=== PATIENT | female | born 1945 | race Caucasian/White ===

== ENCOUNTER 2017-11-13 11:15 | Day surgery (SDC) | payer MEDICARE, OTHER, SELFPAY ==
--- NOTE | 2017-11-13 07:10 | PCM.HP.BLA ---
History and Physical Date of Admission: 11/13/17 HISTORY AND PHYSICAL ? Abby Ferrara 1945 ? REFERRING PHYSICIAN: ~~Self ? CHIEF COMPLAINT: ~~Consult (Consult colonoscopy) ? HPI: The patient is a 72 year old female who presents for follow-up endoscopy. ? The patient underwent colonoscopy and upper endoscopy on September 01, 2016 which demonstrated gastritis and a larger polyp in the cecal base. ~~Pathology returned as tubulovillous adenoma. ~The site was tattooed and a clip applied. ~KUB demonstrated the clip to be in the cecum. ~She underwent CT scan of the abdomen and pelvis and pre operative lab studies. ~CEA level was within normal range. ~CT scan demonstrated the cecal mass, no significantly enlarged lymph nodes. ~There were lesions noted in the spleen. ~Splenic ultrasound was obtained. ~Review by the radiologist felt these were consistent with hemangiomas - an MRI was recommended. ~In discussions with the patient, she preferred to continue with the planned colon resection. ? I?performed a laparoscopic right hemicolectomy on 09/08/2016. ?The pathology demonstrated villous adenoma (3.5 cm), smaller tubular adenoma (0.6 cm). Appendix with no significant change and omentum with no significant change. 17 out of 17 lymph nodes with no significant pathology. ? ? She noted a recent bout of gastritis which gave her multiple loose stools, but otherwise has been doing well. ? PAST?MEDICAL?HISTORY PAST MEDICAL HISTORY Diagnosis Date Anxiety state, unspecified 12/28/2004 Depression ? Depressive disorder, not elsewhere classified ? Diverticulitis of colon (without mention of hemorrhage)(562.11) ? Essential hypertension, benign ? Obstructive sleep apnea ? ? [facility] Osteopenia ? Other and unspecified hyperlipidemia ? Stage III chronic kidney disease ? Unspecified asthma(493.90) ? ? 05/22/13, +OCTAVIO. Vitamin D deficiency ? ? ? PAST?SURGICAL?HISTORY PAST SURGICAL HISTORY Procedure Laterality Date COLONOSCOP W/ OR W/O BRSH SPEC ? 07/2001 ? Colonoscopy COLONOSCOPY ? 09/01/2016 ? cecal mass - tubulovillous adenoma - nonresectable EGD ? 09/01/2016 ? Gastritis, small hiatal hernia, distal mild esophagitis HEMORRHOID;BAND LIGAT, SNGL/MUL ? 1997 ? Hemorrhoidectomy LAPAROSCOPIC HEMICOLECTOMY ? 09/08/2016 PAST SURGICAL HISTORY OF ? 10/1987 ? rectal fistula surgery PAST SURGICAL HISTORY OF ? 12/1995 ? total hysterectomy -endometriosis REMOVAL GALLBLADDER ? 02/1985 ? Cholecystectomy ? ? CURRENT?MEDICATIONS ? Current Outpatient Prescriptions: fluconazole (DIFLUCAN) 100 mg tablet Take 1.5 tablets once. ~If still symptomatic in 3 days, take additional 1.5 tablets. hydrocortisone 2.5 % cream Apply 1 application to affected area twice daily. Apply to affected area sparingly. Use for 1 to 2 weeks then discontinue. ALPRAZolam (XANAX) 0.25 mg tablet Take 1 tablet by mouth once daily for 180 days. May take extra pill once daily as needed. lisinopril (ZESTRIL, PRINIVIL) 10 mg tablet Take 1 tablet by mouth once daily. albuterol HFA (PROAIR HFA) 90 mcg/actuation inhaler Inhale 2 Puffs as instructed every 4 hours as needed for Wheezing/Shortness of Breath. mometasone (ASMANEX TWISTHALER) 110 mcg (30 doses) twisthaler 1 inhalation once daily, in the morning. [place] teeth and gargle/rinse after use. clonazePAM (KLONOPIN) 0.5 mg tablet Take 1-2 tablets by mouth once daily for 90 days. as directed. sertraline (ZOLOFT) 100 mg tablet Take 1 tablet by mouth once daily. lovastatin (MEVACOR) 20 mg tablet Take 1 tablet by mouth once daily. buPROPion SR (WELLBUTRIN SR) 150 mg 12 hr tablet Take 1 tablet by mouth once daily. gentian jess 1 % soln Apply 1 application to affected area once daily as needed. Use a cotton swab with a small amount of solution to apply to oral mucosa for treatment of thrush once daily as needed. Need just enough to paint the oral mucosa (no more than the amount a cotton swab can hold). CPAP AutoPAP 9-20 cmH2O, suitable mask, humidity, filters. Lifetime supplies. Dx: G47.33 [place]-3 Fatty Acids (FISH OIL) 500 mg cap Take 2 capsules by mouth once daily. ranitidine (ZANTAC 75) 75 mg tablet Take 75 mg by mouth twice daily. CHOLECALCIFEROL (VITAMIN D3) 1,000 UNIT CAP takes two tablets daily MULTIVITAMIN ORAL TAB Take one(1) tablet daily. Miralax / Gatorade Prep Miralax 238 gm bottle, (2) 32 oz bottles of Gatorade, & 4 Dulcolax 5 mg tabs- as directed per instructions benzonatate (TESSALON PERLES) 100 mg capsule Take 1 capsule by mouth three times daily as needed. FOR COUGHING. ? No current facility-administered medications for this visit. ? ALLERGIES: Cats; Molds Extract ? PERSONAL HISTORY: SOCIAL?HISTORY Social History ~~Marital status: ~~~~~~~~~~~~Spouse name: johnathon ~~~~~~~~~~~ ~~Years of education: 16 ~~~~~~~~~~~~~Number of children: 1 ~~~~~~~~ ? Occupational History Occupation ~~~~~~~~~Employer ~~~~~~~~~~~Comment ~~~~~~~~~~~~ self employed ~~~~~~~~~~~~~~~~~~~~~~~~~~retired ? Social History Main Topics ~~Smoking status: Never Smoker ~~~~~~~~~~~~~~~~~~~~~~~~~~~~~~~~~~~~~~~~~~~~~~~~~~~~~~~~~ ? ~~Smokeless tobacco: Never Used ~~~~~~~~~~~~~~~~~~~ ~~Comment: Mother smoked in childhood home. 8 years ~~~~~~~~~~~office [employer] exp in late 20s. ~~Alcohol use: No ~~~~~~~~~ ~~Drug use: No ~~~~~~~~~ ~~Sexual activity: Yes ~~~~~~~~~~~~~~Partners with: Male ? Social History Narrative ~~In current home 10 years. No carpet. Area rugs. ~~1 cat in the home. ~~Central AC. Gas heating. ~~ ? ? FAMILY HISTORY: FAMILY?HISTORY FAMILY HISTORY Problem Relation Age of Onset COPD Mother ? Cancer Father ? ? ? Bladder Hypertension Father ? Allergies Father ? Allergies Paternal Grandmother ? Allergies Paternal Grandfather ? Allergies Brother ? Allergies Paternal Aunt ? Allergies Paternal Uncle ? Allergies Other ? ? ? Cousins ? REVIEW OF SYMPTOMS: ~~The review of systems data was entered by the nurse and reviewed by me ? There are no exam notes on file for this visit. ? ~ PHYSICAL EXAMINATION: ? General: ~The patient is 72 year old female, well nourished, well hydrated in no acute distress. ~The patient is oriented to time, place, and person. ? VITALS: Blood pressure 144/72, pulse 88.~There is no height or weight on file to calculate BMI.~ ? HEENT: ~Normal cephalic, ataumatic, pupils are equally round, sclera are anicteric, mucous membranes are moist, oropharynx is clear. ~Neck has no masses, asymmetry or lymphadenopathy. ~Thyroid is unremarkable. ? Respiratory: ~Clear to auscultation and percussion. ~Normal respiratory excursion and pattern. ? Cardiac: ~Examination is regular rate and rhythm. ? Abdominal exam: ~Soft, nontender, ~with no palpable masses. ~No hepatosplenomegaly. ~No palpable hernias. ? Rectal exam: exam deferred ? Extremities: ~no clubbing, cyanosis or edema. ~No adenopathy. ? Other: ? LABORATORY VALUES: As Noted ? RADIOLOGIC STUDIES: ~As Noted ? Assessment ~ IMPRESSION: History of right hemicolectomy for excision of large tubovillous adenoma ? PLAN: ~I plan to perform lower~endoscopy. ~~We discussed the risks and benefits of the planned endoscopy. ~I have informed the patient that complications can occur including failure to complete the endoscopy and perforation. ~The patient had the opportunity to ask questions concerning the planned endoscopy. ~My staff has also explained the procedure to the patient in understandable terms and has given the patient printed material concerning the procedure. ~The patient freely consents to surgery. ? I plan to use Miralax, Gatorade~bowel preparation for endoscopy ? ? ? Diagnoses: (D12.6) Tubulovillous adenoma of colon ~(primary encounter diagnosis) (D36.9) Tubular adenoma ? My findings have been communicated to Dr. Shahriar Encarnacion MD~via shared medical record. ~This note will be forwarded to Dr. Erna Encarnacion MD. ~~ Return to Clinic: The patient is instructed to follow-up with me after the testing has been completed. ? Silvano Braun MD
[2017-11-13 11:30] VITALS: BP 129/77; PULSE 86; RESP 16; TEMP 36.2; O2SAT 100; BMI 26.6
--- NOTE | 2017-11-13 12:15 | COLBX_PTH ---
PATIENT: TODD MADRID LOC: EN U#:[id number] AGE/SX: 72/F ROOM: RE11/13/[address]: Dr. Silvano Braun MD : 1945 BED: DIS: 11/13/2017 SPEC #: [id number] RECD: 11/13/17 13:27 STATUS: ROSETTE CRISTINA #: [id number] RYLEE: 11/13/17 12:[address]: Silvano Braun DEPT: SURGICAL PATHOLOGY RECD BY: Juan Miguel Magallanes ENTERED: 11/13/17 14:01 SP TYPE: COLON BX OTHR DR: Dr. Erna Encarnacion MD Tissues: Transverse colon Procedures: Surgery Specimen Level IV HEADER OPERATION: Colonoscopy (MAC) PRE-OP DIAGNOSIS: Screening post right hemicolectomy last year TISSUE SUBMITTED: Distal transverse polyp MICROSCOPIC DIAGNOSIS Distal transverse colon polyp, biopsy: Tubular adenoma. AM:masood 11/14/17 MICROSCOPIC DESCRIPTION Slides are reviewed. GROSS DESCRIPTION Received in fixative is one container labeled with the patient's name and designated distal transverse polyp. The specimen consists of one irregular fragment of light hunt soft tissue that measures 0.3 x 0.2 x 0.1 cm. The specimen is totally submitted in one cassette. / AM:masood 11/13/17 TC:5 CPT: 06449
--- NOTE | 2017-11-13 13:13 | PCM.OPRPT ---
Report of Operation Date of Procedure: 11/13/17 Pre-Operative Diagnosis: S/P RIGHT HEMICOLECTOMY FOR ADENOMATOUS POLYP, HIGH RISK SCREENING COLONOSCOPY Post-Operative Diagnosis: HEALTHY ANASTOMOSIS, POLYP DISTAL TRANSVERSE COLON, FEW DIVERTICULA, INTERNAL HEMORRHOIDS Surgery/Procedure Performed:: COLONOSCOPY WITH SNARE POLYPECTOMY Description of Surgical Findings:: ABOVE Type of Anesthesia:: MAC Anesthesiologist: Fredi Prabhakar - asa2 Specimen's removed: DISTAL TRANSVERSE COLONS POLYP Description of Procedure: The patient was brought to the endoscopy suite. Sign in was performed verifying patient, site, planned procedure, critical nursing information, the patient was monitored with cardiac, pulse oximetric, and blood pressure monitoring devices. Monitored anesthetic care was provided for sedation. Following IV sedation, the patient was positioned for colonoscopy. A digital rectal exam was performed which revealed no palpable abnormalities except for internal hemorrhoids The video colonoscope was inserted and advanced to the ileocolonic anastomosis. The scope was able to be advanced past the ileocolonic anastomosis and a normal small bowel. The anastomosis was healthy with no strictures or other abnormalities. As the scope was withdrawn, a small sessile polyp was encountered in the distal transverse colon. This was removed via hot snare polypectomy. As the scope was withdrawn. The remainder of the transverse colon, descending colon was unremarkable. There are a few small diverticula in the sigmoid colon. The remainder of the colon was unremarkable. This colon. The scope was retroflexed and the patient had internal hemorrhoids. The patient tolerated the procedure well and was brought to recovery in stable condition
[2017-11-13 13:18] VITALS: BP 127/70; BP 129/77; PULSE 88; RESP 16; TEMP 36.5; O2SAT 98
[2017-11-13 13:20] VITALS: BP 129/77; BP 130/63; PULSE 91; RESP 18; O2SAT 99
[2017-11-13 13:25] VITALS: BP 127/58; BP 129/77; PULSE 88; RESP 16; O2SAT 100
[2017-11-13 13:36] VITALS: BP 115/64; BP 129/77; PULSE 82; RESP 16; TEMP 36.9; O2SAT 100
[2017-11-13 14:11] VITALS: BP 129/77
== END 2017-11-13 14:12 | disposition home or self-care (01) ==
LOC: EN 11:16 → AC 11:17
PROVIDERS: Family Provider Internal Medicine; PCP Internal Medicine; Visit Provider Surgery
PROC: 0DJD8ZZ Inspection of Lower Intestinal Tract, Via Natural or Artificial Opening Endoscopic (ICD-10-PCS; CPT 45378; principal; 2017-11-13 12:10)
DX: Z12.11 Encounter for screening for malignant neoplasm of colon (principal); K57.30 Diverticulosis of large intestine without perforation or abscess without bleeding; D12.6 Benign neoplasm of colon, unspecified; K64.8 Other hemorrhoids; E78.5 Hyperlipidemia, unspecified; I12.9 Hypertensive chronic kidney disease with stage 1 through stage 4 chronic kidney disease, or unspecified chronic kidney disease; N18.3 Chronic kidney disease, stage 3 (moderate); J45.909 Unspecified asthma, uncomplicated; G47.33 Obstructive sleep apnea (adult) (pediatric)
CPT/HCPCS: 45380; 88305; J7120

== ENCOUNTER → 2019-05-30 20:00 | Outpatient (CLI) | payer MEDICARE, OTHER, SELFPAY | PROVIDERS: PCP Internal Medicine | DX: G47.33 Obstructive sleep apnea (adult) (pediatric) (principal) | CPT/HCPCS: 95811 ==

== ENCOUNTER 2019-06-22 18:10 | Emergency (ER) | payer MEDICARE, OTHER, SELFPAY ==
[2019-06-22] VITALS (21 sets, daily range): BP systolic 143–192; BP diastolic 70–98; PULSE 61–77; RESP 14–20; TEMP 36.2–36.8; O2SAT 93–100; BMI 28.3
--- NOTE | 2019-06-22 18:15 | ED.RN ---
NOTIFIED DR. CARRILLO OF PT'S S/SX, PER DR. CARRILLO, DO NOT CALL STROKE ALERT, HE WILL EVALUATE.
--- NOTE | 2019-06-22 18:22 | CT_ITS ---
STUDY: CT BRAIN WITHOUT CONTRAST REASON FOR EXAM: Female, 74 years old. Slurred speech RADIATION DOSAGE (If Supplied By Facility): CTDIvol = ( 44.99 ) mGy, DLP = ( 779.24 ) mGycm TECHNIQUE: Transaxial CT imaging of the brain was performed without administration of intravenous contrast material. Individualized dose optimization techniques were used for this CT. COMPARISON: None. FINDINGS: There is an old right occipital infarct and an old left cerebellar infarct with encephalomalacia. There is no acute bleed or infarct. There are chronic ischemic and atrophic changes. The ventricles are normal in configuration. There is no hydrocephalus. The visualized paranasal sinuses are clear. The mastoid air cells are well aerated. There is no skull fracture. CT/Brain/Head without Contrast IMPRESSION: Old infarcts in the right occipital lobe and left cerebellum. No acute intracranial abnormality. Chronic ischemic and atrophic changes. Electronically Signed: Stanford Jones, at 18:50 EDT Tel , Service support ,
--- NOTE | 2019-06-22 18:22 | EKG12_ITS ---
Test Reason : DYSRHYTHMIA Blood Pressure : / mmHG Vent. Rate : 070 BPM Atrial Rate : 070 BPM P-R Int : 172 ms QRS Dur : 080 ms QT Int : 388 ms P-R-T Axes : 060 046 090 degrees QTc Int : 419 ms Normal sinus rhythm Nonspecific T wave abnormality Abnormal ECG Confirmed by TIMBO SHEN, KENYA ([id number]), website/blog editor MAGALI MANRIQUEZ ([id number]) on 06/25/2019 1:55:16 PM Referred By: REGINA Confirmed By:KENYA IZQUIERDO MD
--- NOTE | 2019-06-22 18:24 | ED.VISSUMM ---
- ER Visit Summary Date of Service: 06/22/19 Chief Complaint: Slurred speech, facial droop History of Present Illness: The patient is a 74 F who had slurred speech and facial droop. According to the patient's family this started about 3-1/4 hours prior to arrival. She had slurred speech and facial droop at home. By the time she came to the emergency department her facial droop had resolved and her speech was still slurred. No weakness of her arms or legs. Denies a headache, nausea or vomiting. No history of stroke or TIA in the past. He is on no blood thinning medications. Physical Examination: Vital signs reviewed. HEENT exam unremarkable. Heart is regular rate and rhythm without murmurs. Lungs are clear to auscultation. Abdomen is soft and nontender. Extremities reveal no edema. Skin exam normal. Neurologic exam reveals an NIH of 2. She scored one-point for question and one-point for dysarthria. She does speak extemporaneously. Test Results: CAT scan of the head reveals old infarcts but nothing new. EKG was sinus rhythm with a rate of 70. Laboratory studies show a creatinine of 1.62. INR 1.2. Troponin normal. Emergency Department Course and Treatment: The patient's initial stroke scale was 2. She had a little bit of slurred speech and she thought it was May instead of June. The patient had her initial work-up. I did not call a stroke team initially because her stroke scale was low and her only symptom was the slurred speech. I then reevaluated the patient at 7:05 PM. Her speech was still slurred but she was having trouble getting words out and having expressive aphasia. I reevaluated an NIH stroke scale and it was 4. At this point I contacted [facility] using the tele-stroke robot. At 7:20 PM the neurologist, Dr. Lucas, evaluated the patient and her NIH stroke scale is actually improved. However, we both felt that with the waxing symptoms including her speech that she would be a candidate for TPA. Her symptoms started around 3:00 and was confirmed by her on the telephone. We were able to start infusing TPA right at 4.5 hours. She is less than 80 years old with no known history of strokes. Her INR is less than 1.7. Her blood pressure was around 180 systolic so she was given a dose of labetalol to keep it below this to facilitate TPA infusion. I discussed the risks, benefits and alternatives of TPA with the patient and she signed a consent form acknowledging the risks and benefits. At this point the patient will be transferred to [facility] for neurology consultation. Treatment Plan: [] Disposition: Transfer Impression: Ischemic stroke Critical care time 37 minutes This note was generated with [employer] dictation software. It may contain incorrect words, spelling, and punctuation that were not noted in review of the chart prior to signing ED Disposition - Plan for ED Patient: Referrals: Erna Encarnacion MD [Primary Care Provider] -
[2019-06-22 18:31] LABS: Absolute Lymphocyte Count 2.89 X10^3/uL (0.83-4.51); Basophil# 0.05 X10^3/uL; Basophil% 0.5 % (0-1); Eosinophil# 0.18 X10^3/uL; Eosinophils% 1.6 % (0-5); Hematocrit 42.3 % (37-47); Hemoglobin 14.1 g/dL (12.0-15.0); Lymphocyte # 2.89 X10^3/ul (4.0); Lymphocyte % 26.3 % (19-41); Mean Corp Hgb Conc 33.3 g/dL (32-36); Mean Corpuscular Hgb 29.7 pg (27.0-32.0); Mean Corpuscular Volume 89.2 fL (81-99); Mean Platelet Vol. 11.4 fl (6.2-12.0); Monocyte# 0.86 X10^3/uL; Monocyte% 7.8 % (0-10); NRBC Flagged by Analyzer 0 % (0-5); Neutrophil # 6.96 X10^3/uL (2.7-7.7); Neutrophil % 63.4 % (47-70); Platelet Count 209 K/mm3 (150-450); RBC Distribution Width CV 11.9 % (11.6-14.6); RBC Distribution Width SD 38.3 fl (35.1-43.9); Red Blood Count 4.74 M/mm3 (4.2-5.4)
[2019-06-22 18:46] LABS: Anion Gap 9 (5-15); BUN 26 mg/dL (7-18); Calcium,Total 9.5 mg/dL (8.5-10.1); Chloride 108 mmol/L (98-107); Creatinine, Serum 1.62 mg/dL (0.55-1.02); EST Glomerular Filtration Rate 33 mL/min (>60); Est Glom Filt Rate - Afr Amer 40 mL/min (>60); Estimated Creatinine Clearance 29.63 ml/min; Glucose 106 mg/dL (74-106); Potassium 3.8 mmol/L (3.5-5.1); Sodium Level 140 mmol/L (136-145)
[2019-06-22 18:52] LABS: International Normalized Ratio 1.2; Prothrombin Time (Protime)PT. 14.6 SECONDS (11.7-14.9)
[2019-06-22 18:54] LABS: Partial Thromboplast Time 43.9 Seconds (24.1-36.2)
--- NOTE | 2019-06-22 19:09 | ED.RN ---
upon Dr. Escalante re-evaluation of pt at 1905 pt had worsening symptoms and NIH score 4. Dr. Escalante requested [facility] to be called at this time. [facility] neurologist evaluated pt via stroke robot and recommended Tpa administration. Dr Escalante and neurologist agreed on the administration of Tpa and transfer of pt to [facility]. Pt and updated and agreed to plan of care. Dr Escalante discussed risks with pt. Pt agrees to Tpa administration.
--- NOTE | 2019-06-22 19:47 | ED.RN ---
this nurse spoke to pt and updated him on plan
--- NOTE | 2019-06-22 20:24 | ED.RN ---
[facility] arrived for transfer of pt to [facility]. During process of report they realized and stated that they are unable to take Tpa. Notification made to Dr Escalante and lost charge card clerk. Alternative transport in progress.
[2019-06-22] MEDS: 0.9% Normal Saline 1,000 ML 100 ML IV (21:05)
== END 2019-06-22 22:05 | disposition short-term general hospital (02) ==
LOC: ED 19:00
PROVIDERS: Emergency Provider Emergency Medicine; PCP Internal Medicine
DX: I63.9 Cerebral infarction, unspecified (principal); R29.810 Facial weakness; E78.00 Pure hypercholesterolemia, unspecified; N18.9 Chronic kidney disease, unspecified; I12.9 Hypertensive chronic kidney disease with stage 1 through stage 4 chronic kidney disease, or unspecified chronic kidney disease; G47.33 Obstructive sleep apnea (adult) (pediatric); Z90.49 Acquired absence of other specified parts of digestive tract; R29.704 NIHSS score 4
CPT/HCPCS: 51702; 70450; 80048; 84484; 85025; 85610; 85730; 93005; 99285; J2997; A4216

== ENCOUNTER → 2019-09-13 12:14 | Outpatient (CLI) | payer MEDICARE, OTHER, SELFPAY ==
[2019-06-22 18:22] VITALS: BMI 28.3
== END ==
PROVIDERS: PCP Internal Medicine; Referring Provider Internal Medicine Cardiovascular Disease; Visit Provider Internal Medicine Cardiovascular Disease
DX: Z01.810 Encounter for preprocedural cardiovascular examination (principal)
CPT/HCPCS: 87635; G2023; U0003

== ENCOUNTER 2021-05-25 17:52 | Outpatient (CLI) | payer MEDICARE, OTHER, SELFPAY ==
[2021-05-25 18:16] LABS: Absolute Neutrophil Count 7.4 X10^3/uL (2.0-7.7); Basophil# 0.05 X10^3/uL; Basophil% 0.5 % (0-1); Eosinophil# 0.35 X10^3/uL; Eosinophils% 3.3 % (0-5); Hemoglobin 14.2 g/dL (12.0-15.0); Lymphocyte % 18.8 % (19-41); Mean Corpuscular Hgb 29.8 pg (27.0-32.0); Mean Corpuscular Volume 90.1 fL (81-99); Mean Platelet Vol. 12.4 fl (6.2-12.0); Monocyte# 0.77 X10^3/uL; Monocyte% 7.2 % (0-10); NRBC Flagged by Analyzer 0 % (0-5); Neutrophil # 7.43 X10^3/uL (2.7-7.7); Neutrophil % 69.8 % (47-70); Platelet Count 201 K/mm3 (150-450); RBC Distribution Width CV 12.1 % (11.6-14.6); RBC Distribution Width SD 40.2 fl (35.1-43.9); Red Blood Count 4.77 M/mm3 (4.2-5.4); White Blood Count 10.6 K/mm3 (4.4-11.0)
[2021-05-25 19:04] LABS: ALB/GLOB Ratio 1.2 RATIO (0.9-2.4); AST(SGOT) 31 U/L (15-37); Alanine Aminotransfer ALT/SGPT 40 U/L (13-56); Albumin, Serum 4.3 g/dL (3.2-5.0); Alkaline Phosphatase 100 U/L (45-117); Anion Gap 5 (5-15); BUN 16 mg/dL (7-18); BUN/Creat Ratio 9.9 RATIO (10-20); Calcium,Total 9.1 mg/dL (8.5-10.1); Chloride 110 mmol/L (98-107); Creatinine, Serum 1.62 mg/dL (0.55-1.02); EST Glomerular Filtration Rate 33 mL/min (>60); Est Glom Filt Rate - Afr Amer 40 mL/min (>60); Globulin 3.7 g/dL (2.2-4.2); Glucose 110 mg/dL (74-106); Potassium 3.9 mmol/L (3.5-5.1); Sodium Level 142 mmol/L (136-145); Thyroid Stim Hormone (TSH) 0.87 uIU/mL (0.358-3.74)
[2021-05-26 08:27] LABS: Hepatitis C Antibody Non-Reactive (Nonreactive); Vitamin D,25 Hydroxy 40.9 ng/mL
== END 2021-05-25 23:59 | disposition home or self-care (01) ==
LOC: LAB 17:54
PROVIDERS: PCP Internal Medicine; Visit Provider Family Medicine Geriatric Medicine
DX: R53.83 Other fatigue (principal); Z13.89 Encounter for screening for other disorder; E55.9 Vitamin D deficiency, unspecified
CPT/HCPCS: 36415; 80053; 82306; 84443; 85025; 86803

== ENCOUNTER 2021-06-01 15:50 | Outpatient (CLI) | payer MEDICARE, OTHER, SELFPAY ==
--- NOTE | 2021-06-01 15:59 | BD_ITS ---
STUDY: DUAL ENERGY X-RAY ABSORPTIOMETRY / DXA REASON FOR EXAM: Female, 76 years old. Z780. The patient is postmenopausal. TECHNIQUE: Bone Mineral Density (BMD) measurements of lumbar spine and bilateral hips were obtained. COMPARISON: None. FINDINGS: Lumbar Spine (L1-L4): g/cm2 (0.986) / T-score (-0.3) / Z-score (2.1) Findings are suggestive of normal bone density with a low fracture risk. Left Femur Total: g/cm2 (0.796) / T-score (-1.2) / Z-score (0.6) Left Femoral Neck: g/cm2 (0.646) / T-score (-1.8) / Z-score (0.3) Right Femur Total: g/cm2 (0.757) / T-score (-1.5) / Z-score (0.3) Right Femoral Neck: g/cm2 (0.650) / T-score (-1.8) / Z-score (0.3) BD/Dexa Bone Density Study IMPRESSION: The patient is considered osteopenic as outlined below according to World Favian Organization (WHO) criteria with a moderate fracture risk. Reference Information: The T-score is the number of standard deviations above or below the standard which is normal for young adults at their peak bone mineral density. The World Health Organization (WHO) interprets the T-scores as follows: Above -1 Normal bone density Between -1 and -2.5 Osteopenia Equal to / or below -2.5 Osteoporosis As a practical clinical guideline, osteopenia may be graded as follows: Mild -1 through -1.5 Moderate -1.6 through -2.0 Severe -2.1 through -2.4 The Z-score is the number of standard deviations above or below age-matched controls. A Z-score of less than -1.5 would be considered abnormal. References: 1. NIH Osteoporosis and Related Bone Diseases www osteo.org 2. International Society for Clinical Densitometry www iscd.org 3. National Osteoporosis Foundation www nof.org Electronically Signed: Huy Bates MD at 14:24 EDT ,
== END 2021-06-01 23:59 | disposition home or self-care (01) ==
LOC: OPBD 15:50
PROVIDERS: PCP Internal Medicine; Referring Provider Family Medicine Geriatric Medicine; Visit Provider Family Medicine Geriatric Medicine
DX: Z78.0 Asymptomatic menopausal state (principal)
CPT/HCPCS: 77080

== ENCOUNTER 2021-06-16 09:38 | Inpatient (IN) | payer MEDICARE, OTHER, SELFPAY ==
[2021-06-16] VITALS (14 sets, daily range): BP systolic 138–163; BP diastolic 66–110; PULSE 71–85; RESP 15–19; TEMP 35.8–37.4; O2SAT 95–99; BMI 28.8; BMI 25.9
--- NOTE | 2021-06-16 09:46 | EKG12_ITS ---
Test Reason : STROKE Blood Pressure : / mmHG Vent. Rate : 069 BPM Atrial Rate : 069 BPM P-R Int : 146 ms QRS Dur : 084 ms QT Int : 372 ms P-R-T Axes : 059 032 093 degrees QTc Int : 398 ms Normal sinus rhythm Nonspecific T wave abnormality Abnormal ECG Confirmed by LILY SHEN, SARAH ([id number]), editor department FELICIA MELENDEZ ([id number]) on 06/18/2021 2:11:18 PM Referred By: VERONIQUE Confirmed By:NICK BAUTISTA MD
--- NOTE | 2021-06-16 09:46 | CT_ITS ---
STUDY: CT HEAD STROKE PROTOCOL W/O CONTRAST INJECTION REASON FOR EXAM: Female, 76 years old. Neuro deficit, acute, stroke suspected RADIATION DOSAGE (If Supplied By Facility): CTDIvol = ( 44.99 ) mGy, DLP = ( a 12.98 ) mGycm TECHNIQUE: Transaxial CT imaging of the brain was performed without administration of intravenous contrast material. Individualized dose optimization techniques were used for this CT. COMPARISON: Comparison is made with prior study dated 06/22/2019. FINDINGS: Normal soft tissue structures. Normal calvarium. There is mild cerebral atrophy with widening of the extra-axial spaces and ventricular dilatation. There are areas of decreased attenuation within the white matter tracts of the supratentorial brain, consistent with microvascular disease changes. There are small punctate calcifications of the basal ganglia which are seen in the aging brain as a normal variant. Normal brainstem. Stable 1.2 cm hypodensity in the anterior left cerebellar hemisphere and compared with the prior ischemic insult. There is no intracranial hemorrhage. There are no findings of an acute ischemic infarction. Atherosclerotic calcification of the cavernous portions of the internal carotid arteries bilaterally. Normal visualized paranasal sinuses. ASPECT score: 10 CT/STROKE Brain/Head without Cont IMPRESSION: Chronic involutional changes of the brain. N.B. : The above Results were Read Back by Huy Bates MD to Gladys Ayala and understanding confirmed on 06/16/2021 09:57:24 (ET). Electronically Signed: Huy Bates MD at 9:59 EDT ,
--- NOTE | 2021-06-16 09:46 | CT_ITS ---
STUDY: CTA HEAD AND NECK WITH CONTRAST REASON FOR EXAM: 76-year-old female patient with neural deficit RADIATION DOSAGE (If Supplied By Facility): CTDIvol = ( 23 ) mGy, DLP = ( 697.42 ) mGycm TECHNIQUE: CT angiography was performed with a multi-detector CT scanner. Data acquisition was obtained from the skull base through the vertex following intravenous administration of IV 100mL Isovue-370. MIP images were reconstructed from the axial data set. Post-processing of the angiographic images was performed, with multiplanar reformation and 3D reconstruction. Individualized dose optimization techniques were used for this CT. COMPARISON: No relevant priors. FINDINGS: Normal bilateral petrous carotid arteries. There is calcified plaque formation of the right cavernous carotid artery, without a cross-sectional luminal stenosis. There is calcified plaque formation of the left cavernous carotid artery, without a cross-sectional luminal stenosis. Normal right A1 segments of the anterior cerebral artery. Normal left A1 segments of the anterior cerebral artery. Normal intact anterior communicating artery (ACOM). Normal bilateral A2 segments of the anterior cerebral arteries. Normal right M1 and M2 segments of the middle cerebral arteries, with a normal M1 bifurcation. Normal left M1 and M2 segments of the middle cerebral arteries, with a normal M1 bifurcation. Normal right posterior communicating artery (PCOM). Normal left posterior communicating artery (PCOM). Normal bilateral vertebral arteries. Normal basilar artery with a normal basilar bifurcation. The visualized bilateral superior cerebellar (SCA) arteries are normal. Normal bilateral P1, P2 and visualized P3 segments of the posterior cerebral arteries. There is no demonstrated aneurysm of the [place]. Chronic involutional changes of the brain. AORTIC ARCH: There is atherosclerotic calcific plaque formation of the aortic arch and great vessels arising from the aortic arch, without a hemodynamically significant stenosis. There is a normal origin of the brachiocephalic, left common carotid, and left subclavian arteries. Heterogeneous appearance of the thyroid more prominent involving the right lobe of the thyroid gland. RIGHT CAROTID ARTERIES: Normal right common carotid artery (CCA). Normal right common carotid bulb. There is mild atherosclerotic plaque formation of the origin of the right internal carotid artery with less than 50% cross sectional diameter stenosis. Normal visualized cervical portion of the right internal carotid artery. Normal origin of the right external carotid artery (ECA). LEFT CAROTID ARTERIES: Normal left common carotid artery (CCA). Normal left common carotid bulb. There is mild atherosclerotic plaque formation of the origin of the left internal carotid artery with less than 50% cross sectional diameter stenosis. Normal visualized cervical portion of the left internal carotid artery. Normal origin of the left external carotid artery (ECA). VERTEBRAL ARTERIES: There is enhancement within the bilateral vertebral arteries with a small right vertebral artery, and a dominant left vertebral artery. CT/STROKE CTA Head AND Neck W/Con IMPRESSION: Small right vertebral artery. Atherosclerotic plaque calcification at the origin of both the right and left internal carotid arteries causing less than 50% stenosis. N.B. : The above Results were Read Back by Huy Bates MD to [facility] and understanding confirmed on 06/16/2021 10:50:54 (ET). Electronically Signed: Huy Bates MD at 10:52 EDT ,
--- NOTE | 2021-06-16 09:48 | EDS_ITS ---
HPI History of Present Illness Chief Complaint: Fall Informant: patient and EMS Narrative Narrative: 76-year-old female presenting after fall. Patient states she woke up feeling off balance this morning. When she tried to walk to the bathroom she fell and hit the back of her head. She did not lose consciousness. She woke up around 7 AM. At 9 AM her noticed slurred speech and trouble finding words. She is not on anticoagulants. Prior similar symptoms: No PFSH PFSH Medical History (Updated 06/16/21 @ 11:[address] Gladys Ayala MD) Allergic rhinitis Anxiety Asthma CKD (chronic kidney disease) stage 3, GFR 30-59 ml/min CVA (cerebral vascular accident) Dysthymia Essential (primary) hypertension Hyperlipidemia NSVT (nonsustained ventricular tachycardia) Occult blood in stools SABRINA (obstructive sleep apnea) Osteopenia Parasomnia Recurrent major depressive disorder, in full remission Status post placement of implantable loop recorder (~09/18/19) Tubulovillous adenoma of colon Vitamin D deficiency Home Medications cholecalciferol (vitamin D3) 1,000 unit PO BID 08/29/16 [History Last Taken Unknown] clonazepam 2 mg PO DAILY 08/29/16 [History Last Taken 11/13/17 0800] atorvastatin 40 mg tablet 40 mg PO QHS 11/01/19 [History Last Taken Unknown] amlodipine 5 mg PO DAILY 06/16/21 [History Last Taken Unknown] aspirin 81 mg PO DAILY 06/16/21 [History Last Taken Unknown] dextromethorphan-quinidine [Nuedexta] 1 cap PO Q12H 06/16/21 [History Last Taken Unknown] Allergy/AdvReac Type Severity Reaction Status Date / Time No Known Allergies Allergy Verified 10/31/19 11:34 Family History Mother Emphysema lung Brother Cancer Kidney Stomach ulcer Father Cancer Bladder Aunt CVA (cerebral vascular accident) Surgical History History of cholecystectomy History of hysterectomy Social History (Updated 10/31/19 @ 12:[address] Manuelito Dove MD) Smoking Status: Never smoker second hand exposure: Yes alcohol intake: never substance use type: does not use caffeine: No what type of physical activity do you participate in: none ROS ROS ED Constitutional Constitutional ED: Denies fever(s) Eyes Eyes: Denies change in vision ENT ENT ED: Denies rhinorrhea or sore throat Cardiovascular Cardiovascular: Denies chest pain or palpitations Respiratory/Chest Respiratory/Chest: Denies cough or dyspnea Gastrointestinal Gastrointestinal: Denies abdominal pain, diarrhea, nausea or vomiting Genitourinary Genitourinary ED: Denies dysuria Musculoskeletal Musculoskeletal: Denies myalgias Integumentary Denies rash Neurologic Neurologic: Reports other Details: vertigo, slurred speech ; Denies headache(s) Psychiatric Psychiatric: Denies suicidal thoughts EXAM Physical Exam Const Vital Signs: 06/16/21 09:40 06/16/21 09:46 06/16/21 09:58 Temperature 96.5 F L Temperature Source Temporal Pulse Rate 73 72 76 Respiratory Rate 15 15 17 Blood Pressure 162/105 H 162/105 H 146/110 H Blood Pressure Mean 124 124 122 Pulse Ox 99 97 97 Oxygen Delivery Method Room Air Room Air Room Air 06/16/21 10:58 06/16/21 11:02 Temperature Temperature Source Pulse Rate 71 73 Respiratory Rate 17 19 H Blood Pressure 140/66 H 162/75 H Blood Pressure Mean 90 104 Pulse Ox 95 96 Oxygen Delivery Method Room Air Room Air Positive well nourished and well developed General Appearance ED: well developed HEENT Reports normocephalic and head/scalp atraumatic Eyes PERRL and EOMs intact bilaterally Neck supple General: Negative for tenderness Chest Wall inspection of chest normal Resp normal respiratory effort and clear to auscultation bilaterally Cardio regular rate and regular rhythm GI non-tender and non-distended Palpation: soft; Negative for guarding or rebound tenderness present no CVA tenderness Extremity normal to inspection Neuro oriented x3 Neuro Narrative: NIH 2 for dysarthria and expressive aphasia Sensorium / Orientation: alert Psych mental status grossly normal MDM MDM MDM Narrative Medical decision making narrative: Stroke team was activated due to wake-up stroke symptoms. Noncontrast head CT shows chronic involutional changes of the brain. [facility] neurology was consulted. Recommend admission for stroke work-up. CTA head and neck was obtained which shows small right vertebral artery. Atherosclerotic plaque at the origin of both the right and left internal carotid arteries causing less than 50% stenosis. CBC, chemistries were obtained. Creatinine is 1.37. Troponin is negative. On repeat evaluation her NIH is 1 for dysarthria. Discussed with hospitalist for admission. Lab Data Attestation: I reviewed the patient's lab results. Labs: Laboratory Results - last 24 hr 06/16/21 06/16/21 06/16/21 09:55 09:55 09:55 WBC 9.4 RBC 4.18 L Hgb 12.6 Hct 37.3 MCV 89.2 MCH 30.1 MCHC 33.8 RDW Std Deviation 39.8 RDW Coeff of Joy 12.2 Plt Count 164 MPV 12.3 H Immature Gran % (Auto) 0.500 Neut % (Auto) 79.3 H Lymph % (Auto) 13.4 L [place] % (Auto) 4.9 Eos % (Auto) 1.6 Baso % (Auto) 0.3 Absolute Neuts (auto) 7.4 Absolute Lymphs (auto) 1.26 Nucleated RBC % 0 PT 14.2 INR 1.2 APTT 38.2 H Sodium 138 Potassium 4.0 Chloride 111 H Carbon Dioxide 22.0 Anion Gap 5 BUN 22 H Creatinine 1.37 H Estim Creat Clear Calc 31.44 Est GFR (MDRD) Af Amer 48 L Est GFR (MDRD) Non-Af 40 L BUN/Creatinine Ratio 16.1 Glucose 132 H Calcium 8.5 Troponin I High Sens 33 Radiography Chest X-Ray - ED: 1 View, Read by ED Physician and Read by Radiologist Diagnostic Testing: Clinical Impression(s) from Imaging Studies Brain CT 06/16/21 09:46 IMPRESSION: Chronic involutional changes of the brain. N.B. : The above Results were Read Back by Huy Bates MD to Gladys Ayala and understanding confirmed on 06/16/2021 09:57:24 (ET). Electronically Signed: Huy Bates MD at 9:59 EDT , Head/Neck CTA 06/16/21 09:46 IMPRESSION: Small right vertebral artery. Atherosclerotic plaque calcification at the origin of both the right and left internal carotid arteries causing less than 50% stenosis. N.B. : The above Results were Read Back by Huy Bates MD to Gladys Ayala and understanding confirmed on 06/16/2021 10:50:54 (ET). Electronically Signed: Huy Bates MD at 10:52 EDT , ADDENDUM: 06/16/21 1058 IMPRESSION: Small right vertebral artery. Atherosclerotic plaque calcification at the origin of both the right and left internal carotid arteries causing less than 50% stenosis. N.B. : The above Results were Read Back by Huy Bates MD to Gladys Ayala and understanding confirmed on 06/16/2021 10:50:54 (ET). Electronically Signed: Huy Bates MD at 10:52 EDT , Chest X-Ray 06/16/21 10:20 IMPRESSION: Hyperinflation. Mild increased markings at the lung bases suggestive of linear atelectasis and/or scarring slightly more prominent on the right side. Electronically Signed: Huy Bates MD at 11:13 EDT , EKG Initial EKG: Attestation: I personally reviewed and interpreted this EKG as follows: Interpretation: Sinus Rhythm and No Acute Injury Pattern Discharge Plan Triage Chief Complaint: Fall ED Provider: Gladys Ayala Dx/Rx/DC Orders Clinical Impression: CVA (cerebral vascular accident) Prescriptions: No Action clonazepam 0.5 MG tablet 2 mg PO DAILY RF: 0 cholecalciferol (vitamin D3) 1,000 UNIT capsule 1,000 unit PO BID RF: 0 amlodipine 5 mg tablet 5 mg PO DAILY RF: 0 aspirin 81 mg Tablet 81 mg PO DAILY RF: 0 Nuedexta 20-10 mg Capsule 1 cap PO Q12H RF: 0 atorvastatin 40 mg tablet 40 mg PO QHS RF: 0 Primary Care Provider: Erna Encarnacion Referrals: Erna Encarnacion MD [Primary Care Provider] - Disposition Disposition: Acute Care Hospital [facility]
[2021-06-16 10:08] LABS: Absolute Lymphocyte Count 1.26 X10^3/uL (0.83-4.51); Absolute Neutrophil Count 7.4 X10^3/uL (2.0-7.7); Basophil# 0.03 X10^3/uL; Basophil% 0.3 % (0-1); Eosinophil# 0.15 X10^3/uL; Eosinophils% 1.6 % (0-5); Hematocrit 37.3 % (37-47); Hemoglobin 12.6 g/dL (12.0-15.0); Lymphocyte # 1.26 X10^3/ul (0.83-4.51); Lymphocyte % 13.4 % (19-41); Mean Corp Hgb Conc 33.8 g/dL (32-36); Mean Corpuscular Hgb 30.1 pg (27.0-32.0); Mean Corpuscular Volume 89.2 fL (81-99); Mean Platelet Vol. 12.3 fl (6.2-12.0); Monocyte# 0.46 X10^3/uL; Monocyte% 4.9 % (0-10); NRBC Flagged by Analyzer 0 % (0-5); Neutrophil # 7.42 X10^3/uL (2.7-7.7); Neutrophil % 79.3 % (47-70); Platelet Count 164 K/mm3 (150-450); RBC Distribution Width CV 12.2 % (11.6-14.6); RBC Distribution Width SD 39.8 fl (35.1-43.9); Red Blood Count 4.18 M/mm3 (4.2-5.4); White Blood Count 9.4 K/mm3 (4.4-11.0)
--- NOTE | 2021-06-16 10:20 | RAD_ITS ---
STUDY: X-RAY CHEST REASON FOR EXAM: Female, 76 years old. Neuro deficit, acute, stroke suspected TECHNIQUE: Single AP portable view of the chest. COMPARISON: None. FINDINGS: EKG electrodes are seen. There is hyperinflation of the lungs consistent with chronic obstructive lung disease (COPD). Mild degree of increased markings at the lung bases likely more prominent at the right lung base suggestive of linear scarring or linear atelectasis. There is no demonstrated pleural abnormality. Normal size heart. A loop recording device is seen overlying the left cardiac border. Normal mediastinum and araceli. Normal visualized pulmonary arteries. Normal visualized aortic arch and descending thoracic aorta. Normal visualized thoracic spine. Normal visualized ribs, clavicles, and shoulders. There is no demonstrated abnormality of the visualized soft tissue structures of the upper abdomen. RAD/Chest 1 View IMPRESSION: Hyperinflation. Mild increased markings at the lung bases suggestive of linear atelectasis and/or scarring slightly more prominent on the right side. Electronically Signed: Huy Bates MD at 11:13 EDT ,
[2021-06-16 10:28] LABS: Anion Gap 5 (5-15); BUN 22 mg/dL (7-18); BUN/Creat Ratio 16.1 RATIO (10-20); Calcium,Total 8.5 mg/dL (8.5-10.1); Chloride 111 mmol/L (98-107); Creatinine, Serum 1.37 mg/dL (0.55-1.02); EST Glomerular Filtration Rate 40 mL/min (>60); Est Glom Filt Rate - Afr Amer 48 mL/min (>60); Estimated Creatinine Clearance 31.44 ml/min; Glucose 132 mg/dL (74-106); Sodium Level 138 mmol/L (136-145); Troponin-I HS 33 pg/mL (3.0-54.0)
--- NOTE | 2021-06-16 11:14 | ED.RN ---
LAB REPORTS COAG RESULTS WITHIN THE NEXT 15-20 MINUTES D/T SYSTEM ISSUES.
[2021-06-16 11:21] LABS: International Normalized Ratio 1.2; Prothrombin Time (Protime)PT. 14.2 SECONDS (11.7-14.9)
[2021-06-16 11:22] LABS: Partial Thromboplast Time 38.2 Seconds (24.1-36.2)
--- NOTE | 2021-06-16 11:26 | NURSING ---
DR HENRRY PIPER
--- NOTE | 2021-06-16 11:35 | ECHOD_ITS ---
Reason For Study: TIA/CVA Procedure This was a 2D Doppler, Color Flow transthoracic echocardiogram. Exam performed portable in patient room. Left Ventricle The estimated ejection fraction is 65 %. Normal diastology for age. No regional wall motion abnormalities noted. Right Ventricle Normal RV size. Normal systolic function. Atria Normal left atrium. Normal right atrium. No doppler evidence for ASD. Mitral Valve There is mild mitral annular calcification. There is no mitral valve stenosis. Mild (1+) mitral valve insufficiency. Tricuspid Valve There is no tricuspid stenosis. Trivial tricuspid valve insufficiency. Pulmonary artery systolic pressure is 35 mmHg. Aortic Valve Trisinus/trileaflet aortic valve. There is no aortic stenosis. Mild (1+) aortic valve insufficiency. Pulmonic Valve There is no pulmonic valvular stenosis. No pulmonic valve insufficiency. Great Vessels Normal aortic root. Pericardium/Pleural Small to moderate pericardial effusion adjacent to the right ventricle with echodensity suggestive of fibrinous material. Small to moderate effusion was also reported in an outside echo from June 2019. MMode/2D Measurements & Calculations LVIDd: 4.2 cm IVSd: 1.2 cm Ao root diam: 3.0 cm LVIDs: 2.5 cm LVPWd: 1.1 cm RVDd: 3.0 cm FS: 38.7 % LAV(MOD-bp): 45.6 ml LVAd ap4: 25.1 cm2 SV(MOD-sp4): 46.6 ml LAV(MOD-bp) Indexed: 24.5 ml/m2 LVLd ap4: 7.5 cm LAV(MOD-sp2): 45.1 ml EDV(MOD-sp4): 67.8 ml LAV(MOD-sp4): 41.9 ml EDV(sp4-el): 71.2 ml LVAs ap4: 12.2 cm2 LVLs ap4: 6.2 cm ESV(MOD-sp4): 21.2 ml ESV(sp4-el): 20.4 ml EF(MOD-sp4): 68.7 % EF(sp4-el): 71.4 % SV(sp4-el): 50.8 ml LA A4 area: 16.2 cm2 LA dimension(2D): 4.0 cm RA A4 area: 14.2 cm2 Time Measurements MV dec time: 0.24 sec Doppler Measurements & Calculations MV E max alo: 74.5 cm/sec Lat Peak E' Alo: 8.8 cm/sec Med Peak E' Alo: 5.1 cm/sec MV A max alo: 122.0 cm/sec E/E' lat: 8.5 E/E' med: 14.6 MV E/A: 0.61 Ao V2 max: 190.4 cm/sec LV V1 max: 115.6 cm/sec PA V2 max: 98.0 cm/sec Ao max P.5 mmHg LV V1 max P.3 mmHg TR max alo: 282.8 cm/sec TR max P.0 mmHg ECHO/Echo Complete Interpretation Summary The estimated ejection fraction is 65 %. Normal diastology for age. Mild (1+) mitral valve insufficiency. Mild (1+) aortic valve insufficiency. Small to moderate pericardial effusion adjacent to the right ventricle with ech odensity suggestive of fibrinous material. Small to moderate effusion was also reported in an outsi de echo from June 2019. Ordering Physician: Brenda Lucas Referring Physician: ITNG SCHMITT Performed By: Jody Shaikh, NAKIA
--- NOTE | 2021-06-16 11:36 | PCM.HP.STD ---
HPI - General HPI Narrative TODD MADRID, is a 76 F who presented to the emergency department at [facility] on 06/16/2021 secondary to dizziness, dysarthria, and aphasia. Evidently, the patient woke up this morning and had to go to the bathroom her was helping her and she got up and felt dizzy and fell backwards and hit her head. Her then noted that her speech was somewhat garbled and she appeared to have word finding difficulty. When I asked her to describe the dizziness she stated that the world was spinning. She has had some intermittent nausea but no significant emesis related to this. Stroke team was called and she was evaluated by [facility]. Her NIH was found to be 2 on presentation and improved to 1 at the time of admission. No TPA was recommended at this time but they did recommend admission for stroke work-up. Patient does have a history of stroke remotely. She resented to the emergency department here in June 2019 with facial droop and dysarthria. She was evaluated by [facility] stroke team at that time and given TPA and transferred to [facility]. She underwent stroke work-up and the stroke was deemed to be cryptogenic. She was placed on aspirin and an event monitor was ordered. Her event monitor did show some episodes of nonsustained VT and therefore a implanted loop recorder was placed. It appears she followed up with Dr. Dove with regards to this an outpatient testing to assess for ischemic cardiac disease was suggested however I do not see that she ever followed up with this and her last appointment with Dr. Dove was 10/31/2019. Her last loop recorder interrogation was documented to be 02/03/2020. She unfortunately still has the loop recorder implanted and therefore this will prohibit MRI for follow-up. In the emergency department she was afebrile with a heart rate in the 70s, her initial blood pressures were elevated however they appear to be labile with the most recent one being 138/76. Her respiratory rate was 16 and her oxygen saturations were anywhere from 95 to 99% on room air. Her CBC was unimpressive. Coagulation studies were performed and found to be within normal limits. Her chemistry panel showed an elevated BUN and creatinine which appear to be her baseline. Serum BUN was 22 and creatinine was 1.37. Blood glucose was 132. A troponin was assessed and found to be normal at 33. TSH was performed and found to be 0.75. CT of her brain was done upon presentation and shows chronic involutional changes as well as a stable 1.2 cm hypodense area in the anterior left cerebellar hemisphere and compared with prior ischemic insult. A CTA of her head and neck was performed and showed a small right vertebral artery, atherosclerotic plaque at the origin of both the right and left internal carotid arteries causing less than 50% stenosis. Her chest x-ray was performed and was overall unimpressive. Her EKG showed normal sinus rhythm with no ST-T wave changes consistent with ischemia and no ectopy. Her NIH at the time of my evaluation remained at 1 for her speech abnormalities. [facility], [facility] Medical History (Updated 06/16/21 @ 12:[address] Brenda Lucas DO) Allergic rhinitis Anxiety Asthma CKD (chronic kidney disease) stage 3, GFR 30-59 ml/min CVA (cerebral vascular accident) Dysthymia Essential (primary) hypertension Hyperlipidemia NSVT (nonsustained ventricular tachycardia) Occult blood in stools SABRINA (obstructive sleep apnea) Osteopenia Parasomnia Recurrent major depressive disorder, in full remission Status post placement of implantable loop recorder (~09/18/19) Tubulovillous adenoma of colon Vitamin D deficiency Home Medications cholecalciferol (vitamin D3) 1,000 unit PO BID 08/29/16 [History Last Taken Unknown] clonazepam 2 mg PO DAILY 08/29/16 [History Last Taken 11/13/17 0800] atorvastatin 40 mg tablet 40 mg PO QHS 11/01/19 [History Last Taken Unknown] amlodipine 5 mg PO DAILY 06/16/21 [History Last Taken Unknown] aspirin 81 mg PO DAILY 06/16/21 [History Last Taken Unknown] dextromethorphan-quinidine [Nuedexta] 1 cap PO Q12H 06/16/21 [History Last Taken Unknown] Allergy/AdvReac Type Severity Reaction Status Date / Time No Known Allergies Allergy Verified 10/31/19 11:34 Family History Mother Emphysema lung Brother Cancer Kidney Stomach ulcer Father Cancer Bladder Aunt CVA (cerebral vascular accident) Surgical History History of cholecystectomy History of hysterectomy Social History Smoking Status: Never smoker second hand exposure: Yes alcohol intake: never substance use type: does not use caffeine: No what type of physical activity do you participate in: none ROS Constitutional Constitutional: Denies anorexia, change in weight, chills, fatigue, fever(s), malaise, night sweats, weakness or other Eyes Eyes: Denies blurry vision, change in eye color, change in vision, discharge from eye(s), double vision, erythema, eye pain, loss of vision or other ENT HEENT: Denies abnormal hearing, dysphagia, ear pain, epistaxis, headache(s), hearing loss, nasal congestion, nasal discharge, post nasal drip, sinus pressure, sore throat or other Cardiovascular Cardiovascular: Denies chest pain, claudication, dyspnea on exertion, edema, lightheadedness, orthopnea, palpitations, paroxysmal nocturnal dyspnea, rapid heart rate, syncope or other Respiratory/Chest Respiratory/Chest: Denies cough, dyspnea, excessive phlegm production, hemoptysis, productive cough, shortness of breath at rest, shortness of breath with exertion, wheezing or other Gastrointestinal Gastrointestinal: Reports nausea; Denies abdominal pain, coffee ground emesis, constipation, diarrhea, dyspepsia, hematemesis, hematochezia, loose stools, melena, vomiting or other Genitourinary Genitourinary: Denies burning urination, difficulty urinating, dysuria, hematuria, nocturia, urinary frequency, urinary hesitancy, urinary incontinence, urinary urgency or other Musculoskeletal Musculoskeletal: Denies arthralgias, back pain, joint pain, joint stiffness, joint swelling, myalgias, neck pain or other Neurologic Neurologic: Reports abnormal speech and dizziness; Denies abnormal gait, confusion, disequilibrium, focal weakness, headache(s), numbness, paresthesias, seizure-like activity, seizures, syncope, tingling, tremor(s) or other Psychiatric Psychiatric: Reports anxiety; Denies depression, homicidal ideation, suicidal ideation or other Endocrine Endocrinology: Denies change in body appearance, cold intolerance, excessive sweating, heat intolerance, polydipsia, polyuria or other Hematologic/Lymphatic Hematologic/Lymphatic: Denies anemia, easy bleeding, easy bruising, lymphadenopathy or other Allergic/Immunologic Allergic/Immunologic: Denies rhinitis, hives, eczemia, asthma or other Vital Signs Vital Signs Vital Signs: 06/16/21 09:40 06/16/21 09:46 06/16/21 09:58 Temperature 96.5 F L Temperature Source Temporal Pulse Rate 73 72 76 Respiratory Rate 15 15 17 Blood Pressure 162/105 H 162/105 H 146/110 H Blood Pressure Mean 124 124 122 Pulse Ox 99 97 97 Oxygen Delivery Method Room Air Room Air Room Air 06/16/21 10:58 06/16/21 11:02 Temperature Temperature Source Pulse Rate 71 73 Respiratory Rate 17 19 H Blood Pressure 140/66 H 162/75 H Blood Pressure Mean 90 104 Pulse Ox 95 96 Oxygen Delivery Method Room Air Room Air Weight Weight: 78.6 kg Body Mass Index (BMI) 28.8 Physical Exam Const alert, oriented x3 and no apparent distress Constitutional Narrative: Overweight older white female sitting up in bed, is at the bedside, patient appears comfortable nontoxic, speech is somewhat garbled and states that this is not her current baseline General Appearance: cooperative HEENT normocephalic, head/scalp atraumatic, hearing grossly normal bilaterally and moist oral mucous membranes HEENT Narrative: Poor dentition, Mallampati 2, no thrush Eyes PERRL, EOMs intact bilaterally and conjunctivae normal Eyes Narrative: No scleral icterus Neck no lymphadenopathy, supple, no JVD and no carotid bruits Neck Narrative: Trachea midline without any thyroid enlargement Resp normal respiratory effort, no retractions, no use of accessory muscles and clear to auscultation bilaterally Auscultation: Negative for crackles, rales, rhonchi or wheezes Cardio regular rate, regular rhythm, S1 normal heart sound, S2 normal heart sound, no murmurs, no rub, no gallops, no clicks and no JVD GI normal to inspection, nondistended, normoactive bowel sounds, soft to palpation, non-tender and non-distended; Negative for hepatosplenomegaly Extremity no clubbing, cyanosis or edema Peripheral Pulses: Yes pulses 2+ throughout Skin no rashes or lesions noted, no wounds, skin turgor normal, no jaundice and no mottling Neuro oriented x3, moves all extremities and no focal motor deficits Neuro Narrative: Dysarthria and garbled speech but otherwise cranial nerves are within normal limits, reflexes are 2+ bilateral upper and lower extremities Sensorium / Orientation: awake and alert Motor Exam: strength 5/5 throughout Psych affect normal Psych Narrative: Very pleasant Results Lab / Micro Data Attestation: I reviewed the patient's lab results. Result Diagrams: 06/16/21 09:55 06/16/21 09:55 Labs: Laboratory Results - last 24 hr 06/16/21 09:55: WBC 9.4, RBC 4.18 L, Hgb 12.6, Hct 37.3, MCV 89.2, MCH 30.1, MCHC 33.8, RDW Std Deviation 39.8, RDW Coeff of Joy 12.2, Plt Count 164, MPV 12.3 H, Immature Gran % (Auto) 0.500, Neut % (Auto) 79.3 H, Lymph % (Auto) 13.4 L, [place] % (Auto) 4.9, Eos % (Auto) 1.6, Baso % (Auto) 0.3, Absolute Neuts (auto) 7.4, Absolute Lymphs (auto) 1.26, Nucleated RBC % 0 06/16/21 09:55: PT 14.2, INR 1.2, APTT 38.2 H 06/16/21 09:55: Sodium 138, Potassium 4.0, Chloride 111 H, Carbon Dioxide 22.0, Anion Gap 5, BUN 22 H, Creatinine 1.37 H, Estim Creat Clear Calc 31.44, Est GFR (MDRD) Af Amer 48 L, Est GFR (MDRD) Non-Af 40 L, BUN/Creatinine Ratio 16.1, Glucose 132 H, Calcium 8.5, Troponin I High Sens [address] 06/16/21 09:46 IMPRESSION: Chronic involutional changes of the brain. N.B. : The above Results were Read Back by Huy Bates MD to Gladys Ayala and understanding confirmed on 06/16/2021 09:57:24 (ET). Electronically Signed: Huy Bates MD at 9:59 EDT , Head/Neck CTA 06/16/21 09:46 IMPRESSION: Small right vertebral artery. Atherosclerotic plaque calcification at the origin of both the right and left internal carotid arteries causing less than 50% stenosis. N.B. : The above Results were Read Back by Huy Bates MD to Gladys Ayala and understanding confirmed on 06/16/2021 10:50:54 (ET). Electronically Signed: Huy Bates MD at 10:52 EDT , ADDENDUM: 06/16/21 1058 IMPRESSION: Small right vertebral artery. Atherosclerotic plaque calcification at the origin of both the right and left internal carotid arteries causing less than 50% stenosis. N.B. : The above Results were Read Back by Huy Bates MD to Gladys Ayala and understanding confirmed on 06/16/2021 10:50:54 (ET). Electronically Signed: Huy Bates MD at 10:52 EDT , Chest X-Ray 06/16/21 10:20 IMPRESSION: Hyperinflation. Mild increased markings at the lung bases suggestive of linear atelectasis and/or scarring slightly more prominent on the right side. Electronically Signed: Huy Bates MD at 11:13 EDT , Assessment & Plan Assessment/Plan (1) Dysarthria: (2) Aphasia: (3) Fall: (4) Dizziness: PLAN: Dizziness/dysarthria/expressive aphasia -Patient with history of cryptogenic stroke in 2019 -Concerning for recurrent stroke -Continue home aspirin -Hold home antihypertensives and allow for permissive hypertension -Check hemoglobin A1c -Check lipid panel -Continue home atorvastatin -Check echocardiogram -Patient with loop recorder implanted and therefore MRI is contraindicated -We will repeat CT at 24 hours post presentation the emergency department -Consult to see neurology tomorrow--> question initiation of [place] -Suspect related to above dizziness -CT of the head without any subdural hematoma or scalp lesion/bony abnormality -PT/OT consultation Hypertension -Hold Norvasc -As needed medication with parameters in place -Allow for permissive hypertension given concern for stroke Hyperlipidemia -Continue atorvastatin -Check lipids History of stroke -Date of stroke was June 2019 -Deemed to be cryptogenic -Patient had loop recorder placement which is still in place -Nonsustained VT noted however no further intervention has been performed -Patient has followed with regards to the NSVT--> this was completely asymptomatic -It appears as if she was supposed to follow-up for stress test or some noninvasive testing for ischemia however I do not see any documentation that this was ever done -Continue aspirin History of nonsustained VT -Outpatient follow-up with cardiology as it appears she may have been lost to follow-up -No current issues and patient appears to be asymptomatic however dizziness episode could potentially related to cardiac arrhythmia Obstructive sleep apnea -CPAP with 9 cm water ordered for at bedtime -Does not sound like patient is compliant with this at home CKD stage IIIb -Serum creatinine is stable -Baseline serum creatinine appears to be 1.3-1.6 -Avoid nephrotoxins as able Anxiety -Continue clonazepam 2 mg daily DVT prophylaxis -Heparin twice daily -SCDs CODE STATUS -Full code as per discussion with patient and in the emergency department on admission Charges/Coding Visit Charges Inpatient E&M: 08531 Init Hosp L3
[2021-06-16 12:17] LABS: Thyroid Stim Hormone (TSH) 0.75 uIU/mL (0.358-3.74)
--- NOTE | 2021-06-16 12:21 | CM.ED ---
RN CM Assessment Introduced role of RN CM to patient and patient Stanford at bedside.? Patient is alert, oriented and able?to participate in RN CM Assessment. ?Care providers, pharmacy, and demographics verified. Admit Dx: IP for Aphasia and Dysarthria Re-Admit: No Barriers/Issues: None PCP: Erna Encarnacion and Biju Maciel (thinking of switching permanently to Dr Maciel) Specialists: Scheduled in June to see Dr Ross for the first time [facility] Insurance: [facility] A/B, AARP Rx Benefit:?Yes LNOK: Stanford Ferrara LW/HPOA: None, AD information with SW rack card provided. Aware can complete as an inpatient or outpatient Living Arrangements:?Lives with in a H with 1 step to enter home ADL?s: Independent with Ambulation, ADLs/IADLs except assists with medication management. Transportation: DME: CPAP HHC: None SNF: None Goal: Home and okay with HH if recommended. HH and SNF list provided to look over. Aware RNCM will continue to follow should any needs arise. DC PLAN: Home and f/u mobility for possible HH. ADRIANNA Lee
[2021-06-16 13:48] LABS: Hemoglobin A1c 5.6 % (3.8-5.6)
[2021-06-16] MEDS: Cholecalciferol (VIT D3) 25 MCG TABLET (1,000 UNITS) PO (16:30)
[2021-06-16] MEDS: Atorvastatin Calcium 40 MG Tablet PO (20:45)
[2021-06-16] MEDS: Sertraline 50 MG Tablet PO (20:45)
[2021-06-16] MEDS: Heparin Injection (Vial) 5,000 UNIT/ML VIAL 5000 UNIT SC (20:46)
[2021-06-17] VITALS (9 sets, daily range): BP systolic 117–156; BP diastolic 54–98; PULSE 75–111; RESP 16–18; TEMP 36.4–37.2; O2SAT 95–97; BMI 25.9
[2021-06-17 07:15] LABS: Absolute Lymphocyte Count 2.34 X10^3/uL (0.83-4.51); Absolute Neutrophil Count 7.7 X10^3/uL (2.0-7.7); Basophil# 0.05 X10^3/uL; Basophil% 0.4 % (0-1); Eosinophil# 0.18 X10^3/uL; Eosinophils% 1.6 % (0-5); Hematocrit 40.3 % (37-47); Hemoglobin 13.3 g/dL (12.0-15.0); Lymphocyte # 2.34 X10^3/ul (0.83-4.51); Mean Corpuscular Hgb 29.5 pg (27.0-32.0); Mean Corpuscular Volume 89.4 fL (81-99); Mean Platelet Vol. 12.7 fl (6.2-12.0); Monocyte# 0.89 X10^3/uL; NRBC Flagged by Analyzer 0 % (0-5); Neutrophil # 7.66 X10^3/uL (2.7-7.7); Neutrophil % 68.7 % (47-70); Platelet Count 183 K/mm3 (150-450); RBC Distribution Width CV 12.2 % (11.6-14.6); RBC Distribution Width SD 40.1 fl (35.1-43.9); Red Blood Count 4.51 M/mm3 (4.2-5.4); White Blood Count 11.2 K/mm3 (4.4-11.0)
--- NOTE | 2021-06-17 07:48 | TELEMED_ITS ---
[facility] Telemed has confirmed receipt of a request for visit. This document confirms receipt of the order initiating the consult. To find the results of the consultation, please view the patient's reports for the scanned Telemed Consult.
[2021-06-17 07:53] LABS: ALB/GLOB Ratio 1.2 RATIO (0.9-2.4); AST(SGOT) 33 U/L (15-37); Alanine Aminotransfer ALT/SGPT 35 U/L (13-56); Alkaline Phosphatase 90 U/L (45-117); Anion Gap 7 (5-15); BUN 21 mg/dL (7-18); BUN/Creat Ratio 14.4 RATIO (10-20); Calcium,Total 9.1 mg/dL (8.5-10.1); Chloride 111 mmol/L (98-107); Cholesterol 173 mg/dL (200); Creatinine, Serum 1.46 mg/dL (0.55-1.02); EST Glomerular Filtration Rate 37 mL/min (>60); Est Glom Filt Rate - Afr Amer 45 mL/min (>60); Estimated Creatinine Clearance 31.88 ml/min; Globulin 3.2 g/dL (2.2-4.2); Glucose 126 mg/dL (74-106); High Density Lipoprotein 48 mg/dL; Magnesium 2.3 mg/dL (1.6-2.6); Potassium 3.7 mmol/L (3.5-5.1); Protein, Total 7.2 g/dL (6.4-8.2); Sodium Level 141 mmol/L (136-145); Triglycerides 107 mg/dL; Very Low Density Lipoprotein 21 mg/dL (5-40)
[2021-06-17] MEDS: Cholecalciferol (VIT D3) 25 MCG TABLET (1,000 UNITS) PO ×2 (09:05→16:20)
[2021-06-17] MEDS: Aspirin 81 MG TAB.CHEW PO (09:06)
[2021-06-17] MEDS: Heparin Injection (Vial) 5,000 UNIT/ML VIAL 5000 UNIT SC (09:06)
--- NOTE | 2021-06-17 09:30 | MRI_ITS ---
STUDY: MRI BRAIN WITHOUT CONTRAST REASON FOR EXAM: Female, 76 years old. stroke, passed out, slurred speech TECHNIQUE: Standardized multiplanar fat and water weighted pulse sequences were obtained. COMPARISON: Head CT dated June 16, 2021 FINDINGS: A cluster of small to moderate size acute infarcts are present at the anterior inferior aspect of the right cerebellar lobe. No additional acute infarcts are present in the posterior fossa or supratentorial regions of the brain. Normal remaining aspects of the cerebellum. There is moderate cerebral atrophy with widening of the extra-axial spaces and ventricular dilatation. There are a limited number of small white matter hyperintensities, distributed throughout the deep white matter tracts of the cerebral hemispheres, consistent with mild chronic white matter ischemic changes. Normal T2* images of the brain without demonstrated susceptibility artifact. There is no demonstrated hemosiderin stain. Normal bilateral basal ganglia. Normal thalami. There is no extra-axial fluid accumulation. Normal flow voids within the major intracranial circulation suggesting patency by spin echo criteria. Normal sella turcica, pituitary gland, infundibular stalk, optic chiasm and hypothalamus. Normal tectal plate and pineal gland. Normal midbrain, libia and medulla. Normal basal cisterns. Normal bilateral temporal bones. Normal bilateral internal auditory canals. No demonstrated orbital abnormality, within the constraints of a routine brain study. Normal visualized paranasal sinuses. Normal calvarium and skull base. Small smooth nodule in the subcutaneous fat in the scalp tissues in the posterior midline aspect overlying the occipital bone. Normal visualized upper cervical spine. MRI/Brain without Contrast IMPRESSION: 1. A cluster of small to moderate size acute infarcts are present at the anterior inferior aspect of the right cerebellar lobe. No additional acute infarcts are present in the posterior fossa or supratentorial regions of the brain. N.B. : The above Results were Read Back by Fabio Fuentes MD to Cassie Smith RN, and understanding confirmed on 06/17/2021 13:05:36 (ET). Electronically Signed: Fabio Fuentes MD at 13:06 EDT ,
--- NOTE | 2021-06-17 10:20 | PCM.DC.SUM ---
Providers Date of Admission: 06/16/21 Date of Discharge: 06/17/21 Primary Care Physician: Dr. Erna Encarnacion MD Reason For Visit: APHASIA AND DYSARTHRIA Diagnosis Discharge Diagnosis (1) Dysarthria: Status: Acute Code(s): R47.1 - Dysarthria and anarthria (2) Aphasia: Status: Acute Code(s): R47.01 - Aphasia (3) Fall: Status: Acute Code(s): W19.XXXA - Unspecified fall, initial encounter (4) Dizziness: Status: Acute Code(s): R42 - Dizziness and giddiness Medications at Discharge Home Medications cholecalciferol (vitamin D3) 1,000 unit PO BID 08/29/16 atorvastatin 40 mg tablet 40 mg PO QHS 11/01/19 Nuedexta 1 cap PO Q12H 06/16/21 amlodipine 5 mg PO DAILY 06/16/21 aspirin 81 mg PO DAILY 06/16/21 sertraline 50 mg PO QHS 06/16/21 clopidogrel [Plavix] 75 mg PO DAILY #30 tab 06/17/21 Hospital Course Operations None Procedures - (CTA head neck/MRI brain) Summary of Care Provided Minutes Spent on Discharge: 39 Hospital Course: Mrs. Ferrara is a 76-year-old white female who presented to the emergency department [facility] on 06/16/2021 secondary to dizziness, dysarthria, and expressive aphasia. Evidently the patient woke up on the morning of admission had to go to the bathroom. Her helped her up and she got dizzy and fell backwards and hit her head. Her then noted shortly after that her speech was somewhat garbled and she appeared to have word finding difficulty. When I asked her to describe her dizziness she stated that the world was spinning. She also had experienced some intermittent associated nausea but no significant emesis. A stroke team was called and she was evaluated by [facility] stroke neurologist. Her NIH was found to be 2 on presentation and improved to 1 at the time of admission. No TPA was recommended but they did recommend admission for stroke work-up. The patient does have a history of stroke remotely. She presented to the emergency department here in June 2019 with facial droop and dysarthria per documentation. She was eval awaited by the [facility] stroke team at that time and was given TPA and transferred to [facility]. She underwent stroke work-up there and the stroke was deemed to be cryptogenic. She was placed on an aspirin and an event monitor was ordered. Her event monitor was performed and showed some episodes of nonsustained VT and therefore and implantable loop recorder was placed at [facility]. We initially thought that an MRI would be unable to be performed secondary to loop recorder implantation but this is compatible with an MRI and an MRI was ordered and performed. In the emergency department her vital signs were overall unremarkable and her labs were unimpressive. A CT of her head was performed given her fall and stroke team being called and showed only chronic involutional changes as well as a stable 1.2 hypodense area in the anterior left cerebellar hemisphere compatible with prior ischemic insult. A CTA of her head and neck was performed and showed only a small right vertebral artery, atherosclerotic disease at the origin of the both right and left internal carotid arteries that was less than 50% stenosis. Her chest x-ray was unimpressive and her EKG showed normal sinus rhythm with no ST-T wave changes consistent with ischemia and no ectopy. She was admitted to the PCU and monitored on telemetry. She had no abnormal telemetry events during her hospitalization. An MRI was performed and showed a cluster of small to moderate size acute infarcts in the anterior and inferior aspect of the right cerebellar lobe with no additional acute infarcts. An echocardiogram was performed and showed an ejection fraction of 65% with normal diastolic function, mild mitral valve insufficiency, mild aortic valve insufficiency and a small to moderate pericardial effusion that was present previously from June 2019. She was then evaluated by telestroke neurology and their recommendations were to continue her statin, continue her aspirin for 21 days, add Plavix with a load of 300 mg prior to discharge, interrogate loop recorder, and follow-up with cardiology. We are unfortunately unable to interrogate her loop recorder here and she will have to do that as an outpatient per discussion with PCU. She was loaded with 300 mg of Plavix and a prescription for 30-day supply with a 1 month refill was given with instructions to continue dual antiplatelet therapy for 21 days and then discontinue her aspirin after the 21 days. She was seen by physical, occupational, and speech therapy and their recommendations were for acute inpatient rehab as she was very unstable and ataxic with ambulation even with a walker. Both she and her were adamant on not going to acute rehab and insisting they would go home and go to outpatient rehab. I did have an extensive discussion with the patient stating that her risk for fall is extremely high and I felt that it was dangerous for her to go home but she was persistent and demanded on going home versus being admitted to inpatient rehab for further physical, occupational, and speech therapy. An order was placed for outpatient physical/occupational/speech therapy services at discharge. We have recommended she follow-up with Dr. Silvestre from neurology within the next month, follow-up with Dr. Dove's it appears she was lost to follow-up after her previous stroke as soon as possible, and follow-up with her primary care physician within the next week. Discharge diagnoses: Acute right cerebellar stroke Fall Hypertension Hyperlipidemia History of stroke History of nonsustained VT History of obstructive sleep apnea CKD stage IIIb Mild carotid artery stenosis bilaterally-less than 50% Anxiety Physical Exam Const alert, oriented x3 and no apparent distress Constitutional Narrative: Overweight older white female sitting up in a chair at the bedside, patient is watching television and appears comfortable, speech is still somewhat garbled however improved in the last 24 hours. No apparent word finding issues at this time General Appearance: cooperative, comfortable, well kempt and well developed Exam Limitations: no limitations HEENT normocephalic, head/scalp atraumatic, hearing grossly normal bilaterally and moist oral mucous membranes HEENT Narrative: Dentition is poor with multiple missing and poorly cared for teeth, Mallampati is 2, no thrush Eyes PERRL, EOMs intact bilaterally and conjunctivae normal Eyes Narrative: No scleral icterus Neck no lymphadenopathy, supple, no JVD and no carotid bruits Neck Narrative: Trachea midline without any thyroid enlargement Resp normal respiratory effort, no retractions, no use of accessory muscles and clear to auscultation bilaterally Auscultation: Negative for crackles, rales, rhonchi or wheezes Cardio regular rate, regular rhythm, S1 normal heart sound, S2 normal heart sound, no murmurs, no rub, no gallops, no clicks and no JVD GI normal to inspection, nondistended, normoactive bowel sounds, soft to palpation, non-tender and non-distended; Negative for hepatosplenomegaly Extremity no clubbing, cyanosis or edema Skin no rashes or lesions noted, no wounds, skin turgor normal, no jaundice and no mottling Neuro oriented x3, moves all extremities and no focal motor deficits Neuro Narrative: Dysarthria and garbled speech but otherwise cranial nerves are within normal limits, reflexes are 2+ bilateral upper and lower extremities Sensorium / Orientation: awake and alert Motor Exam: strength 5/5 throughout Psych affect normal Psych Narrative: Very pleasant Weight / BMI Weight Weight: 75 kg Body Mass Index (BMI) 25.9 ABG / Lab / Microbiology Data Result Diagrams: 06/17/21 06:24 06/17/21 06:24 Laboratory: Laboratory Results - last 24 hr 06/16/21 09:55: PT 14.2, INR 1.2, APTT 38.2 H 06/16/21 09:55: Sodium 138, Potassium 4.0, Chloride 111 H, Carbon Dioxide 22.0, Anion Gap 5, BUN 22 H, Creatinine 1.37 H, Estim Creat Clear Calc 31.44, Est GFR (MDRD) Af Amer 48 L, Est GFR (MDRD) Non-Af 40 L, BUN/Creatinine Ratio 16.1, Glucose 132 H, Calcium 8.5, Troponin I High Sens 33 06/16/21 09:55: TSH 0.75 06/16/21 09:55: Hemoglobin A1c 5.6 06/17/21 06:24: WBC 11.2 H, RBC 4.51, Hgb 13.3, Hct 40.3, MCV 89.4, MCH 29.5, MCHC 33.0, RDW Std Deviation 40.1, RDW Coeff of Joy 12.2, Plt Count 183, MPV 12.7 H, Immature Gran % (Auto) 0.300, Neut % (Auto) 68.7, Lymph % (Auto) 21.0, Canadian % (Auto) 8.0, Eos % (Auto) 1.6, Baso % (Auto) 0.4, Absolute Neuts (auto) 7.7, Absolute Lymphs (auto) 2.34, Nucleated RBC % 0 06/17/21 06:24: Sodium 141, Potassium 3.7, Chloride 111 H, Carbon Dioxide 23.0, Anion Gap 7, BUN 21 H, Creatinine 1.46 H, Estim Creat Clear Calc 31.88, Est GFR (MDRD) Af Amer 45 L, Est GFR (MDRD) Non-Af 37 L, BUN/Creatinine Ratio 14.4, Glucose 126 H, Calcium 9.1, Phosphorus 3.0, Magnesium 2.3, Total Bilirubin 1.20 H, AST 33, ALT 35, Alkaline Phosphatase 90, Total Protein 7.2, Albumin 4.0, Globulin 3.2, Albumin/Globulin Ratio 1.2, Triglycerides 107, Cholesterol 173, LDL Cholesterol 104, VLDL Cholesterol 21, HDL Cholesterol 48 Radiography Diagnostic Testing: Radiology Impression Brain CT 06/16/21 09:46 IMPRESSION: Chronic involutional changes of the brain. N.B. : The above Results were Read Back by Huy Bates MD to [facility] and understanding confirmed on 06/16/2021 09:57:24 (ET). Electronically Signed: Huy Bates MD at 9:59 EDT Reading Location ID and State: [address] [place] [address] , Service support , Head/Neck CTA 06/16/21 09:46 IMPRESSION: Small right vertebral artery. Atherosclerotic plaque calcification at the origin of both the right and left internal carotid arteries causing less than 50% stenosis. N.B. : The above Results were Read Back by Huy Bates MD to Gladys Ayala and understanding confirmed on 06/16/2021 10:50:54 (ET). Electronically Signed: Huy Bates MD at 10:52 EDT Reading Location ID and State: [facility] / [place] , Service support , ADDENDUM: 06/16/21 1058 IMPRESSION: Small right vertebral artery. Atherosclerotic plaque calcification at the origin of both the right and left internal carotid arteries causing less than 50% stenosis. N.B. : The above Results were Read Back by Huy Bates MD to [facility] and understanding confirmed on 06/16/2021 10:50:54 (ET). Electronically Signed: Huy Bates MD at 10:52 EDT , Chest X-Ray 06/16/21 10:20 IMPRESSION: Hyperinflation. Mild increased markings at the lung bases suggestive of linear atelectasis and/or scarring slightly more prominent on the right side. Electronically Signed: Huy Bates MD at 11:13 EDT , D/C Instructions Discharge Diet: Low fat / Low cholesterol Discharge Activity: Return to Normal Activity Meaningful Use Info Meaningful Use Diagnoses (Choose all that apply): Ischemic CVA CVA Therapy Assessed for PT,OT and/or ST?: Yes Ischemic Stroke Antithrombotic order at d/c?: Yes Dx of Atrial fib/flutter?: No Anticoagulant at discharge?: No Reason anticoagulant not ordered: Treatment not Indicated Statins at discharge?: Yes Primary Dx Acute Ischemic CVA?: Yes IV tPA ordered during stay?: No Reason IV t-PA not ordered: Treatment not Indicated Discharge Plan Admission Admit Date/Time: 06/16/21 11:28 Primary Reason for Your Visit: Expressive aphasia and dysarthria Attending Provider: rBenda Lucas Primary Care Provider: Erna Encarnacion Instructions Additional Instructions / Restrictions: 1. Aspirin and Plavix for 3 weeks and then STOP the Aspirin and continue your Plavix 2. Please follow-up with cardiology as directed to have your loop recorder interrogated and for further work-up--> call tomorrow to make appt for as soon as possible (see number below) 3. Please call tomorrow for neurology appointment to be made within the next month if opening available (see number below 4. Please follow up with physical/occupational and speech therapy at [facility] Discharge Orders/Prescriptions Prescriptions: New clopidogrel [Plavix] 75 mg tablet 75 mg PO DAILY Qty: 30 RF: 1 Continued cholecalciferol (vitamin D3) 1,000 UNIT capsule 1,000 unit PO BID RF: 0 amlodipine 5 mg tablet 5 mg PO DAILY RF: 0 aspirin 81 mg Tablet 81 mg PO DAILY RF: 0 Nuedexta 20-10 mg Capsule 1 cap PO Q12H RF: 0 sertraline 100 mg tablet 50 mg PO QHS RF: 0 atorvastatin 40 mg tablet 40 mg PO QHS RF: 0 Discontinued clonazepam 0.5 MG tablet 2 mg PO DAILY RF: 0 Referrals / Follow Up: Erna Encarnacion MD [Primary Care Provider] - Within 1 Week Manuelito Dove MD [STAFF PHYSICIAN] - Within 1 Month Ming Silvestre MD [NON-STAFF] - Within 1 Month (stroke) Disposition Disposition (needs filled in before D/C Order can be placed): Home, Self Care Charges/Coding Visit Charges Inpatient E&M: 65641 Disch Hosp
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
--- NOTE | 2021-06-17 13:20 | CASEMGMT ---
Addendum entered by Chloe Gee 06/17/21 13:49: Social Work Second phone call placed to pt Stanford to reiterate concerns Dr. Lucas and therapists have with pt safety upon return home as she is so unsteady. Stanford states he spoke to pt on the phone and they agreed pt wants to come home. SW requested Stanford come to hospital and observe pt walking prior to discharge. Stanford agreeable and asks for phone call when pt is discharged. SW did reinforce that if pt and spouse change mind about returning home once Stanford sees pt walk, RU can be reconsidered. RN updated on above. TEMO Whitley Original Note: Social Work Therapy is recommending continued PT/OT/ST in the Inpatient Rehab setting. REINA met with pt and discussed discharge plan and presented idea of RU. Pt denies need for this and states she will return home with exercises. SW reiterated safety concerns and need for therapy to regain strength and functionality along with speech concerns. Pt continues to deny need for RU. With pt permission, phone call placed to pt spouse and explained recommendations. Pt Stanford stating that pt would not want to stay in the hospital but he would like for her to get outpatient therapy at [facility]. Stanford states he will be able to provide [address] Lucas updated on pt and spouses decision. TEMO Whitley
[2021-06-17] MEDS: Clopidogrel Bisulfate 300 MG Tablet PO (17:01)
--- NOTE | 2021-06-17 17:53 | NURSING ---
Reviewed charting with Madyson Villalobos RN
== END 2021-06-17 17:49 | disposition home or self-care (01) | DRG 56 ==
LOC: ED 11:32 → PCU 11:43
PROVIDERS: Admitting Provider Internal Medicine; Emergency Provider Emergency Medicine; PCP Internal Medicine; Visit Provider Internal Medicine
DX: I69.322 Dysarthria following cerebral infarction (principal); I63.233 Cerebral infarction due to unspecified occlusion or stenosis of bilateral carotid arteries; I47.2 Ventricular tachycardia; R47.01 Aphasia; I67.2 Cerebral atherosclerosis; N18.32 Chronic kidney disease, stage 3b; I12.9 Hypertensive chronic kidney disease with stage 1 through stage 4 chronic kidney disease, or unspecified chronic kidney disease; E78.5 Hyperlipidemia, unspecified; G47.33 Obstructive sleep apnea (adult) (pediatric); F41.9 Anxiety disorder, unspecified; I08.0 Rheumatic disorders of both mitral and aortic valves; W19.XXXA Unspecified fall, initial encounter; R29.702 NIHSS score 2; Z79.82 Long term (current) use of aspirin; Z99.89 Dependence on other enabling machines and devices
CPT/HCPCS: 36415; 70450; 70496; 70498; 70551; 71045; 80048; 80053; 80061; 83036; 83735; 84100; 84443; 84484; 85025; 85610; 85730; 92507; 92523; 92610; 93005; 93306; 94762; 97162; 97166; 99251; 99285; Q9967; A4216; G0463

== ENCOUNTER 2021-11-12 07:26 | Emergency (ER) | payer MEDICARE, OTHER, SELFPAY ==
[2021-11-12 07:27] VITALS: BP 119/70; PULSE 80; RESP 18; TEMP 36.6; O2SAT 98; BMI 24.6
[2021-11-12 07:30] VITALS: BP 119/70; PULSE 80; RESP 18; TEMP 36.6; O2SAT 98
--- NOTE | 2021-11-12 07:52 | CT_ITS ---
STUDY: CT ABDOMEN AND PELVIS WITH CONTRAST REASON FOR EXAM: Female, 76 years old. Confusion. Nausea and diarrhea. RADIATION DOSAGE (If Supplied By Facility): CTDIvol = ( 8.76 ) mGy, DLP = ( 400.03 ) mGycm TECHNIQUE: Transaxial images were obtained from the dome of the diaphragm to the symphysis pubis without oral contrast. IV 100mL Isovue-300 was administered. Sagittal and coronal images were reconstructed. Individualized dose optimization techniques were used for this CT. COMPARISON: Comparison is made with prior study dated 09/02/2016. FINDINGS: Increased linear markings are seen in the right lower lobe as well as in the posterior medial aspect of the left lower lobe suggestive of a scarring and/or atelectasis. Minimal degree of the pericardial thickening. Mild degree of intrahepatic biliary ductal dilatation. PICC 3. The common bile duct is dilated down to the level of the ampulla of VATER. This measures 9.7 mm in greatest transverse dimension. There is mild splenomegaly. Several small hypodense nodules are seen scattered throughout the spleen. Normal pancreas. Normal bilateral adrenal glands. There is a 3 mm nonobstructive calculus in the lower pole calyx of the right kidney. There is a 1.6 cm cyst in the medial midportion of the right kidney. Normal left kidney. There is a small hiatal hernia. Fluid is seen within nondilated small bowel loops. The patient is status post right hemicolectomy. There is thickening of the sigmoid colon with scattered sigmoid diverticula. Mild degree of early diverticulitis should be There is non-visualization of the appendix. There is scattered atherosclerotic calcification of the abdominal aorta, without a demonstrated aneurysm. Normal inferior vena cava. Normal retroperitoneum. Normal urinary bladder. There is absence of the uterus consistent with a prior hysterectomy. Normal abdominal wall. There are degenerative changes of the visualized lumbar spine. Grade 1 anterolisthesis of L4 on L5 most likely secondary to the facet joint osteoarthritis. CT/Abdomen/Pelvis W IV Cont ONLY IMPRESSION: Thickening of the wall of the sigmoid colon with scattered diverticula suggesting a mild degree of diverticulitis. Status post right hemicolectomy. Splenomegaly and several small hypodense nodules within the spleen. The patient is status post cholecystectomy. Electronically Signed: Huy Bates MD at 9:07 EDT ,
--- NOTE | 2021-11-12 07:54 | EDS_ITS ---
HPI HPI - GI History of Present Illness Chief Complaint: Nausea/Vomiting/Diarrhea Narrative Narrative: 76-year-old female presenting with diarrhea. She states that she started having diarrhea at about 5 AM. She does have some chronic diarrhea but she and her hu kieraand state they have never seen this amount of diarrhea since 5 AM. She has some intermittent left lower quadrant abdominal pain. She does admit to a history of diverticulitis and a history of tubulovillous adenoma of the colon. The patient notes that she does not have any nausea. She has not had a fever or chills. Denies body aches. The patient's states that this morning after midnight she seemed a little confused. She had some questions about the time that she was in. He started drawing a clock to try to determine what time it was. The patient's states he pointed to the digital clock and she said oh. He does admit that she has had some mental decline since her previous stroke. She states that at times she cannot remember anything. She did not have facial droop, slurred speech, inability to move her extremities. Her does note that after having so much diarrhea she felt very weak and was hard to get back into the bed. Patient denies recent antibiotic use. She denies atypical foods. She denies a history of C. difficile. She has no known sick contacts. [facility] Medical History Allergic rhinitis Anxiety Asthma CKD (chronic kidney disease) stage 3, GFR 30-59 ml/min CVA (cerebral vascular accident) CVA (cerebral vascular accident) Dysarthria Dysthymia Essential (primary) hypertension Fall Hyperlipidemia NSVT (nonsustained ventricular tachycardia) Occult blood in stools SABRINA (obstructive sleep apnea) Osteopenia Parasomnia Recurrent major depressive disorder, in full remission Status post placement of implantable loop recorder (~09/18/19) Tubulovillous adenoma of colon Vitamin D deficiency Home Medications cholecalciferol (vitamin D3) 25 mcg (1,000 unit) capsule 1,000 unit PO BID supplement 08/29/16 [History Last Taken 06/16/21] atorvastatin 40 mg tablet 40 mg PO QHS cholesterol 11/01/19 [History Last Taken 06/15/21] amlodipine 5 mg tablet 5 mg PO DAILY BP 06/16/21 [History Last Taken 06/16/21] clopidogrel 75 mg tablet (Plavix) 75 mg PO DAILY #30 tabs 06/17/21 [Rx Last Taken Unknown] amoxicillin 875 mg-potassium clavulanate 125 mg tablet 1 tab PO BID #24 tabs 11/12/21 [Rx Last Taken Unknown] clonazepam 0.5 mg tablet 1.5 mg PO QHS 11/12/21 [History Last Taken Unknown] Allergy/AdvReac Type Severity Reaction Status Date / Time No Known Allergies Allergy Verified 11/12/21 07:31 Family History Mother Emphysema lung Brother Cancer Kidney Stomach ulcer Father Cancer Bladder Aunt CVA (cerebral vascular accident) Surgical History History of cholecystectomy History of hysterectomy Social History household members: spouse housing: house Smoking Status: Never smoker second hand exposure: Yes alcohol intake: never substance use type: does not use caffeine: No what type of physical activity do you participate in: none ROS ROS ED Constitutional Constitutional ED: Denies chills or fever(s) ENT ENT ED: Denies rhinorrhea or sore throat Cardiovascular Cardiovascular: Denies chest pain or palpitations Respiratory/Chest Respiratory/Chest: Denies cough or dyspnea Gastrointestinal Gastrointestinal: Reports abdominal pain and diarrhea Genitourinary Genitourinary ED: Denies dysuria or hematuria Musculoskeletal Musculoskeletal: Denies arthralgias or back pain Integumentary Denies abscess Neurologic Neurologic: Denies headache(s) or paresthesias Psychiatric Psychiatric: Denies anxiety or depression EXAM Physical Exam Const Vital Signs: 11/12/21 07:27 11/12/21 07:30 Temperature 98 F 98 F Temperature Source Oral Oral Pulse Rate 80 80 Respiratory Rate 18 18 Blood Pressure 119/70 119/70 Blood Pressure Mean 86 86 Pulse Ox 98 98 Oxygen Delivery Method Room Air Room Air Positive well nourished General Appearance ED: NAD; Negative for pallor HEENT Reports TM's clear and moist mucous membranes normocephalic Tympanic Membrane ED: Yes TM's clear Eyes PERRL and EOMs intact bilaterally General Eye ED: Negative for pale conjunctiva or scleral icterus Resp normal respiratory effort and clear to auscultation bilaterally Auscultation: Negative for rales, rhonchi or wheezes Cardio regular rate and regular rhythm GI Palpation: tender LLQ Back/Spine no CVA tenderness Neuro CN's II-XII intact bilaterally Sensorium / Orientation: alert, oriented to person, oriented to place and oriented to time Motor Exam: general weakness Psych mental status grossly normal and thought process normal Mood & Affect: Negative for depressed or anxious Skin no wounds General Skin Exam: Negative for jaundice or pallor MDM MDM MDM Narrative Medical decision making narrative: Patient presenting with worsening diarrhea. This is a chronic issue. There was concern that she has some chronic cognitive issues but nothing to suggest acute stroke. Patient is alert and awake and talking to me in the room. She does not have any focal neurologic deficits or lateralizing signs or symptoms. Vital signs are completely normal. I obtained lab work and she is a slight leukocytosis of 11.1. Hemoglobin hematocrit are stable. Creatinine 1.45 and at baseline. Total bilirubin slightly elevated 1.4 and this is 1.[address] of the on pelvis IV contrast shows a mild degree of diverticulitis. Given the patient's essentially normal I feel she is a good candidate for outpatient antibiotic therapy. She will be started Augmentin with the first dose here. She is given return precautions. She states she is followed up with Dr. Braun before for this and will do so if needed. Impression: 1. Diarrhea 2. Acute diverticulitis 3. Generalized Lab Data Attestation: I reviewed the patient's lab results. Labs: Laboratory Results - last 24 hr 11/12/21 11/12/21 07:31 07:31 WBC 11.1 H RBC 4.36 Hgb 13.1 Hct 39.5 MCV 90.6 MCH 30.0 MCHC 33.2 RDW Std Deviation 40.9 RDW Coeff of Joy 12.3 Plt Count 165 MPV 12.9 H Immature Gran % (Auto) 0.500 Neut % (Auto) 86.4 H Lymph % (Auto) 6.3 L Cooke % (Auto) 5.6 Eos % (Auto) 1.0 Baso % (Auto) 0.2 Absolute Neuts (auto) 9.6 H Absolute Lymphs (auto) 0.70 L Nucleated RBC % 0 Sodium 142 Potassium 3.8 Chloride 112 H Carbon Dioxide 22.0 Anion Gap 8 BUN 11 Creatinine 1.45 H Estim Creat Clear Calc 30.90 Est GFR (MDRD) Af Amer 45 L Est GFR (MDRD) Non-Af 37 L BUN/Creatinine Ratio 7.6 L Glucose 125 H Calcium 9.2 Total Bilirubin 1.40 H AST 24 ALT 24 Alkaline Phosphatase 81 Total Protein 7.2 Albumin 3.9 Globulin 3.3 Albumin/Globulin Ratio 1.2 Lipase 65 L Radiography Diagnostic Testing: Clinical Impression(s) from Imaging Studies Abdomen/Pelvis CT 11/12/21 07:52 IMPRESSION: Thickening of the wall of the sigmoid colon with scattered diverticula suggesting a mild degree of diverticulitis. Status post right hemicolectomy. Splenomegaly and several small hypodense nodules within the spleen. The patient is status post cholecystectomy. Electronically Signed: Huy Bates MD at 9:07 EDT , Discharge Plan Triage Chief Complaint: Nausea/Vomiting/Diarrhea ED Provider: Elías Lozano Dx/Rx/DC Orders Instructions: ED Diverticulitis Prescriptions: New amoxicillin-pot clavulanate 875-125 mg tablet 1 tab PO BID Qty: 24 0RF No Action cholecalciferol (vitamin D3) 1,000 UNIT capsule 1,000 unit PO BID amlodipine 5 mg tablet 5 mg PO DAILY Label Comments: TAKE 1 TABLET BY MOUTH ONCE DAILY clopidogrel [Plavix] 75 mg tablet 75 mg PO DAILY Qty: 30 1RF clonazepam 0.5 mg tablet 1.5 mg PO QHS Label Comments: TAKE 3 TABLETS BY MOUTH ONCE DAILY AT BEDTIME atorvastatin 40 mg tablet 40 mg PO QHS Primary Care Provider: Erna Encarnacion Referrals: Erna Encarnacion MD [Primary Care Provider] - Silvano Braun MD [Non-Staff] - 3-5 Days Disposition Disposition: Home, Self Care
[2021-11-12] MEDS: 0.9% Normal Saline 1,000 ML 1000 ML IV (08:01)
[2021-11-12 08:02] LABS: Absolute Neutrophil Count 9.6 X10^3/uL (2.0-7.7); Basophil# 0.02 X10^3/uL; Basophil% 0.2 % (0-1); Eosinophil# 0.11 X10^3/uL; Hematocrit 39.5 % (37-47); Hemoglobin 13.1 g/dL (12.0-15.0); Lymphocyte % 6.3 % (19-41); Mean Corp Hgb Conc 33.2 g/dL (32-36); Mean Corpuscular Volume 90.6 fL (81-99); Mean Platelet Vol. 12.9 fl (6.2-12.0); Monocyte# 0.62 X10^3/uL; Monocyte% 5.6 % (0-10); NRBC Flagged by Analyzer 0 % (0-5); Neutrophil # 9.61 X10^3/uL (2.7-7.7); Neutrophil % 86.4 % (47-70); Platelet Count 165 K/mm3 (150-450); RBC Distribution Width CV 12.3 % (11.6-14.6); RBC Distribution Width SD 40.9 fl (35.1-43.9); Red Blood Count 4.36 M/mm3 (4.2-5.4); White Blood Count 11.1 K/mm3 (4.4-11.0)
[2021-11-12 08:18] LABS: ALB/GLOB Ratio 1.2 RATIO (0.9-2.4); AST(SGOT) 24 U/L (15-37); Alanine Aminotransfer ALT/SGPT 24 U/L (13-56); Albumin, Serum 3.9 g/dL (3.2-5.0); Alkaline Phosphatase 81 U/L (45-117); Anion Gap 8 (5-15); BUN 11 mg/dL (7-18); BUN/Creat Ratio 7.6 RATIO (10-20); Calcium,Total 9.2 mg/dL (8.5-10.1); Chloride 112 mmol/L (98-107); Creatinine, Serum 1.45 mg/dL (0.55-1.02); EST Glomerular Filtration Rate 37 mL/min (>60); Est Glom Filt Rate - Afr Amer 45 mL/min (>60); Globulin 3.3 g/dL (2.2-4.2); Glucose 125 mg/dL (74-106); Lipase 65 U/L (73-393); Potassium 3.8 mmol/L (3.5-5.1); Protein, Total 7.2 g/dL (6.4-8.2); Sodium Level 142 mmol/L (136-145)
[2021-11-12] MEDS: Amox/Clavulanate 875 MG Tablet PO (11:10)
[2021-11-12 11:16] VITALS: BP 124/55; PULSE 82; RESP 18; O2SAT 98
== END 2021-11-12 11:17 | disposition home or self-care (01) ==
PROVIDERS: Emergency Provider Student in an Organized Health Care Education/Training Program; PCP Internal Medicine; Visit Provider Student in an Organized Health Care Education/Training Program
DX: K57.92 Diverticulitis of intestine, part unspecified, without perforation or abscess without bleeding (principal); N18.30 Chronic kidney disease, stage 3 unspecified; E78.5 Hyperlipidemia, unspecified; I12.9 Hypertensive chronic kidney disease with stage 1 through stage 4 chronic kidney disease, or unspecified chronic kidney disease; R19.7 Diarrhea, unspecified; Z86.73 Personal history of transient ischemic attack (TIA), and cerebral infarction without residual deficits; G47.33 Obstructive sleep apnea (adult) (pediatric)
CPT/HCPCS: 74177; 80053; 83690; 85025; 87811; 96360; 99282; J7030; Q9967; A4216

== ENCOUNTER 2021-11-15 12:23 | Emergency (ER) | payer MEDICARE, OTHER, SELFPAY ==
[2021-11-15 12:23] VITALS: BP 124/70; PULSE 74; RESP 16; TEMP 36.3; O2SAT 97; BMI 24.2
[2021-11-15 14:44] LABS: Absolute Lymphocyte Count 1.13 X10^3/uL (0.83-4.51); Basophil# 0.02 X10^3/uL; Basophil% 0.3 % (0-1); Eosinophil# 0.16 X10^3/uL; Hematocrit 37.8 % (37-47); Hemoglobin 12.6 g/dL (12.0-15.0); Lymphocyte # 1.13 X10^3/ul (0.83-4.51); Lymphocyte % 14.3 % (19-41); Mean Corp Hgb Conc 33.3 g/dL (32-36); Mean Platelet Vol. 12.5 fl (6.2-12.0); Monocyte# 0.55 X10^3/uL; Monocyte% 6.9 % (0-10); NRBC Flagged by Analyzer 0 % (0-5); Neutrophil # 6.04 X10^3/uL (2.7-7.7); Neutrophil % 76.2 % (47-70); Platelet Count 162 K/mm3 (150-450); RBC Distribution Width CV 12.2 % (11.6-14.6); White Blood Count 7.9 K/mm3 (4.4-11.0)
[2021-11-15 14:52] LABS: Anion Gap 7 (5-15); BUN 12 mg/dL (7-18); BUN/Creat Ratio 9.4 RATIO (10-20); Calcium,Total 9.2 mg/dL (8.5-10.1); Chloride 112 mmol/L (98-107); Creatinine, Serum 1.27 mg/dL (0.55-1.02); EST Glomerular Filtration Rate 43 mL/min (>60); Est Glom Filt Rate - Afr Amer 53 mL/min (>60); Estimated Creatinine Clearance 35.28 ml/min; Glucose 75 mg/dL (74-106); Potassium 3.5 mmol/L (3.5-5.1); Sodium Level 141 mmol/L (136-145)
--- NOTE | 2021-11-15 17:26 | EX.ED.DYSGE1 ---
HPI History of Present Illness Chief Complaint: Nausea/Vomiting Informant: patient and spouse/S.O. Narrative Narrative: Patient here with referred in by PCP for evaluation. Seen 3 days ago for diarrhea acute onset with work-up found to have diverticulitis recurrent. She is placed on Augmentin. She is taking her medicines pain and diarrhea is improved. She is not eating stating no appetite. She denies nausea or vomiting. She tried eating toast today however did not want to eat it, spouse called PCP who referred her to the ED. She denies fevers. Denies urinary symptoms. She has followed Dr. Braun in the past. Prior similar symptoms: Yes PFSH PFSH Medical History Allergic rhinitis Anxiety Asthma CKD (chronic kidney disease) stage 3, GFR 30-59 ml/min CVA (cerebral vascular accident) CVA (cerebral vascular accident) Dysarthria Dysthymia Essential (primary) hypertension Fall Hyperlipidemia NSVT (nonsustained ventricular tachycardia) Occult blood in stools SABRINA (obstructive sleep apnea) Osteopenia Parasomnia Recurrent major depressive disorder, in full remission Status post placement of implantable loop recorder (~09/18/19) Tubulovillous adenoma of colon Vitamin D deficiency Home Medications cholecalciferol (vitamin D3) 25 mcg (1,000 unit) capsule 1,000 unit PO BID supplement 08/29/16 [History Last Taken 06/16/21] atorvastatin 40 mg tablet 40 mg PO QHS cholesterol 11/01/19 [History Last Taken 06/15/21] amlodipine 5 mg tablet 5 mg PO DAILY BP 06/16/21 [History Last Taken 06/16/21] clopidogrel 75 mg tablet (Plavix) 75 mg PO DAILY #30 tabs 06/17/21 [Rx Last Taken Unknown] amoxicillin 875 mg-potassium clavulanate 125 mg tablet 1 tab PO BID #24 tabs 11/12/21 [Rx Last Taken Unknown] clonazepam 0.5 mg tablet 1.5 mg PO QHS 11/12/21 [History Last Taken Unknown] Allergy/AdvReac Type Severity Reaction Status Date / Time No Known Allergies Allergy Verified 11/15/21 12:27 Family History Mother Emphysema lung Brother Cancer Kidney Stomach ulcer Father Cancer Bladder Aunt CVA (cerebral vascular accident) Surgical History History of cholecystectomy History of hysterectomy Social History household members: spouse housing: house Smoking Status: Never smoker second hand exposure: Yes alcohol intake: never substance use type: does not use caffeine: No what type of physical activity do you participate in: none ROS ROS ED Constitutional Constitutional ED: Denies chills, fever(s) or sweats Eyes Eyes: Denies change in vision ENT ENT ED: Denies dysphagia or sore throat Cardiovascular Cardiovascular: Denies chest pain, leg edema, palpitations or racing heartbeat Respiratory/Chest Respiratory/Chest: Denies cough, dyspnea or dyspnea on exertion Gastrointestinal Gastrointestinal: Denies abdominal pain, diarrhea, nausea or vomiting Genitourinary Genitourinary ED: Denies dysuria, hematuria or urinary frequency Musculoskeletal Musculoskeletal: Denies back pain, extremity pain or neck pain Integumentary Denies rash or wounds Neurologic Neurologic: Denies headache(s), paresthesias or weakness EXAM Physical Exam Const Vital Signs: 11/15/21 12:23 Temperature 97.3 F L Temperature Source Temporal Pulse Rate 74 Respiratory Rate 16 Blood Pressure 124/70 H Blood Pressure Mean 88 Pulse Ox 97 Oxygen Delivery Method Room Air Positive well nourished and well developed General Appearance ED: well developed and NAD HEENT Reports moist mucous membranes normocephalic and atraumatic Eyes PERRL, EOMs intact bilaterally and conjunctivae normal General Eye ED: Yes normal appearance of both eyes Neck no lymphadenopathy and supple General: Negative for tenderness Chest Wall Chest: Negative for tenderness Resp normal respiratory effort and normal air movement Effort and Inspection: symmetric chest movement; Negative for respiratory distress Cardio regular rate, regular rhythm and no murmurs Peripheral Pulses: pulses 2+ throughout GI normal to inspection, nondistended, normoactive bowel sounds and non-tender Palpation: Negative for guarding or rebound tenderness present Back/Spine no CVA tenderness and no thoracic nor lumbar tenderness Extremity normal to inspection General Extremety ED: Negative for edema or tenderness General Extremity: Negative for edema Neuro oriented x3 and no sensory deficits noted Sensorium / Orientation: awake and alert Skin no rashes or lesions noted and no wounds MDM MDM MDM Narrative Medical decision making narrative: Patient nontoxic, nontender abdomen currently diarrhea has improved. Spouse concerned patient not eating was referred in here. She denies nausea. With her recent infection I check labs to make sure electrolytes are normal in particular her sodium which returned at 141. White count improved to 7.9. She had a noncomplicated diverticulitis from CT 3 days ago. She has no pain for concerns for complications. She had no nausea she was able to tolerate a meal while in the ED. She will. All questions were answered. Lab Data Attestation: I reviewed the patient's lab results. Labs: Laboratory Results - last 24 hr 11/15/21 11/15/21 14:30 14:30 WBC 7.9 RBC 4.20 Hgb 12.6 Hct 37.8 MCV 90.0 MCH 30.0 MCHC 33.3 RDW Std Deviation 40.0 RDW Coeff of Joy 12.2 Plt Count 162 MPV 12.5 H Immature Gran % (Auto) 0.300 Neut % (Auto) 76.2 H Lymph % (Auto) 14.3 L Robeson % (Auto) 6.9 Eos % (Auto) 2.0 Baso % (Auto) 0.3 Absolute Neuts (auto) 6.0 Absolute Lymphs (auto) 1.13 Nucleated RBC % 0 Sodium 141 Potassium 3.5 Chloride 112 H Carbon Dioxide 22.0 Anion Gap 7 BUN 12 Creatinine 1.27 H Estim Creat Clear Calc 35.28 Est GFR (MDRD) Af Amer 53 L Est GFR (MDRD) Non-Af 43 L BUN/Creatinine Ratio 9.4 L Glucose 75 Calcium 9.2 Discharge Plan Triage Chief Complaint: Nausea/Vomiting ED Provider: Asim Tanner Dx/Rx/DC Orders Clinical Impression: Decreased appetite, Diverticulitis large intestine Instructions: ED Diverticulitis Prescriptions: No Action cholecalciferol (vitamin D3) 1,000 UNIT capsule 1,000 unit PO BID amlodipine 5 mg tablet 5 mg PO DAILY Label Comments: TAKE 1 TABLET BY MOUTH ONCE DAILY clopidogrel [Plavix] 75 mg tablet 75 mg PO DAILY Qty: 30 1RF clonazepam 0.5 mg tablet 1.5 mg PO QHS Label Comments: TAKE 3 TABLETS BY MOUTH ONCE DAILY AT BEDTIME amoxicillin-pot clavulanate 875-125 mg tablet 1 tab PO BID Qty: 24 0RF atorvastatin 40 mg tablet 40 mg PO QHS Primary Care Provider: Erna Encarnacion Referrals: Erna Encarnacion MD [Primary Care Provider] - Silvano Braun MD [Non-Staff] - 1 Week Activity Restrictions/Additional Instructions: Finish your Augmentin as clinically you are getting better. Labs today normal electrolytes and white cells. Continue to eat as you are able to here. Follow-up with Dr. Braun Disposition Disposition: Home, Self Care
[2021-11-15 17:29] VITALS: BP 122/89; PULSE 64; RESP 16; O2SAT 98
== END 2021-11-15 17:30 | disposition home or self-care (01) ==
PROVIDERS: Emergency Provider Emergency Medicine; PCP Internal Medicine; Visit Provider Emergency Medicine
DX: K57.32 Diverticulitis of large intestine without perforation or abscess without bleeding (principal); N18.30 Chronic kidney disease, stage 3 unspecified; E78.5 Hyperlipidemia, unspecified; I12.9 Hypertensive chronic kidney disease with stage 1 through stage 4 chronic kidney disease, or unspecified chronic kidney disease; J45.909 Unspecified asthma, uncomplicated; Z86.73 Personal history of transient ischemic attack (TIA), and cerebral infarction without residual deficits
CPT/HCPCS: 80048; 85025; 99283; J7030; A4216

== ENCOUNTER → 2022-11-15 | Outpatient (CLI) | payer MEDICARE, OTHER, SELFPAY | END | disposition home or self-care (01) | LOC: SL 20:01 | PROVIDERS: PCP Internal Medicine; Visit Provider Psychiatry & Neurology Sleep Medicine | DX: G47.33 Obstructive sleep apnea (adult) (pediatric) (principal); G47.52 REM sleep behavior disorder | CPT/HCPCS: 95810 ==

== ENCOUNTER → 2023-02-03 | Outpatient (CLI) | payer MEDICARE, OTHER, SELFPAY | END | disposition home or self-care (01) | LOC: SL 20:24 | PROVIDERS: PCP Internal Medicine | DX: G47.33 Obstructive sleep apnea (adult) (pediatric) (principal); G47.52 REM sleep behavior disorder; R41.3 Other amnesia; G47.00 Insomnia, unspecified | CPT/HCPCS: 95810 ==

== ENCOUNTER 2024-01-09 09:16 | Inpatient (IN) | payer MEDICARE, OTHER, SELFPAY ==
[2024-01-09] VITALS (10 sets, daily range): BP systolic 101–155; BP diastolic 60–82; PULSE 72–98; RESP 15–22; TEMP 36.6–37; O2SAT 98–100; BMI 25.8; BMI 23.3
--- NOTE | 2024-01-09 09:25 | CT_ITS ---
INDICATION: dizziness headache EXAMINATION: CT BRAIN - CT Head or Brain W/O Contrast Injection TECHNIQUE: Multiple axial images were obtained of the head without intravenous contrast. The protocol utilizes one or more of the following dose reduction techniques: automated exposure control, adjustment of mA and/or kV according to patient size,and/or use of iterative reconstruction technique. IV Contrast dosage and agent: None. RADIATION DOSAGE (If Supplied By Facility): CTDIvol = ( 44.99 ) mGy, DLP = ( 846.73 ) mGycm COMPARISON: Prior study dated: 06/16/2021 FINDINGS: BRAIN PARENCHYMA: No intra- or extra-axial hemorrhage. No evidence of acute infarct. Old right occipital infarct. Small old left cerebellar infarct. No intracranial mass or mass effect. There is preservation of the lamb/white matter interface. Periventricular deep white matter changes likely due to chronic microvascular disease. Posterior fossa structures are unremarkable. Atherosclerotic calcifications of the cavernous internal carotid arteries. CSF SPACES: Mild diffuse atrophy. No hydrocephalus. Basal cisterns are patent. Occipital scalp calcified mass stable since previous examination. CALVARIUM, SKULL BASE, PARANASAL SINUSES AND MASTOID AIR CELLS: Clear. No discrete lytic or blastic abnormalities. ORBITS: Both globes, extraocular muscles, optic nerves and retrobulbar fat appear unremarkable. CT/Brain/Head without Contrast IMPRESSION: 1. No acute intracranial process. 2. Chronic involutional changes of the brain and old infarcts. Electronically Signed: Ector Santizo MD at 10:51 EDT ,
--- NOTE | 2024-01-09 09:26 | EKG12_ITS ---
Test Reason : DIZZINESS Blood Pressure : / mmHG Vent. Rate : 079 BPM Atrial Rate : 079 BPM P-R Int : 156 ms QRS Dur : 084 ms QT Int : 436 ms P-R-T Axes : 074 055 078 degrees QTc Int : 499 ms Normal sinus rhythm Normal ECG Confirmed by TIMBO SHEN, KENYA ([id number]), story editor SKASHI LESLIE ([id number]) on 01/10/2024 10:06:28 AM Referred By: Confirmed By:KENYA IZQUIERDO MD
--- NOTE | 2024-01-09 09:26 | NURSING ---
0911 STROKE ALERT CALLED PRIOR TO ARRIVAL
--- NOTE | 2024-01-09 09:27 | EX.ED.DYSGE1 ---
HPI History of Present Illness Chief Complaint: Stroke Alert Informant: patient, spouse/S.O. and EMS Narrative Narrative: 78-year-old female presenting to the emergency room via EMS with a prehospital stroke alert. Patient has had prior stroke. She has some mild residual left-sided weakness and mild dysarthria. states at 730 this morning he left the home and she appeared well. When he returned home shortly after that he found her on the floor of the bathroom. He states that she was complaining that she was very dizzy and had vomiting. She describes the dizziness as the room is spinning. It is worse when she moves her head. She notes persistent nausea. gave her a meclizine which she has had for vertigo in the past. During the examination the states that her speech appears normal. She notes a slight headache at the top of my head. Patient is on Plavix. [facility] Medical History (Updated 01/09/24 @ 15:[address] Shanta Wilburn MD) Fall Dysarthria CVA (cerebral vascular accident) NSVT (nonsustained ventricular tachycardia) CVA (cerebral vascular accident) Status post placement of implantable loop recorder (~09/18/19) Tubulovillous adenoma of colon Occult blood in stools Essential (primary) hypertension Parasomnia Allergic rhinitis CKD (chronic kidney disease) stage 3, GFR 30-59 ml/min Dysthymia Vitamin D deficiency Osteopenia Anxiety Recurrent major depressive disorder, in full remission Hyperlipidemia Asthma SABRINA (obstructive sleep apnea) Home Medications ?Medication ?Instructions ?Recorded ?Last Taken ?Type cholecalciferol (vitamin D3) 25 1,000 unit PO BID supplement 08/29/16 06/16/21 History mcg (1,000 unit) capsule amlodipine 5 mg tablet 5 mg PO DAILY BP 06/16/21 06/16/21 History clopidogrel 75 mg tablet (Plavix) 75 mg PO DAILY #30 tabs 06/17/21 Unknown Rx clonazepam 0.5 mg tablet 1.5 mg PO QHS 11/12/21 Unknown History citalopram 20 mg tablet 30 mg PO DAILY 01/09/24 Unknown History colestipol 1 gram tablet 1 g PO BID 01/09/24 Unknown History Allergy/AdvReac Type Severity Reaction Status Date / Time No Known Allergies Allergy Verified 11/15/21 12:27 Family History Mother Emphysema lung Brother Cancer Kidney Stomach ulcer Father Cancer Bladder Aunt CVA (cerebral vascular accident) Surgical History History of cholecystectomy History of hysterectomy Social History household members: spouse housing: house Smoking Status: Never smoker second hand exposure: Yes alcohol intake: never substance use type: does not use caffeine: No what type of physical activity do you participate in: none ROS ROS ED Constitutional Constitutional ED: Denies chills, fever(s) or weight loss Eyes Eyes: Denies change in vision or diplopia ENT ENT ED: Denies ear pain, rhinorrhea or sore throat Cardiovascular Cardiovascular: Denies chest pain, orthopnea, palpitations or racing heartbeat Respiratory/Chest Respiratory/Chest: Denies cough, dyspnea or orthopnea Gastrointestinal Gastrointestinal: Reports nausea and vomiting; Denies abdominal pain or diarrhea Genitourinary Genitourinary ED: Denies dysuria, hematuria or urinary frequency Musculoskeletal Musculoskeletal: Denies arthralgias or myalgias Integumentary Denies abscess or rash Neurologic Neurologic: Reports paresthesias RUE (Fingertips of both hands are tingling) and LUE and other Details: Dizziness ; Denies headache(s) or weakness Psychiatric Psychiatric: Denies anxiety, depression, suicidal ideation or suicidal thoughts Endocrine Endocrinology: Denies polydipsia, polyphagia or polyuria Allergic/Immunologic Allergic/Immunologic ED: Denies mouth swelling, tongue swelling or urticaria EXAM Physical Exam Narrative Exam Narrative: Patient appears quite nauseous. She has emesis on her shirt. Const Vital Signs: 01/09/24 09:16 01/09/24 10:16 01/09/24 11:00 Temperature 97.8 F 98.6 F Temperature Source Oral Oral Pulse Rate 81 79 72 Respiratory Rate 16 18 16 Blood Pressure 128/68 H 149/67 H 131/62 H Blood Pressure Mean 88 94 85 Pulse Ox 100 98 98 Oxygen Delivery Method Room Air Room Air Room Air 01/09/24 12:00 01/09/24 12:00 01/09/24 13:00 Temperature Temperature Source Pulse Rate 77 73 74 Respiratory Rate 21 H 19 H 22 H Blood Pressure 155/69 H 155/69 H 120/69 Blood Pressure Mean 97 94 86 Pulse Ox 98 Oxygen Delivery Method Room Air 01/09/24 14:00 01/09/24 15:00 Temperature Temperature Source Pulse Rate 98 78 Respiratory Rate 15 Blood Pressure 101/82 H 124/60 H Blood Pressure Mean 88 81 Pulse Ox 98 Oxygen Delivery Method Room Air Positive well nourished and well developed General Appearance ED: well developed HEENT Reports normocephalic, head/scalp atraumatic and moist mucous membranes Eyes PERRL and EOMs intact bilaterally Eyes Narrative: Patient is noted to have a horizontal nystagmus with a fast component to the left Neck no lymphadenopathy, supple and no JVD Resp clear to auscultation bilaterally Resp Narrative: Patient appears to be hyperventilating Cardio regular rate, regular rhythm and no murmurs GI normal to inspection, nondistended, normoactive bowel sounds and non-tender Palpation: soft Back/Spine no CVA tenderness and normal ROM Extremity normal to inspection General Extremety ED: Negative for edema General Extremity: Negative for edema Neuro oriented x3 and CN's II-XII intact bilaterally Neuro Narrative: Patient appears to have a mild dysarthria (chronic per ). Patient states that her dizziness is worse when she moves her head to the right and to the left. It is also worse when we lay her down and set her up. Sensorium / Orientation: alert Sensory Exam: No sensory level loss detected Motor Exam: strength 5/5 throughout Psych Mood & Affect: anxious; Negative for depressed or tearful Skin no rashes or lesions noted and no wounds MDM MDM MDM Narrative Medical decision making narrative: Differential diagnosis includes but not limited to stroke intracranial hemorrhage mass peripheral vertigo anemia electrolyte abnormalities vasovagal Patient scores a NIH of 1 only for her chronic unchanged dysarthria. She does have worsening vertiginous symptoms with movement of her head and position of body. She has a horizontal nystagmus. Patient received meclizine at home. We administered Zofran and 2.[address] of the brain shows no acute findings. My independent interpretation of the chest x-ray is no acute process. EKG is in normal sinus rhythm. Basic blood work showed no obvious infection in the urine glucose 198 creatinine 1.5 BUN of 19 hemoglobin 13.4 CO2 of 18 anion gap of 10. I think the CO2 of 18 is probably due to hyperventilation. Patient was allowed to rest. She stated that the dizziness was improved but when we got her up to ambulate she could not do so on multiple occasions. It was felt that she was more weak than dizzy. I will speak with the hospitalist regarding admissions. At this point I think this is most likely peripheral vertigo with some component of medication-induced weakness. History & Record Review Discussion w/independent historian: EMS personnel, Patient and Significant other Lab Data Attestation: I reviewed the patient's lab results. Labs: Laboratory Results - last 24 hr 01/09/24 01/09/24 09:02 12:39 WBC 10.3 RBC 4.45 Hgb 13.4 Hct 41.1 MCV 92.4 MCH 30.1 MCHC 32.6 RDW Std Deviation 41.7 RDW Coeff of Joy 12.2 Plt Count 218 MPV 11.3 Immature Gran % (Auto) 0.800 Neut % (Auto) 56.7 Lymph % (Auto) 33.5 [place] % (Auto) 6.8 Eos % (Auto) 1.7 Baso % (Auto) 0.5 Absolute Neuts (auto) 5.8 Absolute Lymphs (auto) 3.43 Nucleated RBC % 0 Sodium 142 Potassium 3.6 Chloride 114 H Carbon Dioxide 18.0 L Anion Gap 10 BUN 19 H Creatinine 1.53 H Estim Creat Clear Calc 30.91 Est GFR (MDRD) Af Amer 42 L Est GFR (MDRD) Non-Af 35 L BUN/Creatinine Ratio 12.4 Glucose 198 H Calcium 9.7 Urine Color Yellow Urine Clarity Sl. Cloudy Urine pH 6.0 Ur Specific [place] 1.015 Urine Protein 15 H Urine Glucose (UA) Normal Urine Ketones Negative Urine Occult Blood 25 H Urine Nitrite Negative Urine Bilirubin Negative Urine Urobilinogen Normal Ur Leukocyte Esterase 100 H Urine RBC 0-5 SEEN Urine WBC 5-10 SEEN Ur Squamous Epith Cells 0 SEEN Urine Bacteria 0 SEEN Urine Mucus 0 SEEN Radiography Diagnostic Testing: Clinical Impression(s) from Imaging Studies Brain CT 01/09/24 09:25 IMPRESSION: 1. No acute intracranial process. 2. Chronic involutional changes of the brain and old infarcts. Electronically Signed: Ector Santizo MD at 10:51 EDT , Chest X-Ray 01/09/24 09:45 IMPRESSION: No radiographic evidence of acute cardiopulmonary disease. Electronically Signed: Ector Santizo MD at 10:04 EDT , EKG Initial EKG: Attestation: I personally reviewed and interpreted this EKG as follows: Comments: Normal sinus rhythm ventricular rate of 79 bpm Management Discussion w/another healthcare provider: Hospitalist (Dr Wilburn) Discharge Plan Triage Chief Complaint: Stroke Alert ED Provider: Elan Laguerre Dx/Rx/DC Orders Primary Care Provider: Erna Encarnacion NIHSS NIHSS 1a. Level of Consciousness: Alert; keenly responsive 1b. LOC Questions: Answers BOTH questions correctly. 1c. LOC Commands: Performs both tasks correctly. 2. Best Gaze: Normal 3. Visual: No visual loss 4. Facial Palsy: Normal symmetrical movements 5a. Left Arm: No drift; arm holds 90 (or 45) degrees for full 10 seconds 5b. Right Arm: No drift; arm holds 90 (or 45) degrees for full 10 seconds 6a. Left Leg: No drift; leg holds 30-degree position for full 5 seconds 6b. Right Leg: No drift; leg holds 30-degree position for full 5 seconds 7. Limb Ataxia: Absent 8. Sensory: Normal; no sensory loss 9. Best Language: No aphasia; normal 10. Dysarthria: [id number] dysarthria; 11. Extinction and Inattention: No abnormality Total: 1
[2024-01-09] MEDS: diazePAM 5 MG Tablet 2.5 MG PO (09:35)
[2024-01-09] MEDS: Ondansetron 4 MG/2 ML Vial IV (09:35)
[2024-01-09 09:36] LABS: Absolute Lymphocyte Count 3.43 X10^3/uL (0.83-4.51); Absolute Neutrophil Count 5.8 X10^3/uL (2.0-7.7); Basophil# 0.05 X10^3/uL; Basophil% 0.5 % (0-1); Eosinophil# 0.17 X10^3/uL; Eosinophils% 1.7 % (0-5); Hematocrit 41.1 % (37-47); Hemoglobin 13.4 g/dL (12.0-15.0); Lymphocyte # 3.43 X10^3/ul (0.83-4.51); Lymphocyte % 33.5 % (19-41); Mean Corp Hgb Conc 32.6 g/dL (32-36); Mean Corpuscular Hgb 30.1 pg (27.0-32.0); Mean Corpuscular Volume 92.4 fL (81-99); Mean Platelet Vol. 11.3 fl (6.2-12.0); Monocyte% 6.8 % (0-10); NRBC Flagged by Analyzer 0 % (0-5); Neutrophil # 5.82 X10^3/uL (2.7-7.7); Neutrophil % 56.7 % (47-70); Platelet Count 218 K/mm3 (150-450); RBC Distribution Width CV 12.2 % (11.6-14.6); RBC Distribution Width SD 41.7 fl (35.1-43.9); Red Blood Count 4.45 M/mm3 (4.2-5.4); White Blood Count 10.3 K/mm3 (4.4-11.0)
--- NOTE | 2024-01-09 09:45 | RAD_ITS ---
INDICATION: hypertension EXAMINATION/TECHNIQUE: X-RAY - XR Chest 1 View COMPARISON: Prior study dated: 06/16/2021 FINDINGS: LINES/DEVICES: External loop recorder device overlying the left lower chest. LUNGS: No consolidation, edema or effusion. No pneumothorax. MEDIASTINUM AND CARDIOVASCULAR STRUCTURES: Cardiac silhouette not enlarged. Central airways and mediastinal contour are unremarkable. BONES AND SOFT TISSUES: Unremarkable. RAD/Chest 1 View (Portable) IMPRESSION: No radiographic evidence of acute cardiopulmonary disease. Electronically Signed: Ector Santizo MD at 10:04 EDT ,
[2024-01-09 09:48] LABS: Anion Gap 10 (5-15); BUN 19 mg/dL (7-18); BUN/Creat Ratio 12.4 RATIO (10-20); Calcium,Total 9.7 mg/dL (8.5-10.1); Chloride 114 mmol/L (98-107); Creatinine, Serum 1.53 mg/dL (0.55-1.02); EST Glomerular Filtration Rate 35 mL/min (>60); Est Glom Filt Rate - Afr Amer 42 mL/min (>60); Estimated Creatinine Clearance 30.91 ml/min; Glucose 198 mg/dL (74-106); Potassium 3.6 mmol/L (3.5-5.1); Sodium Level 142 mmol/L (136-145)
[2024-01-09 12:46] LABS: Bacteria 0 SEEN /hpf (None Seen); Mucous, Urine 0 SEEN /hpf (<or=2+); Squamous Epithelial Cells - UA 0 SEEN /hpf (5-10)
[2024-01-09 12:48] LABS: Color, Urine Yellow (Yellow); Glucose, Dipstick Normal (Normal); Ketone-Dipstick Negative (Negative); Leukocyte Esterase-Dipstick 100 /ul (Negative); Nitrite-Dipstick Negative (Negative); Occult Blood-Urine 25 /ul (Negative); Protein-Dipstick 15 mg/dl (Negative); Specific Gravity, Urine 1.015 (1.002-1.030); Urine Bilirubin Dipstick Negative (Negative); Urine Clarity Sl. Cloudy (Clear); Urine Urobilinogen Normal (Normal)
[2024-01-09 12:54] LABS: Red Blood Cells-Urine 0-5 SEEN /hpf (0-5); White Blood Cells 5-10 SEEN /hpf (0-5)
--- NOTE | 2024-01-09 15:05 | PCM.HP.STD ---
HPI - General General Date of Admission: 01/09/24 Date of Service: 01/09/24 Chief Complaint: Vertiginous symptoms HPI Narrative TODD MADRID, is a 78-year-old female history of prior CVA with residual left-sided weakness and mild dysarthria, hypertension, SABRINA, CKD who presented to [facility] ED 01/09/2024 with dizziness and vomiting. In the ED her reported when he left home at 7:30 in the morning she appeared well but he reports when he returned home shortly after that he found on the floor of the bathroom and she was complaining that she was very dizzy and had vomited. Dizziness described as room spinning and worse when she moves her head. Also persistent nausea, has been given meclizine which she had for vertigo in the past. In the ED patient had CT scan of the head which showed old infarcts but nothing acute, given high suspicion for peripheral not central vertigo patient was not stroke alert, vertiginous symptoms improving with treatment though patient feeling little bit weak all over and not safe to go home so hospitalist contacted for admission. Patient evaluated with at bedside, she reports she was feeling in her normal health until this morning when she suddenly had the feeling of the room spinning around her when she landed on the floor and hit her right shoulder and began to feel nauseous. Has had vertigo in the past but has been so many years she does not remember what that felt like and is not sure if this is similar to how it was previously. Does report she still gets the room spinning sensation when she moves her head but is beginning to feel somewhat better. She has some residual deficits from previous stroke including some mild dysarthria and some left-sided weakness and she does not note any worsening of either of these and has no focal numbness or weakness complaints. Does report since her stroke in 2021 she has been worked up for what sounds to be NPH through [facility], it sounds as though they discussed METAL HANGER shunt recently with [facility] but given symptoms were mild and patient barely on cutoff for intervention they did not think that benefits of LP and possible METAL HANGER shunt would outweigh the risks. Though symptoms are stable and independent of this vertiginous feeling. No fevers or chills, no visual changes, no other new or focal complaints. [facility] Medical History (Updated 01/09/24 @ 15:[address] Shanta Wilburn MD) Allergic rhinitis Anxiety Asthma CKD (chronic kidney disease) stage 3, GFR 30-59 ml/min CVA (cerebral vascular accident) CVA (cerebral vascular accident) Dysarthria Dysthymia Essential (primary) hypertension Fall Hyperlipidemia NSVT (nonsustained ventricular tachycardia) Occult blood in stools SABRINA (obstructive sleep apnea) Osteopenia Parasomnia Recurrent major depressive disorder, in full remission Status post placement of implantable loop recorder (~09/18/19) Tubulovillous adenoma of colon Vitamin D deficiency Home Medications ?Medication ?Instructions ?Recorded ?Last Taken ?Type cholecalciferol (vitamin D3) 25 1,000 unit PO BID supplement 08/29/16 06/16/21 History mcg (1,000 unit) capsule amlodipine 5 mg tablet 5 mg PO DAILY BP 06/16/21 06/16/21 History clopidogrel 75 mg tablet (Plavix) 75 mg PO DAILY #30 tabs 06/17/21 Unknown Rx clonazepam 0.5 mg tablet 1.5 mg PO QHS 11/12/21 Unknown History citalopram 20 mg tablet 30 mg PO DAILY 01/09/24 Unknown History colestipol 1 gram tablet 1 g PO BID 01/09/24 Unknown History Allergy/AdvReac Type Severity Reaction Status Date / Time No Known Allergies Allergy Verified 11/15/21 12:27 Family History Mother Emphysema lung Brother Cancer Kidney Stomach ulcer Father Cancer Bladder Aunt CVA (cerebral vascular accident) Surgical History History of cholecystectomy History of hysterectomy Social History household members: spouse housing: house Smoking Status: Never smoker second hand exposure: Yes alcohol intake: never substance use type: does not use caffeine: No what type of physical activity do you participate in: none ROS ROS Narrative General: Denies fever/chills HENT:denies stuffy nose, denies sore throat EYES: Denies changes in vision Resp: Denies cough, denies shortness of breath Cardiac: Denies chest pain GI: Denies abdominal pain, denies changes in bowel, denies nausea/vomiting : Denies changes in urination Extremity: Denies swelling MSK: Denies focal weakness, feels generally weak Neuro: Denies any numbness/tingling Heme: Denies any bleeding or bruising Skin: Denies rashes Psychiatric: No complaints voiced Vital Signs Vital Signs Vital Signs: 01/09/24 09:16 01/09/24 10:16 01/09/24 11:00 Temperature 97.8 F 98.6 F Temperature Source Oral Oral Pulse Rate 81 79 72 Respiratory Rate 16 18 16 Blood Pressure 128/68 H 149/67 H 131/62 H Blood Pressure Mean 88 94 85 Pulse Ox 100 98 98 Oxygen Delivery Method Room Air Room Air Room Air 01/09/24 12:00 01/09/24 12:00 01/09/24 13:00 Temperature Temperature Source Pulse Rate 77 73 74 Respiratory Rate 21 H 19 H 22 H Blood Pressure 155/69 H 155/69 H 120/69 Blood Pressure Mean 97 94 86 Pulse Ox 98 Oxygen Delivery Method Room Air 01/09/24 14:00 01/09/24 15:00 Temperature Temperature Source Pulse Rate 98 78 Respiratory Rate 15 Blood Pressure 101/82 H 124/60 H Blood Pressure Mean 88 81 Pulse Ox 98 Oxygen Delivery Method Room Air Weight Weight: 72.6 kg Body Mass Index (BMI) 25.8 Physical Exam Narrative General: Alert, no apparent distress HEENT: Atraumatic, normocephalic, tympanic membranes clear, no earwax impaction or other abnormalities appreciated Eyes: Anicteric, normal conjunctiva, extraocular movements intact with some nystagmus on far left lateral gaze, right pupil minimally larger than left and both reactive Neck: Supple Respiratory: Clear to auscultation bilaterally, normal respiratory effort Cardiovascular: Regular rate and rhythm GI: Soft, nontender, nondistended Extremities: No edema Musculoskeletal: Strength 5 out of 5 in right upper extremity, 5 out of 5 left upper extremity, 5 out of 5 right lower extremity, 5 out of 5 left lower extremity Neuro: Slight dysarthria otherwise no overt focal neurological deficits, cranial nerves II through XII intact, [id number] without significant difficulty with right hand, did have some difficulty with left hand Skin: No rashes appreciated Psych: Cooperative Results Lab / Micro Data 01/09/24 09:02 01/09/24 09:02 Labs: Laboratory Results - last 24 hr 01/09/24 09:02: WBC 10.3, RBC 4.45, Hgb 13.4, Hct 41.1, MCV 92.4, MCH 30.1, MCHC 32.6, RDW Std Deviation 41.7, RDW Coeff of Joy 12.2, Plt Count 218, MPV 11.3, Immature Gran % (Auto) 0.800, Neut % (Auto) 56.7, Lymph % (Auto) 33.5, [place] % (Auto) 6.8, Eos % (Auto) 1.7, Baso % (Auto) 0.5, Absolute Neuts (auto) 5.8, Absolute Lymphs (auto) 3.43, Nucleated RBC % 0, Sodium 142, Potassium 3.6, Chloride 114 H, Carbon Dioxide 18.0 L, Anion Gap 10, BUN 19 H, Creatinine 1.53 H, Estim Creat Clear Calc 30.91, Est GFR (MDRD) Af Amer 42 L, Est GFR (MDRD) Non-Af 35 L, BUN/Creatinine Ratio 12.4, Glucose 198 H, Calcium 9.7 01/09/24 12:39: Urine Color Yellow, Urine Clarity Sl. Cloudy, Urine pH 6.0, Ur Specific [place] 1.015, Urine Protein 15 H, Urine Glucose (UA) Normal, Urine Ketones Negative, Urine Occult Blood 25 H, Urine Nitrite Negative, Urine Bilirubin Negative, Urine Urobilinogen Normal, Ur Leukocyte Esterase 100 H, Urine RBC 0-5 SEEN, Urine WBC 5-10 SEEN, Ur Squamous Epith Cells 0 SEEN, Urine Bacteria 0 SEEN, Urine Mucus 0 SEEN Imaging Radiology Impression Brain CT 01/09/24 09:25 IMPRESSION: 1. No acute intracranial process. 2. Chronic involutional changes of the brain and old infarcts. Electronically Signed: Ector Santizo MD at 10:51 EDT , Chest X-Ray 01/09/24 09:45 IMPRESSION: No radiographic evidence of acute cardiopulmonary disease. Electronically Signed: Ector Santizo MD at 10:04 EDT , Assessment & Plan Assessment/Plan (1) Vertigo: PLAN: Plan # Vertiginous symptoms -Admit to tele -CT head w/ chronic changes and previous strokes in ED -Patient with nystagmus on far left lateral gaze and symptoms of room spinning around her more so when she moves her head and has history of vertigo. Also symptoms improving with home meclizine and Valium though not completely gone. Symptoms seem most consistent with peripheral vertigo not central vertigo -Low suspicion of acute CVA however given patient's difficulty with finger-nose with left arm feel it is reasonable to get a MRI, patient has some residual left-sided symptoms chronically and it is possible that this is not a new finding but as this is unclear will obtain MRI -Again low suspicion for CVA- hospitalist contacted for admission largely due to patient feeling generally weak and being unsafe to go home -Will hold off on echocardiogram or neurology consultation unless patient has change in symptoms or CVA identified -PT/OT c/s d/t feeling weak -Continue plavix and statin #Fall d/t vertigo -Will obtain R shoulder xray and prescribe topical agent -Tylenol prn # History of previous CVA -On Plavix, continue statin # CKD stage III b -Slightly up from previous values in 2021 with slightly elevated BUN with no recent values and would not meet criteria for REBECCA based on previous values -Avoid nephrotoxic agents -Daily BMPs #SABRINA -If patient will have prolonged stay may benefit from brain NIPPV #DVT ppx: SCDs Shanta Wilburn MD Time spent in the patient's overall evaluation, decision-making process, review of diagnostic data, adjustment of management, discussion with other providers, nursing nursing and ancillary staff involved in patient's care documentation, 56 Minutes Charges/Coding Visit Charges Inpatient E&M: 10694 Init Hosp L2
--- NOTE | 2024-01-09 15:14 | NURSING ---
PCU TRISHA OBS DIZZINESS
--- NOTE | 2024-01-09 16:07 | MRI_ITS ---
We are attempting to reach an attending provider to discuss findings. An addendum with communication details will be sent when the communication is complete. EXAM: MR HEAD WITHOUT INTRAVENOUS CONTRAST CLINICAL INDICATION: Vertiginous symptoms TECHNIQUE: Multiplanar and multisequence MR images of the brain were obtained without intravenous contrast. COMPARISON: MR Head dated 06/17/2021 FINDINGS: BRAIN AND EXTRA-AXIAL SPACES: 2.2 cm area of restricted diffusion noted along the superomedial portion of the left cerebellum consistent with acute ischemia. No hemorrhage or mass effect. Areas of increased T2 signal intensity noted within the right occipital white matter and within both frontal lobes suggestive of chronic microvascular change, unchanged from prior exam. Prominence of the cortical sulci and ventricles related to volume loss change. Basilar cisterns are patent. SELLA: Normal. Normal sella turcica, pituitary gland, infundibular stalk, optic chiasm and hypothalamus. AUDITORY SYSTEM: Normal. The internal auditory canals are patent. BONES/JOINTS: Intact calvarium. SINUSES: Unremarkable as visualized. Clear. MASTOID AIR CELLS: Clear. ORBITS: Unremarkable as visualized. Both globes, extraocular muscles, optic nerves and retrobulbar fat appear unremarkable. VASCULATURE: Unremarkable as visualized. Normal flow voids in the major intracranial circulation. MRI/Brain without Contrast IMPRESSION: 1. Focal acute ischemic change of the superomedial portion of the left cerebellum. 2. Chronic microvascular changes. Electronically Signed: Clifford Yuen MD at 16:24 EDT ,
--- NOTE | 2024-01-09 17:13 | RAD_ITS ---
EXAM: XR RIGHT SHOULDER COMPLETE, 2 OR MORE VIEWS CLINICAL INDICATION: fall on R shoulder w/ pain TECHNIQUE: Two or more views of the right shoulder. COMPARISON: No relevant prior studies available. FINDINGS: BONES/JOINTS: Unremarkable. No acute fracture. No subluxation. Normal alignment. Preservation of the joint space. No sclerotic or destructive changes observed. SOFT TISSUES: Unremarkable. No soft tissue swelling or gas. No radiopaque foreign body. RAD/Shoulder min 2 Views IMPRESSION: Negative right shoulder x-rays. Electronically Signed: Elsie Tavarez MD at 1:58 EDT ,
[2024-01-09] MEDS: 0.9% Saline Lock 10 ML Syringe IV (21:21)
[2024-01-09] MEDS: Colestipol 1 GM TABLET PO (21:21)
[2024-01-10 03:00] VITALS: BP 143/69; PULSE 86; RESP 16; TEMP 36.9; O2SAT 97
[2024-01-10 06:25] LABS: Absolute Lymphocyte Count 2.38 X10^3/uL (0.83-4.51); Absolute Neutrophil Count 7.2 X10^3/uL (2.0-7.7); Basophil# 0.05 X10^3/uL; Basophil% 0.5 % (0-1); Eosinophil# 0.08 X10^3/uL; Eosinophils% 0.7 % (0-5); Hematocrit 37.2 % (37-47); Hemoglobin 12.5 g/dL (12.0-15.0); Lymphocyte # 2.38 X10^3/ul (0.83-4.51); Lymphocyte % 22.2 % (19-41); Mean Corp Hgb Conc 33.6 g/dL (32-36); Mean Corpuscular Hgb 30.9 pg (27.0-32.0); Mean Corpuscular Volume 92.1 fL (81-99); Mean Platelet Vol. 11.8 fl (6.2-12.0); Monocyte# 0.99 X10^3/uL; Monocyte% 9.2 % (0-10); NRBC Flagged by Analyzer 0 % (0-5); Neutrophil # 7.16 X10^3/uL (2.7-7.7); Neutrophil % 66.9 % (47-70); Platelet Count 184 K/mm3 (150-450); RBC Distribution Width CV 12.5 % (11.6-14.6); RBC Distribution Width SD 42.7 fl (35.1-43.9); Red Blood Count 4.04 M/mm3 (4.2-5.4); White Blood Count 10.7 K/mm3 (4.4-11.0)
[2024-01-10 06:41] LABS: Anion Gap 4 (5-15); BUN 20 mg/dL (7-18); BUN/Creat Ratio 12.3 RATIO (10-20); Calcium,Total 9.2 mg/dL (8.5-10.1); Chloride 116 mmol/L (98-107); Creatinine, Serum 1.62 mg/dL (0.55-1.02); EST Glomerular Filtration Rate 33 mL/min (>60); Est Glom Filt Rate - Afr Amer 40 mL/min (>60); Estimated Creatinine Clearance 28.87 ml/min; Glucose 102 mg/dL (74-106); Potassium 3.8 mmol/L (3.5-5.1); Sodium Level 142 mmol/L (136-145)
[2024-01-10 08:58] VITALS: BP 144/66; PULSE 79; RESP 16; TEMP 36.9; O2SAT 96
[2024-01-10] MEDS: Citalopram 10 MG Tablet 30 MG PO (09:59)
[2024-01-10] MEDS: Colestipol 1 GM TABLET PO ×2 (09:59→21:38)
[2024-01-10] MEDS: Clopidogrel Bisulfate 75 MG Tablet PO (10:00)
[2024-01-10] MEDS: amLODIPine 5 MG Tablet PO (10:00)
[2024-01-10] MEDS: Arthritis Pain Compound 60 CLICK TUBE TOPICAL ×3 (10:01→21:38)
--- NOTE | 2024-01-10 15:27 | CASEMGMT ---
JUVENTINO MAGUIRE reviewed progress with therapy requiring min assist x2 and ambulating 12ft. Patient is confused, not at bedside. JUVENTINO MAGUIRE called to discuss progress with therapy and concerns at discharge. states that he will not be able to care for and realizes she will need additional therapy. Patient is currently in observation level of care and has straight MCR. JUVENTINO MAGUIRE explained observation level of care and that MCR will not cover SNF. JUVENTINO MAGUIRE discussed possible rehab unit at discharge, JUVENTINO MAGUIRE offered [facility] list but declined stating they would prefer to stay in [place]. agreeable to referral being sent to [facility]. Patient denies further questions or concerns. JUVENTINO MAGUIRE updated SW regarding request for [facility] referral. CM will continue to follow this patient and plan for a safe discharge.
[2024-01-10 15:30] VITALS: BP 153/70; PULSE 83; RESP 16; TEMP 36.8; O2SAT 97
--- NOTE | 2024-01-10 15:39 | CASEMGMT ---
Per RN CM patient's is interested in [facility] Acute Rehab. SW made a referral to Jen. Cristina HO
--- NOTE | 2024-01-10 15:47 | PCM.PN.HOSP ---
Subjective Subjective Her dizziness is better but she does seem weak. No issues overnight Objective Data Objective Data Vital Signs: Vital Signs Temp Pulse Resp BP Pulse Ox O2 Del Method 98.3 F 83 16 153/70 H 97 Room Air 01/10/24 15:30 01/10/24 15:30 01/10/24 15:30 01/10/24 15:30 01/10/24 15:30 01/10/24 15:30 Oxygen Delivery Method Room Air Weight: 153 lb 14.122 oz Body Mass Index (BMI) 23.3 Intake & Output: Intake and Output for Last 24 Hours 01/09/24 01/10/24 01/11/24 03:59 03:59 03:59 Intake Total 120 / 120 280 / 280 Output Total 100 / 100 Balance 120 / 120 180 / 180 Lab / Micro Data 01/10/24 05:38 01/10/24 05:38 Labs: Laboratory Results - last 24 hr 01/10/24 05:38: WBC 10.7, RBC 4.04 L, Hgb 12.5, Hct 37.2, MCV 92.1, MCH 30.9, MCHC 33.6, RDW Std Deviation 42.7, RDW Coeff of Joy 12.5, Plt Count 184, MPV 11.8, Immature Gran % (Auto) 0.500, Neut % (Auto) 66.9, Lymph % (Auto) 22.2, [place] % (Auto) 9.2, Eos % (Auto) 0.7, Baso % (Auto) 0.5, Absolute Neuts (auto) 7.2, Absolute Lymphs (auto) 2.38, Nucleated RBC % 0, Sodium 142, Potassium 3.8, Chloride 116 H, Carbon Dioxide 22.0, Anion Gap 4 L, BUN 20 H, Creatinine 1.62 H, Estim Creat Clear Calc 28.87, Est GFR (MDRD) Af Amer 40 L, Est GFR (MDRD) Non-Af 33 L, BUN/Creatinine Ratio 12.3, Glucose 102, Calcium 9.2 Radiography Diagnostic Testing: Radiology Impression Shoulder X-Ray 01/09/24 17:13 IMPRESSION: Negative right shoulder x-rays. Electronically Signed: Elsie Tavarez MD at 1:58 EDT , Physical Exam Narrative General: Alert, Oriented x2, Cooperative, No apparent distress HEENT: Atraumatic, PERRLA, EOMI, Normocephalic, no nystagmus Oral: Moist Mucosa Neck: Supple, No JVD Lungs: Clear to auscultation, Normal air movement, No rhonchi, No wheeze, No rales Cardiovascular: Regular rate, Regular Rhythm, Normal S1, Normal S2, No murmurs Abdomen: Soft, Non Tender, Non-Distended, No Hepato-splenomegaly Extremities: No edema, Capillary Refill Less than 3 Seconds Skin: No rashes, No breakdown Musculoskeletal: No Tenderness to Palpation of Joints or Extremities Neurological: Chronic dysarthria and some left hand weakness but upper extremities and lower extremities appear to be 5 out of 5. Sensations intact. She did have a previous stroke Psych/Mental Status: Normal Affect, Appropriate Assessment & Plan Assessment/Plan (1) Vertigo: PLAN: Plan 1. Left cerebellar CVA with generalized weakness and inability to complete ADLs/history of previous CVA ? Symptoms appear to be improving though she is generally weak ? PT/OT ? Creatinine today is 1.6 to baseline is around 1.3, will start her on some IV fluids ?Will consult neurology ? Continue with Plavix, and start her on Lipitor ? Echo tomorrow 2. Essential HTN ? Continue with Norvasc ? Will monitor make adjustments as necessary ? Blood pressure stable 3. CKD 3B ? Started on IV fluids and monitor ? Avoid nephrotoxic agents DVT: SCDs Charges/Coding Visit Charges Inpatient E&M: 13958 Subs Hosp L2
--- NOTE | 2024-01-10 16:06 | CASEMGMT ---
Met with patient to complete [employer] form. [employer] form explained to patient who voiced understanding and signed form. Original form placed in pt?s chart and copy provided to patient. Alyssa Juan, Discharge Planning Asst
[2024-01-10] MEDS: 0.9% Normal Saline (1000mL) 1,000 ML 75 ML IV (16:09)
[2024-01-10] MEDS: 0.9% Saline Lock 10 ML Syringe IV (16:09)
--- NOTE | 2024-01-10 16:34 | ECHOD_ITS ---
Reason For Study: TIA/CVA Procedure This was a 2D Doppler, Color Flow transthoracic echocardiogram. The study was technically difficult. Patient had uncontrollable shakes during exam. Exam performed portable in patient room. Left Ventricle Normal LV size. The left ventricular ejection fraction is 55 %. No regional wall motion abnormalities noted. Right Ventricle Normal RV size. Normal systolic function. Atria Normal left atrium. Normal right atrium. Mitral Valve Normal mitral valve. Tricuspid Valve Normal tricuspid valve. Aortic Valve Trisinus/trileaflet aortic valve. Pulmonic Valve Normal pulmonic valve. Great Vessels Normal aortic root. The pulmonary artery is normal size. Normal inferior vena cava. Pericardium/Pleural Small pericardial effusion. Pericardial effusion measures 1.4 cm in the largest dimension. MMode/2D Measurements & Calculations LVIDd: 4.1 cm IVSd: 1.1 cm LVOT diam: 1.9 cm LVIDs: 2.5 cm LVPWd: 0.98 cm LVOT area: 2.7 cm2 RVDd: 2.3 cm FS: 38.6 % LAV(MOD-bp): 28.0 ml LVAd ap4: 17.3 cm2 LVAd ap2: 15.0 cm2 LAV(MOD-bp) Indexed: 15.4 ml/m2 LVLd ap4: 7.2 cm LVLd ap2: 6.9 cm LAV(MOD-sp2): 24.5 ml EDV(MOD-sp4): 33.3 ml EDV(MOD-sp2): 26.8 ml LAV(MOD-sp4): 30.5 ml EDV(sp4-el): 35.4 ml EDV(sp2-el): 27.9 ml LVAs ap4: 8.2 cm2 LVAs ap2: 8.3 cm2 LVLs ap4: 5.3 cm LVLs ap2: 5.8 cm ESV(MOD-sp4): 10.6 ml ESV(MOD-sp2): 10.6 ml ESV(sp4-el): 10.8 ml ESV(sp2-el): 10.0 ml EF(MOD-sp4): 68.2 % EF(MOD-sp2): 60.4 % EF(sp4-el): 69.5 % SV(MOD-sp4): 22.7 ml SV(MOD-sp2): 16.2 ml SV(sp4-el): 24.6 ml Ao sinus diam: 3.[address] Junction: 2.4 cm LA A4 area: 13.1 cm2 LA dimension(2D): 3.5 cm RA A4 area: 6.6 cm2 TAPSE: 2.0 cm Time Measurements MV dec time: 0.06 sec Doppler Measurements & Calculations MV E max alo: 62.3 cm/sec Lat Peak E' Alo: 10.0 cm/sec Med Peak E' Alo: 7.4 cm/sec MV A max alo: 134.9 cm/sec E/E' lat: 6.2 E/E' med: 8.4 MV E/A: 0.46 Ao V2 max: 170.1 cm/sec LV V1 max: 108.0 cm/sec MV dec slope: 1084 cm/sec2 Ao max P.6 mmHg LV V1 max P.7 mmHg Ao V2 mean: 125.3 cm/sec LV V1 mean P.7 mmHg Ao mean P.9 mmHg LV V1 mean: 78.6 cm/sec Ao V2 VTI: 35.0 cm LV V1 VTI: 17.7 cm AV (velocity ratio): 0.51 AMBER(I,D): 1.4 cm2 AMBER(V,D): 1.7 cm2 SV(LVOT): 48.4 ml PA V2 max: 86.5 cm/sec ECHO/Echo Complete Interpretation Summary The left ventricular ejection fraction is 55 %. Normal LV size. Small pericardial effusion. Pericardial effusion measures 1.4 cm in the largest dimension. There is a small amount of fibrinous material also noted on the right ventricular surface. In comparison to the prev ious does not appear to be worse. Ordering Physician: Farooq Pagan Referring Physician: Erna Encarnacion M.D. Performed By: Estrella Tadeo RDCS
[2024-01-10 16:59] VITALS: BP 148/80; PULSE 85; RESP 16; TEMP 36.8; O2SAT 98
[2024-01-10 17:18] VITALS: BP 133/83; BP 145/76; BP 148/80; PULSE 100; PULSE 83; PULSE 92
[2024-01-10 17:59] LABS: Cholesterol 193 mg/dL (200); High Density Lipoprotein 65 mg/dL; Triglycerides 80 mg/dL; Very Low Density Lipoprotein 16 mg/dL (5-40)
[2024-01-10 20:10] VITALS: BP 152/91; PULSE 85; RESP 18; TEMP 37.5; O2SAT 97
[2024-01-10] MEDS: Atorvastatin Calcium 80 MG Tablet PO (21:38)
[2024-01-11 01:00] VITALS: BP 131/66; PULSE 89; RESP 16; TEMP 37.5; O2SAT 97
[2024-01-11 04:34] LABS: Absolute Lymphocyte Count 1.81 X10^3/uL (0.83-4.51); Absolute Neutrophil Count 9.5 X10^3/uL (2.0-7.7); Basophil# 0.04 X10^3/uL; Basophil% 0.3 % (0-1); Eosinophil# 0.11 X10^3/uL; Eosinophils% 0.9 % (0-5); Hematocrit 37.8 % (37-47); Hemoglobin 12.1 g/dL (12.0-15.0); Lymphocyte # 1.81 X10^3/ul (0.83-4.51); Lymphocyte % 14.6 % (19-41); Mean Corpuscular Hgb 29.7 pg (27.0-32.0); Mean Corpuscular Volume 92.6 fL (81-99); Mean Platelet Vol. 11.4 fl (6.2-12.0); Monocyte# 0.92 X10^3/uL; Monocyte% 7.4 % (0-10); NRBC Flagged by Analyzer 0 % (0-5); Neutrophil # 9.46 X10^3/uL (2.7-7.7); Neutrophil % 76.6 % (47-70); Platelet Count 175 K/mm3 (150-450); RBC Distribution Width CV 12.3 % (11.6-14.6); Red Blood Count 4.08 M/mm3 (4.2-5.4); White Blood Count 12.4 K/mm3 (4.4-11.0)
[2024-01-11 04:54] LABS: Anion Gap 5 (5-15); BUN 21 mg/dL (7-18); BUN/Creat Ratio 13.6 RATIO (10-20); Calcium,Total 9.2 mg/dL (8.5-10.1); Chloride 114 mmol/L (98-107); Creatinine, Serum 1.54 mg/dL (0.55-1.02); EST Glomerular Filtration Rate 35 mL/min (>60); Est Glom Filt Rate - Afr Amer 42 mL/min (>60); Estimated Creatinine Clearance 30.37 ml/min; Glucose 97 mg/dL (74-106); Potassium 3.5 mmol/L (3.5-5.1); Sodium Level 141 mmol/L (136-145)
[2024-01-11] MEDS: 0.9% Normal Saline (1000mL) 1,000 ML 75 ML IV (05:19)
[2024-01-11] MEDS: Arthritis Pain Compound 60 CLICK TUBE TOPICAL ×3 (05:20→21:16)
[2024-01-11 05:24] VITALS: BP 133/76; PULSE 85; RESP 16; TEMP 37.4; O2SAT 95
[2024-01-11 09:00] VITALS: BP 146/78; PULSE 90; RESP 18; TEMP 36.9; O2SAT 99
[2024-01-11] MEDS: Clopidogrel Bisulfate 75 MG Tablet PO (09:35)
[2024-01-11] MEDS: Citalopram 10 MG Tablet 30 MG PO (09:35)
[2024-01-11] MEDS: Colestipol 1 GM TABLET PO ×2 (09:35→21:17)
[2024-01-11] MEDS: amLODIPine 5 MG Tablet PO (09:35)
--- NOTE | 2024-01-11 10:05 | PN.HOSP_ITS ---
Subjective Subjective Doing well, no issues overnight Objective Data Objective Data Vital Signs: Vital Signs Temp Pulse Resp BP Pulse Ox O2 Del Method 98.4 F 90 18 146/78 H 99 Room Air 01/11/24 09:00 01/11/24 09:00 01/11/24 09:00 01/11/24 09:00 01/11/24 09:00 01/11/24 09:00 Oxygen Delivery Method Room Air Weight: 153 lb 14.122 oz Body Mass Index (BMI) 23.3 Intake & Output: Intake and Output for Last 24 Hours 01/10/24 01/11/24 01/12/24 03:59 03:59 03:59 Intake Total 120 / 120 620 / 620 1107.5 / 1107.5 Output Total 350 / 350 Balance 120 / 120 270 / 270 1107.5 / 1107.5 Lab / Micro Data 01/11/24 03:20 01/11/24 03:20 Labs: Laboratory Results - last 24 hr 01/10/24 05:38: Triglycerides 80, Cholesterol 193, LDL Cholesterol 112, VLDL Cholesterol 16, HDL Cholesterol 65 01/11/24 03:20: WBC 12.4 H, RBC 4.08 L, Hgb 12.1, Hct 37.8, MCV 92.6, MCH 29.7, MCHC 32.0, RDW Std Deviation 42.0, RDW Coeff of Joy 12.3, Plt Count 175, MPV 11.4, Immature Gran % (Auto) 0.200, Neut % (Auto) 76.6 H, Lymph % (Auto) 14.6 L, [place] % (Auto) 7.4, Eos % (Auto) 0.9, Baso % (Auto) 0.3, Absolute Neuts (auto) 9.5 H, Absolute Lymphs (auto) 1.81, Nucleated RBC % 0, Sodium 141, Potassium 3.5, Chloride 114 H, Carbon Dioxide 22.0, Anion Gap 5, BUN 21 H, Creatinine 1.54 H, Estim Creat Clear Calc 30.37, Est GFR (MDRD) Af Amer 42 L, Est GFR (MDRD) Non-Af 35 L, BUN/Creatinine Ratio 13.6, Glucose 97, Calcium 9.2 Radiography Diagnostic Testing: Radiology Impression Brain MRI 01/09/24 16:07 IMPRESSION: 1. Focal acute ischemic change of the superomedial portion of the left cerebellum. 2. Chronic microvascular changes. Electronically Signed: Clifford Yuen MD at 16:24 EDT , ADDENDUM: 01/10/24 1645 IMPRESSION: 1. Focal acute ischemic change of the superomedial portion of the left cerebellum. 2. Chronic microvascular changes. N.B. : The above Results were Read Back by Clifford Yuen MD to Cassie Smith RN, and understanding confirmed on 01/10/2024 16:38:38 (ET). Electronically Signed: Clifford Yuen MD at 16:24 EDT , Physical Exam Narrative General: Alert, Oriented x2, Cooperative, No apparent distress HEENT: Atraumatic, PERRLA, EOMI, Normocephalic, no nystagmus Oral: Moist Mucosa Neck: Supple, No JVD Lungs: Clear to auscultation, Normal air movement, No rhonchi, No wheeze, No rales Cardiovascular: Regular rate, Regular Rhythm, Normal S1, Normal S2, No murmurs Abdomen: Soft, Non Tender, Non-Distended, No Hepato-splenomegaly Extremities: No edema, Capillary Refill Less than 3 Seconds Skin: No rashes, No breakdown Musculoskeletal: No Tenderness to Palpation of Joints or Extremities Neurological: Chronic dysarthria and some left hand weakness but upper extremities and lower extremities appear to be 5 out of 5. Sensations intact. She did have a previous stroke, chronic tremor Psych/Mental Status: Normal Affect, Appropriate Assessment & Plan Assessment/Plan (1) Vertigo: PLAN: Plan 1. Left cerebellar CVA with generalized weakness and inability to complete ADLs/history of previous CVA ? Symptoms appear to be improving though she is generally weak ? PT/OT ? Creatinine today is 1.6 to baseline is around 1.3, will start her on some IV fluids ?Will consult neurology ? Continue with Plavix, and start her on Lipitor ? Echo pending 2. Essential HTN ? Continue with Norvasc ? Will monitor make adjustments as necessary ? Blood pressure stable 3. CKD 3B ? Started on IV fluids and monitor ? Avoid nephrotoxic agents DVT: SCDs Charges/Coding Visit Charges Inpatient E&M: 79440 Subs Hosp L2
[2024-01-11 13:00] VITALS: BP 143/74; PULSE 99; RESP 18; TEMP 36.8; O2SAT 96
[2024-01-11] MEDS: Menthol/Lanolin/Calamine/Znox 113 GM Tube 1 APPLIC TOPICAL ×2 (14:04→21:19)
[2024-01-11 14:55] LABS: Thyroid Stim Hormone (TSH) 0.707 uIU/mL (0.358-3.740)
--- NOTE | 2024-01-11 15:02 | CASEMGMT ---
Patient was accepted in the Rehab Unit pending some tests. Cristina HO
--- NOTE | 2024-01-11 15:44 | CHAPLAIN ---
Type of Pastoral Visit _x__ Initial Visit ___ Follow-up Visit ___ On-call Visit ___ General Patient Visit ___ Spiritual Assessment ___ Family Conference ___ Bereavement ___ Rapid Response ___ Code Blue ___ Other (describe below) Pastoral Care Referral From _x__ Patient ___ Family ___ Nurse ___ Physician ___ Casing Sewer ___ Building Principal ___ Other (describe below) Sacrament/Intervention _x__ Active listening ___ Anointing ___ Lutheran ___ Bereavement ___ Communion ___ Lucía exploration ___ ___ Life review _x__ Prayer ___ Reconciliation ___ Sacrament of Sick _x__ Supportive presence ___ Wedding ___ Other (describe below) Pastoral Comments patient is sitting up in the chair and appears to be napping but is easily awakened by her name; pt starts to talk about being fine but finding out that she has had three strokes recently that I didn't even know about; 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
[2024-01-11 17:00] VITALS: BP 142/76; PULSE 111; RESP 16; TEMP 37.8; O2SAT 97
[2024-01-11 20:00] VITALS: BP 154/78; PULSE 112; RESP 18; TEMP 36.8; O2SAT 93
[2024-01-11] MEDS: Atorvastatin Calcium 80 MG Tablet PO (21:17)
[2024-01-11] MEDS: 0.9% Saline Lock 10 ML Syringe IV (21:32)
[2024-01-12] VITALS (7 sets, daily range): BP systolic 107–176; BP diastolic 60–86; PULSE 97–110; RESP 15–18; TEMP 36.4–36.8; O2SAT 94–99
[2024-01-12 05:49] LABS: Absolute Lymphocyte Count 0.96 X10^3/uL (0.83-4.51); Absolute Neutrophil Count 22.2 X10^3/uL (2.0-7.7); Basophil# 0.06 X10^3/uL; Basophil% 0.2 % (0-1); Hematocrit 43.1 % (37-47); Hemoglobin 14.1 g/dL (12.0-15.0); Lymphocyte # 0.96 X10^3/ul (0.83-4.51); Lymphocyte % 3.9 % (19-41); Mean Corp Hgb Conc 32.7 g/dL (32-36); Mean Corpuscular Hgb 30.3 pg (27.0-32.0); Mean Corpuscular Volume 92.7 fL (81-99); Mean Platelet Vol. 12.1 fl (6.2-12.0); Monocyte# 1.47 X10^3/uL; Monocyte% 5.9 % (0-10); NRBC Flagged by Analyzer 0 % (0-5); Neutrophil # 22.23 X10^3/uL (2.7-7.7); Neutrophil % 89.6 % (47-70); POSITIVE DIFFERENTIAL YES; Platelet Count 161 K/mm3 (150-450); RBC Distribution Width CV 12.5 % (11.6-14.6); RBC Distribution Width SD 42.8 fl (35.1-43.9); Red Blood Count 4.65 M/mm3 (4.2-5.4); White Blood Count 24.8 K/mm3 (4.4-11.0)
[2024-01-12 06:01] LABS: Differential Indicated SCAN CRITERIA MET
[2024-01-12] MEDS: Arthritis Pain Compound 60 CLICK TUBE TOPICAL ×3 (06:05→21:07)
[2024-01-12] MEDS: Menthol/Lanolin/Calamine/Znox 113 GM Tube 1 APPLIC TOPICAL ×3 (06:05→21:06)
[2024-01-12 06:59] LABS: Differential Comment SCANNED
[2024-01-12 07:04] LABS: ALB/GLOB Ratio 1.1 RATIO (0.9-2.4); AST(SGOT) 24 U/L (15-37); Alanine Aminotransfer ALT/SGPT 28 U/L (13-56); Albumin, Serum 3.6 g/dL (3.2-5.0); Alkaline Phosphatase 67 U/L (45-117); Anion Gap 7 (5-15); BUN 24 mg/dL (7-18); BUN/Creat Ratio 11.5 RATIO (10-20); Calcium,Total 9.3 mg/dL (8.5-10.1); Chloride 116 mmol/L (98-107); Creatinine, Serum 2.08 mg/dL (0.55-1.02); EST Glomerular Filtration Rate 24 mL/min (>60); Est Glom Filt Rate - Afr Amer 30 mL/min (>60); Estimated Creatinine Clearance 22.49 ml/min; Globulin 3.4 g/dL (2.2-4.2); Glucose 162 mg/dL (74-106); Potassium 3.8 mmol/L (3.5-5.1); Sodium Level 141 mmol/L (136-145)
--- NOTE | 2024-01-12 08:53 | CASEMGMT ---
Patient is not ready for discharge today due to increased WBC and fever. SW notified Leandra in Rehab. Cristina Stauffer [employer] [place]
--- NOTE | 2024-01-12 10:12 | PN.HOSP_ITS ---
Subjective Subjective Denies any burning with urination however does have some suprapubic tenderness to palpation he has a little bit of a temp yesterday afternoon Objective Data Objective Data Vital Signs: Vital Signs Temp Pulse Resp BP Pulse Ox O2 Del Method 98.2 F 110 H 18 146/86 H 96 Room Air 01/12/24 09:37 01/12/24 09:37 01/12/24 09:37 01/12/24 09:37 01/12/24 09:37 01/12/24 09:37 Oxygen Delivery Method Room Air Weight: 153 lb 14.122 oz Body Mass Index (BMI) 23.3 Intake & Output: Intake and Output for Last 24 Hours 01/11/24 01/12/24 01/13/24 03:59 03:59 03:59 Intake Total 620 / 620 1728.75 / 1728.75 508.75 / 508.75 Output Total 350 / 350 200 / 200 150 / 150 Balance 270 / 270 1528.75 / 1528.75 358.75 / 358.75 Lab / Micro Data 01/12/24 04:15 01/12/24 04:15 Labs: Laboratory Results - last 24 hr 01/11/24 03:20: Hemoglobin A1c 5.0, TSH 0.707 01/12/24 04:15: WBC 24.8 H, RBC 4.65, Hgb 14.1, Hct 43.1, MCV 92.7, MCH 30.3, MCHC 32.7, RDW Std Deviation 42.8, RDW Coeff of Joy 12.5, Plt Count 161, MPV 12.1 H, Immature Gran % (Auto) 0.400, Neut % (Auto) 89.6 H, Lymph % (Auto) 3.9 L , [place] % (Auto) 5.9, Eos % (Auto) 0.0, Baso % (Auto) 0.2, Absolute Neuts (auto) 22.2 H, Absolute Lymphs (auto) 0.96, Nucleated RBC % 0, Differential Comment SCANNED, Sodium 141, Potassium 3.8, Chloride 116 H, Carbon Dioxide 18.0 L, Anion Gap 7, BUN 24 H, Creatinine 2.08 H, Estim Creat Clear Calc 22.49, Est GFR (MDRD) Af Amer 30 L, Est GFR (MDRD) Non-Af 24 L, BUN/Creatinine Ratio 11.5, Glucose 162 H, Calcium 9.3, Total Bilirubin 1.60 H, AST 24, ALT 28, Alkaline Phosphatase 67, Total Protein 7.0, Albumin 3.6, Globulin 3.4, Albumin/Globulin Ratio 1.1 Radiography Diagnostic Testing: Radiology Impression Echocardiogram 01/10/24 16:34 Interpretation Summary The left ventricular ejection fraction is 55 %. Normal LV size. Small pericardial effusion. Pericardial effusion measures 1.4 cm in the largest dimension. There is a small amount of fibrinous material also noted on the right ventricular surface. In comparison to the previous does not appear to be worse. Ordering Physician: Farooq Pagan Referring Physician: Erna Encarnacion M.D. Performed By: Estrella Tadeo RDCS Physical Exam Narrative General: Alert, Oriented x2, Cooperative, No apparent distress HEENT: Atraumatic, PERRLA, EOMI, Normocephalic, no nystagmus Oral: Moist Mucosa Neck: Supple, No JVD Lungs: Clear to auscultation, Normal air movement, No rhonchi, No wheeze, No rales Cardiovascular: Regular rate, Regular Rhythm, Normal S1, Normal S2, No murmurs Abdomen: Soft, suprapubic tenderness to palpation, Non-Distended, No Hepato- splenomegaly Extremities: No edema, Capillary Refill Less than 3 Seconds Skin: No rashes, No breakdown Musculoskeletal: No Tenderness to Palpation of Joints or Extremities Neurological: Chronic dysarthria and some left hand weakness but upper extremities and lower extremities appear to be 5 out of 5. Sensations intact. She did have a previous stroke Psych/Mental Status: Normal Affect, Appropriate Assessment & Plan Assessment/Plan (1) Vertigo: PLAN: Plan 1. Left cerebellar CVA with generalized weakness and inability to complete ADLs/history of previous CVA ? Symptoms appear to be improving though she is generally weak ? PT/OT ?Creatinine jumped to 2.08 ?Will consult neurology ? Continue with Plavix, and start her on Lipitor ? Echo EF of 55% with small pericardial effusion 2. Essential HTN ? Continue with Norvasc ? Will monitor make adjustments as necessary ? Blood pressure stable 3. CKD 3B ? Started on IV fluids and monitor ? Avoid nephrotoxic agents 4. Leukocytosis with suprapubic abdominal pain ? Will obtain a urinalysis for possible UTI will wait for empiric antibiotics until after the urinalysis has been collected DVT: SCDs Charges/Coding Visit Charges Inpatient E&M: 58704 Subs Hosp L2
--- NOTE | 2024-01-12 10:57 | CASEMGMT ---
REINA met with patient's , Stanford. Introduced self and role at [facility]. REINA let Stanford know that [facility] Acute Rehab has accepted patient. Plan: d/c to [facility] Acute Rehab Unit when medically ready. Cristina HO
[2024-01-12] MEDS: Ondansetron 4 MG/2 ML Vial IV (11:16)
[2024-01-12] MEDS: 0.9% Saline Lock 10 ML Syringe IV (11:16)
[2024-01-12] MEDS: Clopidogrel Bisulfate 75 MG Tablet PO (12:45)
[2024-01-12] MEDS: Citalopram 10 MG Tablet 30 MG PO (12:45)
[2024-01-12] MEDS: amLODIPine 5 MG Tablet PO (12:45)
[2024-01-12] MEDS: Meclizine 12.5 MG Tablet PO (12:52)
--- NOTE | 2024-01-12 15:08 | STROKE.CONS ---
Assessment and Plan: Stroke Assessment/Plan TODD MADRID is a 78 F with a history of NSVT CKD who presents for evaluation of vertigo. Neurological examination shows NIH 2. Ataxia. Neuroimaging shows L cerebellar. h/o BL infarcts. Has a loop recorder. - Anti-platelet medication: ASA 81 mg bassam. Would DC plavix as can increase risk of bleeds in elderly. - Occupational/ Physical therapy consults - NPO until swallow evaluation. IVF until able to take po - DVT prophylaxis with SCDs and heparin SQ - Vascular risk factor modification. The following are the recommended guidelines: LDL Goal < 70 - lipitor 80 Smoking Cessation Diabetes Management penitentiary blood pressure control should achieve <130/80 mmHg. BP management should aim to achieve middle or intermediate school principal contorl in a reasonable amount of time, taking into consideration the individual patient's requirements and characteristics. Weight Management: Goal for BMI is 18.5 -24.9 kg/m2 Alcohol: No more than 2 drinks/day for men or 1 drink/day for non- women - Promote lifestyle modification: weight control, physical activity, moderation of alcohol intake, moderate sodium intake. - [facility] - follow up with sleep. CPAP Followup with PCP in 1-2 weeks, and in Neurology clinic in 6-12 weeks HPI Consult Data Date of Consult: 01/12/24 HPI Narrative HPI Narrative: TODD MADRID, is a 78 F who presents [facility] Medical History (Updated 01/09/24 @ 15:[address] Shanta Wilburn MD) Fall Dysarthria CVA (cerebral vascular accident) NSVT (nonsustained ventricular tachycardia) CVA (cerebral vascular accident) Status post placement of implantable loop recorder (~09/18/19) Tubulovillous adenoma of colon Occult blood in stools Essential (primary) hypertension Parasomnia Allergic rhinitis CKD (chronic kidney disease) stage 3, GFR 30-59 ml/min Dysthymia Vitamin D deficiency Osteopenia Anxiety Recurrent major depressive disorder, in full remission Hyperlipidemia Asthma SABRINA (obstructive sleep apnea) Home Medications ?Medication ?Instructions ?Recorded ?Last Taken ?Type cholecalciferol (vitamin D3) 25 1,000 unit PO BID supplement 08/29/16 06/16/21 History mcg (1,000 unit) capsule amlodipine 5 mg tablet 5 mg PO DAILY BP 06/16/21 06/16/21 History clopidogrel 75 mg tablet (Plavix) 75 mg PO DAILY #30 tabs 03/31/22 Unknown Rx clonazepam 0.5 mg tablet 1.5 mg PO QHS 11/12/21 Unknown History citalopram 20 mg tablet 30 mg PO DAILY 01/09/24 Unknown History colestipol 1 gram tablet 1 g PO BID 01/09/24 Unknown History Allergy/AdvReac Type Severity Reaction Status Date / Time No Known Allergies Allergy Verified 11/15/21 12:27 Family History Mother Emphysema lung Brother Cancer Kidney Stomach ulcer Father Cancer Bladder Aunt CVA (cerebral vascular accident) Surgical History History of cholecystectomy History of hysterectomy Social History household members: spouse housing: house Smoking Status: Never smoker second hand exposure: Yes alcohol intake: never substance use type: does not use caffeine: No what type of physical activity do you participate in: none Vital Signs Vital Signs Vital Signs: 01/11/24 17:00 01/11/24 20:00 01/11/24 22:00 Temperature 100.1 F H 98.2 F Temperature Source Oral Oral Pulse Rate 111 H 112 H Pulse Strength Normal (2+) Respiratory Rate 16 18 Respiratory Effort Respiratory Depth Respiratory Pattern Blood Pressure 142/76 H 154/78 H Blood Pressure Mean 98 103 Blood Pressure Source Monitor Monitor Blood Pressure Position Semi-Fowlers Semi-Fowlers Blood Pressure Location Right Arm Right Arm Pulse Ox 97 93 Oxygen Delivery Method Room Air Room Air 01/11/24 22:00 01/12/24 03:00 01/12/24 03:23 Temperature 97.9 F Temperature Source Oral Pulse Rate 107 H Pulse Strength Respiratory Rate 16 Respiratory Effort Normal Normal Respiratory Depth Normal Normal Respiratory Pattern Normal Normal Blood Pressure 176/83 H Blood Pressure Mean 114 Blood Pressure Source Monitor Blood Pressure Position Semi-Fowlers Blood Pressure Location Right Arm Pulse Ox 94 Oxygen Delivery Method Room Air Room Air Room Air 01/12/24 09:37 01/12/24 12:36 Temperature 98.2 F 97.6 F L Temperature Source Oral Oral Pulse Rate 110 H 105 H Pulse Strength Respiratory Rate 18 18 Respiratory Effort Respiratory Depth Respiratory Pattern Blood Pressure 146/86 H 133/69 H Blood Pressure Mean 106 90 Blood Pressure Source Monitor Monitor Blood Pressure Position Semi-Fowlers Semi-Fowlers Blood Pressure Location Right Arm Right Arm Pulse Ox 96 95 Oxygen Delivery Method Room Air Room Air Weight Weight: 69.8 kg Body Mass Index (BMI) 23.3 EEG Results Procedure Details EEG Procedure Details: TODD MADRID is a 78 year old F with a past medical history of , who presents for evaluation of Electroencephalogram on DATE at TIME NIHSS NIHSS Nursing Documentation NIHSS Nursing Documentation: NIHSS: Ischemic Stroke/TIA Start: 01/10/24 16:48 Freq: 1700 Status: Complete Protocol: Activity Type Activity Date Activity User E-sign Co-sign Detail Recorded Client Recorded Date Recorded By Document 01/11/24 17:00 [id number] 01/11/24 17:02 01/11/24 17:00 NIH Stroke Scale [NIHSS] A score of 0 is normal or asymptomatic . Total possible score is 42. Inpatient: RN or Physician to activate a stroke alert for onset of new stroke symptoms or with NIHSS increase >/= 3 points. Following change in neurological status, NIHSS will be performed per physician order or more frequently PRN. -1a. Level of Consciousness Alert; keenly responsive -1b. LOC Questions Answers BOTH questions correctly. -1c. LOC Commands Performs both tasks correctly . -2. Best Gaze Normal -3. Visual No visual loss -4. Facial Palsy Normal symmetrical movements -5a. Left Arm No drift; arm holds 90 (or 45 ) degrees for full 10 seconds -5b. Right Arm No drift; arm holds 90 (or 45 ) degrees for full 10 seconds -6a. Left Leg No drift; leg holds 30-degree position for full 5 seconds -6b. Right Leg No drift; leg holds 30-degree position for full 5 seconds -7. Limb Ataxia Present in 1 limb -8. Sensory Normal; no sensory loss -9. Best Language No aphasia; normal -10. Dysarthria Mild-to- moderate dysarthria; -11. Extinction and Inattention No abnormality -Total 2 Query Text:A score of 0 is normal or asymptomatic. Total possible score is 42 . ED: Notify Physician for NIHSS increase by > / = 3 points. Inpatient: RN or Physician to activate a stroke alert for NIHSS increase of > / = 3 points. Coma Scale [Assess] -Eye Opening Spontaneous -Motor Obeys Commands -Verbal Oriented [Total] -Coma Scale Total 15 Lab / Micro Data 01/12/24 04:15 01/12/24 04:15 Labs: Laboratory Results - last 24 hr 01/12/24 04:15: WBC 24.8 H, RBC 4.65, Hgb 14.1, Hct 43.1, MCV 92.7, MCH 30.3, MCHC 32.7, RDW Std Deviation 42.8, RDW Coeff of Joy 12.5, Plt Count 161, MPV 12.1 H, Immature Gran % (Auto) 0.400, Neut % (Auto) 89.6 H, Lymph % (Auto) 3.9 L, [place] % (Auto) 5.9, Eos % (Auto) 0.0, Baso % (Auto) 0.2, Absolute Neuts (auto) 22.2 H, Absolute Lymphs (auto) 0.96, Nucleated RBC % 0, Differential Comment SCANNED, Sodium 141, Potassium 3.8, Chloride 116 H, Carbon Dioxide 18.0 L, Anion Gap 7, BUN 24 H, Creatinine 2.08 H, Estim Creat Clear Calc 22.49, Est GFR (MDRD) Af Amer 30 L, Est GFR (MDRD) Non-Af 24 L, BUN/Creatinine Ratio 11.5, Glucose 162 H, Calcium 9.3, Total Bilirubin 1.60 H, AST 24, ALT 28, Alkaline Phosphatase 67, Total Protein 7.0, Albumin 3.6, Globulin 3.4, Albumin/Globulin Ratio 1.1 Active Medications Active Medications Active Medications: Current Medications Generic Name Dose Route Start Last Admin Trade Name Freq PRN Reason Stop Dose Admin Acetaminophen 650 mg 01/09/24 16:07 Acetaminophen 325 Mg Tablet PO Q6H PRN PRN Pain 1-10 Or Fever >100.7 Albuterol Sulfate 2.5 mg 01/09/24 16:07 Albuterol 2.5 Mg/3 Ml Vial.Neb. INHALATION Q2H PRN PRN SOB &/OR WHEEZING Amlodipine Besylate 5 mg 01/10/24 10:00 01/12/24 12:45 Amlodipine 5 Mg Tablet PO 5 mg DAILY MICHAEL Administration Protocol Atorvastatin Calcium 80 mg 01/10/24 22:00 01/11/24 21:17 Atorvastatin Calcium 80 Mg Tablet PO 80 mg QHS MICHAEL Administration Calamine/Phenol 1 applic 01/11/24 14:00 01/12/24 06:05 Menthol/Lanolin/Calamine/Znox 113 Gm Tube TOPICAL 1 applic TID [facility] Administration Protocol Citalopram Hydrobromide 30 mg 01/10/24 10:00 01/12/24 12:45 Citalopram 10 Mg Tablet PO 30 mg DAILY MICHAEL Administration Clonazepam 0.25 mg 01/09/24 16:07 Clonazepam 0.5 Mg Tablet PO QHS PRN anxiety/sleep Clopidogrel Bisulfate 75 mg 01/10/24 10:00 01/12/24 12:45 Clopidogrel Bisulfate 75 Mg Tablet PO 75 mg DAILY MICHAEL Administration Colestipol HCl 1 gm 01/09/24 22:00 01/12/24 13:02 Colestipol 1 Gm Tablet PO Not Given BID MICHAEL Compound Med 0 click 01/09/24 22:00 01/12/24 06:05 Arthritis Pain Compound 60 Click Tube TOPICAL 2 click TID [facility] Administration Protocol Meclizine HCl 12.5 mg 01/09/24 16:07 01/12/24 12:52 Meclizine 12.5 Mg Tablet PO 12.5 mg TID PRN PRN Administration VERTIGO Melatonin 3 mg 01/09/24 16:07 Melatonin 3 Mg Tablet PO QHS PRN PRN INSOMNIA Ondansetron HCl 4 mg 01/12/24 09:51 01/12/24 11:16 Ondansetron 4 Mg/2 Ml Vial IV 4 mg Q8H PRN PRN Administration NAUSEA Senna/Docusate Sodium 2 tablet 01/09/24 16:07 Senna/Docusate Sodium 1 Tablet PO BID PRN PRN Constipation Sodium Chloride 10 - 40 ml 01/09/24 16:22 01/12/24 11:16 0.9% Saline Lock 10 Ml Syringe IV 10 ml UD PRN Administration SALINE FLUSH
[2024-01-12 16:48] LABS: Squamous Epithelial Cells - UA 0 SEEN /hpf (5-10)
[2024-01-12 16:51] LABS: Color, Urine Straw (Yellow); Glucose, Dipstick Normal (Normal); Ketone-Dipstick Negative (Negative); Leukocyte Esterase-Dipstick 500 /ul (Negative); Nitrite-Dipstick Positive (Negative); Occult Blood-Urine 250 /ul (Negative); Protein-Dipstick 100 mg/dl (Negative); Urine Bilirubin Dipstick Negative (Negative); Urine Clarity Cloudy (Clear); Urine Urobilinogen Normal (Normal)
--- NOTE | 2024-01-12 16:51 | US_ITS ---
INDICATION: urinary retention EXAMINATION: Ultrasound US Kidney(s) complete (eg, kidneys and bladder) TECHNIQUE: Cooper scale and color doppler images were obtained of the kidneys. COMPARISON: FINDINGS: RIGHT KIDNEY: 9.0 x 4.3 x 4.7 cm. The cortex is 15 mm. There is no hydronephrosis. 3 mm lower pole calculus. 10 mm cyst. No perinephric collection is demonstrated. LEFT KIDNEY: 9.3 x 4.4 x 3.6 cm. The cortex is 10 mm. There is no hydronephrosis. No shadowing calculus, focal lesion or perinephric collection is demonstrated. URINARY BLADDER: Jim catheter in place. It has a volume of 90 cc during imaging. There is a hyperechoic area posteriorly within the urinary bladder. Whether this is artifactual requires further evaluation. Correlate with CT if needed. US/Kidney and Bladder IMPRESSION: Right renal cysts and nonobstructive stone. Questionable posterior hyperechoic area in the bladder versus artifact. Electronically Signed: Chinmay Giordano DO at 20:23 EDT ,
--- NOTE | 2024-01-12 16:55 | CON.PCM_ITS ---
Assessment & Plan Assessment/Plan (1) Urinary retention: PLAN: Continue Jim catheter at least 1 week Aggressive management of any constipation Given the acute CVA, the evaluation and management of her urinary dysfunction will likely take some time and she may require an extended period of time with a Jim catheter. Okay from my standpoint to be discharged to the rehab or extended care facility with Jim to straight drain Renal ultrasound (2) Urinary tract infection: PLAN: Urine culture and antibiotics to start today and change as appropriate (3) CVA (cerebral vascular accident): PLAN: Continue plan per hospitalist and neurology team HPI Consult Data Date of Consult: 01/12/24 HPI Narrative Reason for Consultation: Urinary retention HPI Narrative: TODD MADRID, is a 78 F who is in the PCU for an acute CVA. She had an elevation of her white blood count today and an attempt was made for urinalysis finding that she had a postvoid residual of over [address] hospitalist did place a Jim catheter and it is draining purulent urine. The patient is very drowsy and not coherently talkative at this point. Per nursing staff she has been awake almost nonstop for 2 days. No family is at bedside. I will obtain further urologic history at another time. After reviewing her CT scan from 2 years ago, she has bilateral atrophic kidneys with scarring consistent with previous episodes of pyelonephritis or possible vascular accidents. Also with a right renal stone present 2 years ago, nonobstructing. [facility] Medical History (Updated 01/12/24 @ 17:[address] Jeanne Verduzco MD) Urinary tract infection Urinary retention Fall Dysarthria CVA (cerebral vascular accident) NSVT (nonsustained ventricular tachycardia) CVA (cerebral vascular accident) Status post placement of implantable loop recorder (~09/18/19) Tubulovillous adenoma of colon Occult blood in stools Essential (primary) hypertension Parasomnia Allergic rhinitis CKD (chronic kidney disease) stage 3, GFR 30-59 ml/min Dysthymia Vitamin D deficiency Osteopenia Anxiety Recurrent major depressive disorder, in full remission Hyperlipidemia Asthma SABRINA (obstructive sleep apnea) Home Medications ?Medication ?Instructions ?Recorded ?Last Taken ?Type cholecalciferol (vitamin D3) 25 1,000 unit PO BID supplement 08/29/16 06/16/21 History mcg (1,000 unit) capsule amlodipine 5 mg tablet 5 mg PO DAILY BP 06/16/21 06/16/21 History clopidogrel 75 mg tablet (Plavix) 75 mg PO DAILY #30 tabs 06/17/21 Unknown Rx clonazepam 0.5 mg tablet 1.5 mg PO QHS 11/12/21 Unknown History citalopram 20 mg tablet 30 mg PO DAILY 01/09/24 Unknown History colestipol 1 gram tablet 1 g PO BID 01/09/24 Unknown History Allergy/AdvReac Type Severity Reaction Status Date / Time No Known Allergies Allergy Verified 11/15/21 12:27 Family History Mother Emphysema lung Brother Cancer Kidney Stomach ulcer Father Cancer Bladder Aunt CVA (cerebral vascular accident) Surgical History History of cholecystectomy History of hysterectomy Social History household members: spouse housing: house Smoking Status: Never smoker second hand exposure: Yes alcohol intake: never substance use type: does not use caffeine: No what type of physical activity do you participate in: none ROS Review of Systems ROS Unobtainable: due to mental condition Physical Exam Const General Appearance: comfortable, lethargic and frail Exam Limitations: altered mental status HEENT normocephalic, head/scalp atraumatic, external ears normal, external nose normal and moist oral mucous membranes Eyes General Eye: normal appearance of both eyes Neck General: normal visual inspection and trachea midline Chest inspection of chest normal Chest: symmetrical chest wall rise Resp normal respiratory effort and normal air movement Cardio regular rate GI soft to palpation and non-distended GI Narrative: Diffuse mild tenderness Narrative: Urine is draining in Jim catheter, purulent Skin no jaundice and no petechiae Lab / Micro Data 01/12/24 04:15 01/12/24 04:15 Labs: Laboratory Results - last 24 hr 01/12/24 04:15: WBC 24.8 H, RBC 4.65, Hgb 14.1, Hct 43.1, MCV 92.7, MCH 30.3, MCHC 32.7, RDW Std Deviation 42.8, RDW Coeff of Joy 12.5, Plt Count 161, MPV 12.1 H, Immature Gran % (Auto) 0.400, Neut % (Auto) 89.6 H, Lymph % (Auto) 3.9 L , [place] % (Auto) 5.9, Eos % (Auto) 0.0, Baso % (Auto) 0.2, Absolute Neuts (auto) 22.2 H, Absolute Lymphs (auto) 0.96, Nucleated RBC % 0, Differential Comment SCANNED, Sodium 141, Potassium 3.8, Chloride 116 H, Carbon Dioxide 18.0 L, Anion Gap 7, BUN 24 H, Creatinine 2.08 H, Estim Creat Clear Calc 22.49, Est GFR (MDRD) Af Amer 30 L, Est GFR (MDRD) Non-Af 24 L, BUN/Creatinine Ratio 11.5, Glucose 162 H, Calcium 9.3, Total Bilirubin 1.60 H, AST 24, ALT 28, Alkaline Phosphatase 67, Total Protein 7.0, Albumin 3.6, Globulin 3.4, Albumin/Globulin Ratio 1.1 01/12/24 15:02: Urine Color Straw, Urine Clarity Cloudy, Urine pH 8.0, Ur Specific [place] 1.010, Urine Protein 100 H, Urine Glucose (UA) Normal, Urine Ketones Negative, Urine Occult Blood 250 H, Urine Nitrite Positive H, Urine Bilirubin Negative, Urine Urobilinogen Normal, Ur Leukocyte Esterase 500 H
[2024-01-12 17:04] LABS: Bacteria 2+ /hpf (None Seen); Mucous, Urine 1+ /hpf (<or=2+); Red Blood Cells-Urine 5-10 SEEN /hpf (0-5); White Blood Cells 25-50 SEEN /hpf (0-5); White Cell Cast 5-10 SEEN /lpf (None Seen)
[2024-01-12] MEDS: Ceftriaxone 1 GM/50 ML BAG IV (21:06)
[2024-01-12] MEDS: Acetaminophen 325 MG Tablet 650 MG PO (21:07)
[2024-01-12] MEDS: Atorvastatin Calcium 80 MG Tablet PO (21:07)
[2024-01-12] MEDS: Colestipol 1 GM TABLET PO (21:07)
[2024-01-13 03:11] VITALS: BP 116/61; PULSE 108; RESP 17; TEMP 36.5; O2SAT 94
[2024-01-13 05:36] LABS: Absolute Lymphocyte Count 1.44 X10^3/uL (0.83-4.51); Absolute Neutrophil Count 16.4 X10^3/uL (2.0-7.7); Basophil# 0.04 X10^3/uL; Basophil% 0.2 % (0-1); Eosinophil# 0.03 X10^3/uL; Eosinophils% 0.2 % (0-5); Hematocrit 39.7 % (37-47); Hemoglobin 12.8 g/dL (12.0-15.0); Lymphocyte # 1.44 X10^3/ul (0.83-4.51); Lymphocyte % 7.3 % (19-41); Mean Corp Hgb Conc 32.2 g/dL (32-36); Mean Corpuscular Hgb 29.9 pg (27.0-32.0); Mean Corpuscular Volume 92.8 fL (81-99); Mean Platelet Vol. 12.5 fl (6.2-12.0); Monocyte# 1.57 X10^3/uL; NRBC Flagged by Analyzer 0 % (0-5); Neutrophil # 16.44 X10^3/uL (2.7-7.7); Neutrophil % 83.8 % (47-70); POSITIVE DIFFERENTIAL YES; Platelet Count 170 K/mm3 (150-450); RBC Distribution Width CV 12.8 % (11.6-14.6); RBC Distribution Width SD 43.8 fl (35.1-43.9); Red Blood Count 4.28 M/mm3 (4.2-5.4); White Blood Count 19.6 K/mm3 (4.4-11.0)
[2024-01-13 05:42] LABS: Differential Indicated SCAN CRITERIA MET
[2024-01-13] MEDS: Menthol/Lanolin/Calamine/Znox 113 GM Tube 1 APPLIC TOPICAL ×3 (05:49→20:57)
[2024-01-13] MEDS: Arthritis Pain Compound 60 CLICK TUBE TOPICAL ×3 (05:49→20:58)
[2024-01-13 06:13] LABS: Anion Gap 7 (5-15); BUN 46 mg/dL (7-18); BUN/Creat Ratio 15.1 RATIO (10-20); Chloride 116 mmol/L (98-107); Creatinine, Serum 3.05 mg/dL (0.55-1.02); EST Glomerular Filtration Rate 16 mL/min (>60); Est Glom Filt Rate - Afr Amer 19 mL/min (>60); Estimated Creatinine Clearance 15.33 ml/min; Glucose 136 mg/dL (74-106); Potassium 3.8 mmol/L (3.5-5.1); Sodium Level 141 mmol/L (136-145)
[2024-01-13 06:41] LABS: Differential Comment SCANNED
[2024-01-13] MEDS: 0.9% Normal Saline (1000mL) 1,000 ML 100 ML IV (07:06)
[2024-01-13] MEDS: Aspirin 81 MG TAB.CHEW PO (08:08)
[2024-01-13 08:13] VITALS: BP 146/107; PULSE 104; RESP 16; TEMP 36.8; O2SAT 94
--- NOTE | 2024-01-13 09:08 | PCM.PN.HOSP ---
Reason for Visit Reason for Visit: Diagnoses Cerebral infarction, unspecified (01/10/24) Urinary tract infection, site not specified (01/10/24) Retention of urine, unspecified (01/10/24) Dizziness and giddiness (01/10/24) Subjective Subjective Patient is a 78-year-old lady admitted with ataxia imaging studies demonstrated left cerebellar CVA. Hospital stay complicated by acute cystitis as well as acute kidney injury Objective Data Objective Data Vital Signs: Vital Signs Temp Pulse Resp BP Pulse Ox O2 Del Method 98.2 F 104 H 16 146/107 H 94 Room Air 01/13/24 08:13 01/13/24 08:13 01/13/24 08:13 01/13/24 08:13 01/13/24 08:13 01/13/24 08:13 Oxygen Delivery Method Room Air Weight: 69.8 kg Body Mass Index (BMI) 23.3 Intake & Output: Intake and Output for Last 24 Hours 01/11/24 01/12/24 01/13/24 23:59 23:59 23:59 Intake Total 1728.75 / 1848.75 678.75 / 678.75 Output Total 250 / 450 1999 Balance 1478.75 / 1398.75 -1321.25 / -1321.25 Lab / Micro Data 01/13/24 04:07 01/13/24 04:07 Labs: Laboratory Results - last 24 hr 01/12/24 15:02: Urine Color Straw, Urine Clarity Cloudy, Urine pH 8.0, Ur Specific [place] 1.010, Urine Protein 100 H, Urine Glucose (UA) Normal, Urine Ketones Negative, Urine Occult Blood 250 H, Urine Nitrite Positive H, Urine Bilirubin Negative, Urine Urobilinogen Normal, Ur Leukocyte Esterase 500 H, Urine RBC 5-10 SEEN, Urine WBC 25-50 SEEN, Ur Squamous Epith Cells 0 SEEN, Urine Bacteria 2+, WBC Casts 5-10 SEEN, Urine Mucus 1+ 01/13/24 04:07: WBC 19.6 H, RBC 4.28, Hgb 12.8, Hct 39.7, MCV 92.8, MCH 29.9, MCHC 32.2, RDW Std Deviation 43.8, RDW Coeff of Joy 12.8, Plt Count 170, MPV 12.5 H, Immature Gran % (Auto) 0.500, Neut % (Auto) 83.8 H, Lymph % (Auto) 7.3 L, [place] % (Auto) 8.0, Eos % (Auto) 0.2, Baso % (Auto) 0.2, Absolute Neuts (auto) 16.4 H, Absolute Lymphs (auto) 1.44, Nucleated RBC % 0, Differential Comment SCANNED, Diff Path Review July, Sodium 141, Potassium 3.8, Chloride 116 H, Carbon Dioxide 18.0 L, Anion Gap 7, BUN 46 H, Creatinine 3.05 H, Estim Creat Clear Calc 15.33, Est GFR (MDRD) Af Amer 19 L, Est GFR (MDRD) Non-Af 16 L, BUN/Creatinine Ratio 15.1, Glucose 136 H, Calcium 9.0 Radiography Diagnostic Testing: Radiology Impression Renal Ultrasound 01/12/24 16:51 IMPRESSION: Right renal cysts and nonobstructive stone. Questionable posterior hyperechoic area in the bladder versus artifact. Electronically Signed: Chinmay Giordano DO at 20:23 EDT Reading Location ID and State: [facility] / [place] Tel [phone], Service support , Physical Exam Narrative GENERAL: cooperative HEENT: Atraumatic; normocephalic EYES; Anicteric, Normal Conjunctiva NECK; supple, normal thyroid, RESPIRATORY: Diminished to auscultation CARDIOVASCULAR: Regular S1 S2, GI: soft, normoactive bowel sounds, : No Renal angle tenderness; EXTREMITIES: No edema, no clubbing, MUSCULOSKELETAL: no muscle wasting NEURO: Awake; dysarthric SKIN: No Rash PSYCH; Flat affect Assessment & Plan Assessment/Plan (1) Vertigo: PLAN: Plan Patient is a 78-year-old lady admitted with ataxia imaging studies demonstrated left cerebellar CVA. Hospital stay complicated by acute cystitis as well as acute kidney injury 1. Acute left cerebellar CVA ? Admitted to monitored bed managed guideline directed management including antiplatelet therapy PT OT with consult placed to neurology. Plan is for patient to be discharged to a long term facility when medically stable 2. Acute cystitis ? Patient started on ceftriaxone urine cultures sent 3. Hypertension ? Blood pressure controlled, home medications continued with dose adjustment as needed 4. Acute kidney injury superimposed on CKD 3 ? Creatinine on admission was 1.53 patient creatinine as of today 3.05. Renal ultrasound right renal cysts and nonobstructive stone. Questionable posterior hyperechoic area in the bladder versus artifact. Patient started on IV fluids consultation placed to nephrology 5. Obstructive sleep apnea ? Consistent use of CPAP encouraged 6. Depression with anxiety ? Patient is on citalopram as well as clonazepam continue 7. DVT prophylaxis ? On enoxaparin Time spent in the patient's overall evaluation,decision-making process, review of diagnostic data, adjustment of management, discussion with other providers, nursing nursing and ancillary staff involved in patient's care documentation, 50 Minutes Charges/Coding Visit Charges Inpatient E&M: [id number] [facility] L[facility]
[2024-01-13] MEDS: Ceftriaxone 1 GM/50 ML BAG IV (10:12)
[2024-01-13] MEDS: amLODIPine 5 MG Tablet PO (10:13)
[2024-01-13] MEDS: Colestipol 1 GM TABLET PO ×2 (10:13→20:58)
[2024-01-13] MEDS: Citalopram 10 MG Tablet 30 MG PO (10:13)
--- NOTE | 2024-01-13 11:48 | STROKE.PNOTE ---
Objective Data Objective Data Vital Signs: Vital Signs Temp Pulse Resp BP Pulse Ox O2 Del Method 98.2 F 104 H 16 146/107 H 94 Room Air 01/13/24 08:13 01/13/24 08:13 01/13/24 08:13 01/13/24 08:13 01/13/24 08:13 01/13/24 09:19 Oxygen Delivery Method Room Air Weight: 69.8 kg Body Mass Index (BMI) 23.3 Intake & Output: Intake and Output for Last 24 Hours 01/11/24 01/12/24 01/13/24 23:59 23:59 23:59 Intake Total 1728.75 / 1848.75 678.75 / 678.75 50 / 50 Output Total 250 / 450 1999 / 1999 Balance 1478.75 / 1398.75 -1321.25 / -1321.25 50 / 50 Lab / Micro Data 01/13/24 04:07 01/13/24 04:07 Labs: Laboratory Results - last 24 hr 01/12/24 15:02: Urine Color Straw, Urine Clarity Cloudy, Urine pH 8.0, Ur Specific [place] 1.010, Urine Protein 100 H, Urine Glucose (UA) Normal, Urine Ketones Negative, Urine Occult Blood 250 H, Urine Nitrite Positive H, Urine Bilirubin Negative, Urine Urobilinogen Normal, Ur Leukocyte Esterase 500 H, Urine RBC 5-10 SEEN, Urine WBC 25-50 SEEN, Ur Squamous Epith Cells 0 SEEN, Urine Bacteria 2+, WBC Casts 5-10 SEEN, Urine Mucus 1+ 01/13/24 04:07: WBC 19.6 H, RBC 4.28, Hgb 12.8, Hct 39.7, MCV 92.8, MCH 29.9, MCHC 32.2, RDW Std Deviation 43.8, RDW Coeff of Joy 12.8, Plt Count 170, MPV 12.5 H, Immature Gran % (Auto) 0.500, Neut % (Auto) 83.8 H, Lymph % (Auto) 7.3 L, [place] % (Auto) 8.0, Eos % (Auto) 0.2, Baso % (Auto) 0.2, Absolute Neuts (auto) 16.4 H, Absolute Lymphs (auto) 1.44, Nucleated RBC % 0, Differential Comment SCANNED, Diff Path Review May foll, Sodium 141, Potassium 3.8, Chloride 116 H, Carbon Dioxide 18.0 L, Anion Gap 7, BUN 46 H, Creatinine 3.05 H, Estim Creat Clear Calc 15.33, Est GFR (MDRD) Af Amer 19 L, Est GFR (MDRD) Non-Af 16 L, BUN/Creatinine Ratio 15.1, Glucose 136 H, Calcium 9.0 Micro: Microbiology 01/12/24 15:00 Urine Catheter - Jim Urine Culture - Preliminary Gram negative lucero Radiography Diagnostic Testing: Radiology Impression Renal Ultrasound 01/12/24 16:51 IMPRESSION: Right renal cysts and nonobstructive stone. Questionable posterior hyperechoic area in the bladder versus artifact. Electronically Signed: Chinmay Giordano DO at 20:23 EDT Reading Location ID and State: [facility] / [place] Tel [phone], Service support , Physical Exam Neuro Neuro Narrative: Neurological?examination: General: The patient appears nutritionally appropriate, well-groomed, and appears comfortable in no acute distress. Mental Status: ?The patient?s mental status was slightly sleepy but cooperative. ?Language was intact. ?Cranial nerves: ?No visual complains, and extra-ocular motion was intact. Face motion symmetric. Tongue was midline with normal movement. ?There was no dysarthria. Motor: Normal strength in all four extremities. No pronator drift. Sensation: Intact light touch bilaterally, no extinction. ?Coordination: ?Bilateral finger to nose was normal. ?There was no dysmetria. Gait: ?deferred Subject: Neurology Subjective at bedside, feels patient better today, more alert. Patient not complaining of dizziness today. Assessment and Plan: Stroke Assessment/Plan TODD MADRID is a 78 F with a history of HTN, HL, prior ischemic stroke (2018, 2021) on plavix who presents with vertigo, slurred speech. Seen at [facility] 01/09/24. CT brain negative. She was admitted. MRI brain shows acute left cerebellar infarct. TTE EF 55%.LDL 112. HgbA1c 5.0. She is on Asa, lipitor. She is being treated for UTI and urinary retention. She has a LINQ that was placed in 2019 after her first stroke, which reports is non-functioning. ASSESSMENT/PLAN: Acute left cerebellar ischemic stroke 1) Stroke work-up completed. 2) reports they prefer plavix (they have alot of meds at home). Therefore recommend changing aspirin back to plavix due to patient family preference. Continue lipitor. 3) Follow-up in outpatient neurology clinic. 30 day event monitor on discharge. Recommend having LINQ removed since non-functioning (can be done as outpatient). Will sign off. Please call us back with any stroke related questions. Primary team messaged on backline with these recommendations.
[2024-01-13 12:00] VITALS: BP 122/83; PULSE 110; RESP 17; TEMP 36.9; O2SAT 97
[2024-01-13 16:00] VITALS: BP 146/73; PULSE 82; RESP 16; TEMP 36.7; O2SAT 94
--- NOTE | 2024-01-13 19:00 | PCM.PN.BLA ---
Progress Note Nephrology plan of care. Full consultation to follow. Chart is extensively reviewed. The patient is a 78-year-old female with past history of prior ischemic stroke (2018 and 2021), hypertension, SABRINA, and ventricular tachycardia, and major depressive disorder. The patient also has history of CKD stage G3b. The most recent serum creatinine prior to this admission from 10/24/2023 was 1.38 mg/dL, estimated GFR 39 mL/min. The patient presented to the hospital on 01/09/2024 after being found down on the floor by her . Patient also, slurred speech and vertigo. She was subsequently diagnosed with MRI with left cerebellar infarct. The patient is also being treated for UTI Nephrology is asked to see the patient because of REBECCA on CKD. Serum creatinine has increased from 1.54 mg/dL on 01/11/2024 up to 3.05 mg/dL today. There has been no prolonged hypotension since admission. She has not oliguric. Oxygen saturation is 94% on room air. Patient is being volume expanded with IV fluid. She is currently not on diuretic or RAAS chelsea. There is no need for kidney replacement therapy on my review tonight. Current medications are reviewed and are appropriate dose for her renal function. Will recheck renal function, vital status, acid-base and electrolytes again tomorrow. Anoop Aguayo MD
[2024-01-13] MEDS: Atorvastatin Calcium 80 MG Tablet PO (20:58)
[2024-01-13 22:00] VITALS: BP 146/67; PULSE 100; RESP 18; TEMP 37.2; O2SAT 96
[2024-01-14 04:00] VITALS: BP 145/73; PULSE 95; RESP 18; TEMP 37.2; O2SAT 97
[2024-01-14] MEDS: Menthol/Lanolin/Calamine/Znox 113 GM Tube 1 APPLIC TOPICAL (05:40)
[2024-01-14] MEDS: Arthritis Pain Compound 60 CLICK TUBE TOPICAL (05:40)
[2024-01-14 06:49] LABS: Absolute Lymphocyte Count 0.98 X10^3/uL (0.83-4.51); Absolute Neutrophil Count 12.7 X10^3/uL (2.0-7.7); Basophil# 0.04 X10^3/uL; Basophil% 0.3 % (0-1); Eosinophil# 0.11 X10^3/uL; Eosinophils% 0.7 % (0-5); Hematocrit 33.8 % (37-47); Hemoglobin 11.2 g/dL (12.0-15.0); Lymphocyte # 0.98 X10^3/ul (0.83-4.51); Lymphocyte % 6.5 % (19-41); Mean Corp Hgb Conc 33.1 g/dL (32-36); Mean Corpuscular Hgb 31.1 pg (27.0-32.0); Mean Corpuscular Volume 93.9 fL (81-99); Mean Platelet Vol. 12.7 fl (6.2-12.0); Monocyte# 1.13 X10^3/uL; Monocyte% 7.5 % (0-10); NRBC Flagged by Analyzer 0 % (0-5); Neutrophil # 12.74 X10^3/uL (2.7-7.7); Neutrophil % 84.1 % (47-70); Platelet Count 154 K/mm3 (150-450); RBC Distribution Width CV 12.6 % (11.6-14.6); RBC Distribution Width SD 43.4 fl (35.1-43.9); White Blood Count 15.1 K/mm3 (4.4-11.0)
[2024-01-14 07:12] LABS: Anion Gap 6 (5-15); BUN 43 mg/dL (7-18); Calcium,Total 8.6 mg/dL (8.5-10.1); Chloride 119 mmol/L (98-107); Creatinine, Serum 1.72 mg/dL (0.55-1.02); EST Glomerular Filtration Rate 30 mL/min (>60); Est Glom Filt Rate - Afr Amer 37 mL/min (>60); Estimated Creatinine Clearance 27.19 ml/min; Glucose 102 mg/dL (74-106); Magnesium 2.2 mg/dL (1.6-2.6); Phosphorus 2.7 mg/dL (2.5-4.9); Potassium 3.5 mmol/L (3.5-5.1); Sodium Level 143 mmol/L (136-145)
[2024-01-14 07:17] LABS: Urine Sodium 20 mmol/L (Not Establ.)
--- NOTE | 2024-01-14 07:38 | PN.HOSP_ITS ---
Reason for Visit Reason for Visit: Diagnoses Cerebral infarction, unspecified (01/10/24) Urinary tract infection, site not specified (01/10/24) Retention of urine, unspecified (01/10/24) Dizziness and giddiness (01/10/24) Subjective Subjective Patient urine cultures positive for Proteus mirabilis. On appropriate antibiotic Objective Data Objective Data Vital Signs: Vital Signs Temp Pulse Resp BP Pulse Ox O2 Del Method 99.0 F 95 18 145/73 H 97 Room Air 01/14/24 04:00 01/14/24 04:00 01/14/24 04:00 01/14/24 04:00 01/14/24 04:00 01/14/24 04:00 Oxygen Delivery Method Room Air Weight: 69.8 kg Body Mass Index (BMI) 23.3 Intake & Output: Intake and Output for Last 24 Hours 01/12/24 01/13/24 01/14/24 23:59 23:59 23:59 Intake Total 678.75 / 678.75 1650 / 1650 Output Total 1999 925 / 925 Balance -1321.25 / -1321.25 725 / 725 Lab / Micro Data 01/14/24 04:59 01/14/24 04:59 Labs: Laboratory Results - last 24 hr 01/13/24 21:10: Ur Random Sodium 20, Urine Creatinine 117.00 01/14/24 04:59: WBC 15.1 H, RBC 3.60 L, Hgb 11.2 L, Hct 33.8 L, MCV 93.9, MCH 31.1, MCHC 33.1, RDW Std Deviation 43.4, RDW Coeff of Joy 12.6, Plt Count 154, M PV 12.7 H, Immature Gran % (Auto) 0.900, Neut % (Auto) 84.1 H, Lymph % (Auto) 6.5 L, [place] % (Auto) 7.5, Eos % (Auto) 0.7, Baso % (Auto) 0.3, Absolute Neuts (auto) 12.7 H, Absolute Lymphs (auto) 0.98, Nucleated RBC % 0, Sodium 143, Potassium 3.5, Chloride 119 H, Carbon Dioxide 18.0 L, Anion Gap 6, BUN 43 H, C reatinine 1.72 H, Estim Creat Clear Calc 27.19, Est GFR (MDRD) Af Amer 37 L, Est GFR (MDRD) Non-Af 30 L, BUN/Creatinine Ratio 25.0 H, Glucose 102, Calcium 8.6, Phosphorus 2.7, Magnesium 2.2 Micro: Microbiology 01/12/24 15:00 Urine Catheter - Jim Urine Culture - Final Proteus mirabilis Physical Exam Narrative GENERAL: cooperative HEENT: Atraumatic; normocephalic EYES; Anicteric, Normal Conjunctiva NECK; supple, normal thyroid, RESPIRATORY: Diminished to auscultation CARDIOVASCULAR: Regular S1 S2, GI: soft, normoactive bowel sounds, : No Renal angle tenderness; EXTREMITIES: No edema, no clubbing, MUSCULOSKELETAL: no muscle wasting NEURO: Awake; dysarthric SKIN: No Rash PSYCH; Flat affect Assessment & Plan Assessment/Plan (1) Vertigo: PLAN: Plan Patient is a 78-year-old lady admitted with ataxia imaging studies demonstrated left cerebellar CVA. Hospital stay complicated by acute cystitis as well as acute kidney injury 1. Acute left cerebellar CVA ? Admitted to monitored bed managed guideline directed management including antiplatelet therapy PT OT with consult placed to neurology. Plan is for patient to be discharged to a senior living facility when medically stable 2. Acute cystitis with Proteus mirabilis ? Patient started on ceftriaxone urine cultures sent ? 01/14/2024; urine cultures came back positive Proteus mirabilis. On appropriate antibiotic 3. Hypertension ? Blood pressure controlled, home medications continued with dose adjustment as needed 4. Acute kidney injury superimposed on CKD 3 ? Creatinine on admission was 1.53 patient creatinine as of today 3.05. Renal ultrasound right renal cysts and nonobstructive stone. Questionable posterior hyperechoic area in the bladder versus artifact. Patient started on IV fluids consultation placed to nephrology 5. Obstructive sleep apnea ? Consistent use of CPAP encouraged 6. Depression with anxiety ? Patient is on citalopram as well as clonazepam continue 7. DVT prophylaxis ? On enoxaparin Time spent in the patient's overall evaluation,decision-making process, review of diagnostic data, adjustment of management, discussion with other providers, nursing nursing and ancillary staff involved in patient's care documentation, 36 Minutes
--- NOTE | 2024-01-14 08:07 | CON.PCM.RE_ITS ---
Assessment & Plan Assessment/Plan (1) REBECCA (acute kidney injury): (2) CKD (chronic kidney disease) stage 3, GFR 30-59 ml/min: PLAN: Plan Impression/Plan: The patient is a 78-year-old female with past history of prior ischemic stroke (2018 and 2021), hypertension, SABRINA, and ventricular tachycardia, and major depressive disorder. The patient also has history of CKD stage G3b. The patient is admitted to the hospital on 01/09/2024 and was found to have stroke. Nephrology is following because of REBECCA on CKD. Acute kidney injury on chronic kidney disease stage G3b. The patient has underlying CKD. The most recent serum creatinine prior to this admission from 10/24/2023 was 1.38 mg/dL, EGFR 39 mL/min. Serum creatinine increased to 3.05 mg/dL on 01/13/2024. I suspect that the patient had prerenal REBECCA as renal function has markedly improved with volume expansion. Serum creatinine is down to 1.72 mg/dL today. Since patient is stable hemodynamically, I do not think that patient needs further IV fluid today. Continue keep MAP above 65 mmHg. Encourage patient to push oral intake on her own today. There is no need for kidney replacement therapy. Recheck renal function, volume status, acid-base and electrolytes again tomorrow. HPI Consult Data Date of Consult: 01/14/24 HPI Narrative Reason for Consultation: REBECCA on CKD HPI Narrative: The patient is a 78-year-old female with past history of prior ischemic stroke (2018 and 2021), hypertension, SABRINA, and ventricular tachycardia, and major depressive disorder. The patient also has history of CKD stage G3b. The most recent serum creatinine prior to this admission from 10/24/2023 was 1.38 mg/dL, estimated GFR 39 mL/min. The patient presented to the hospital on 01/09/2024 after being found down on the floor by her . Patient also, slurred speech and vertigo. She was subsequently diagnosed with MRI with left cerebellar infarct. The patient is also being treated for UTI Nephrology is asked to see the patient because of REBECCA on CKD. Serum creatinine has increased from 1.54 mg/dL on 01/11/2024 up to 3.05 mg/dL on 01/13/2024. There has been no prolonged hypotension since admission. She has not oliguric. Oxygen saturation is 97% on room air. The patient denies current chest pain, dyspnea, nausea or vomiting. There has been no diarrhea. She has not been exposed to IV contrast during this admission. [facility] Medical History (Updated 01/14/24 @ 08:[address] Katia Aguayo MD) Urinary tract infection Urinary retention Fall Dysarthria CVA (cerebral vascular accident) NSVT (nonsustained ventricular tachycardia) CVA (cerebral vascular accident) Status post placement of implantable loop recorder (~09/18/19) Tubulovillous adenoma of colon Occult blood in stools Essential (primary) hypertension Parasomnia Allergic rhinitis CKD (chronic kidney disease) stage 3, GFR 30-59 ml/min Dysthymia Vitamin D deficiency Osteopenia Anxiety Recurrent major depressive disorder, in full remission Hyperlipidemia Asthma SABRINA (obstructive sleep apnea) Home Medications ?Medication ?Instructions ?Recorded ?Last Taken ?Type cholecalciferol (vitamin D3) 25 1,000 unit PO BID supplement 08/29/16 06/16/21 History mcg (1,000 unit) capsule amlodipine 5 mg tablet 5 mg PO DAILY BP 06/16/21 06/16/21 History clopidogrel 75 mg tablet (Plavix) 75 mg PO DAILY #30 tabs 06/17/21 Unknown Rx clonazepam 0.5 mg tablet 1.5 mg PO QHS 11/12/21 Unknown History citalopram 20 mg tablet 30 mg PO DAILY 01/09/24 Unknown History colestipol 1 gram tablet 1 g PO BID 01/09/24 Unknown History Allergy/AdvReac Type Severity Reaction Status Date / Time No Known Allergies Allergy Verified 11/15/21 12:27 Family History Mother Emphysema lung Brother Cancer Kidney Stomach ulcer Father Cancer Bladder Aunt CVA (cerebral vascular accident) Surgical History History of cholecystectomy History of hysterectomy Social History household members: spouse housing: house Smoking Status: Never smoker second hand exposure: Yes alcohol intake: never substance use type: does not use caffeine: No what type of physical activity do you participate in: none ROS ROS Narrative As per HPI, otherwise noncontributory Physical Exam Narrative General: Alert and oriented x3, NAD. She is dysarthric HEENT: Normocephalic, atraumatic. Mucous membrane on the dry side without erythema. PERRLA, EOMI. Hearing is intact. Neck: Supple, no JVD. Trachea is midline. No thyromegaly or lymphadenopathy. Cardiovascular: Normal S1, S2. No rubs, murmurs, or gallops. Respiratory: Lungs are clear to auscultation bilaterally. No wheezing, rhonchi, or rales. Abdomen: Normal bowel sounds, soft, nontender, no guarding or rebound, no organomegaly. Extremities: No clubbing, cyanosis, or edema. Musculoskeletal: Full passive range of motion, no joint swelling. Psychiatric: Normal mood and affect. Skin: Warm and dry, no rash. Lab / Micro Data 01/14/24 04:59 01/14/24 04:59 Labs: Laboratory Results - last 24 hr 01/13/24 21:10: Ur Random Sodium 20, Urine Creatinine 117.00 01/14/24 04:59: WBC 15.1 H, RBC 3.60 L, Hgb 11.2 L, Hct 33.8 L, MCV 93.9, MCH 31.1, MCHC 33.1, RDW Std Deviation 43.4, RDW Coeff of Joy 12.6, Plt Count 154, M PV 12.7 H, Immature Gran % (Auto) 0.900, Neut % (Auto) 84.1 H, Lymph % (Auto) 6.5 L, [place] % (Auto) 7.5, Eos % (Auto) 0.7, Baso % (Auto) 0.3, Absolute Neuts (auto) 12.7 H, Absolute Lymphs (auto) 0.98, Nucleated RBC % 0, Sodium 143, Potassium 3.5, Chloride 119 H, Carbon Dioxide 18.0 L, Anion Gap 6, BUN 43 H, C reatinine 1.72 H, Estim Creat Clear Calc 27.19, Est GFR (MDRD) Af Amer 37 L, Est GFR (MDRD) Non-Af 30 L, BUN/Creatinine Ratio 25.0 H, Glucose 102, Calcium 8.6, Phosphorus 2.7, Magnesium 2.2 Micro: Microbiology 01/12/24 15:00 Urine Catheter - Jim Urine Culture - Final Proteus mirabilis
[2024-01-14] MEDS: Aspirin 81 MG TAB.CHEW PO (08:41)
--- NOTE | 2024-01-14 09:01 | PCM.DC.SUM ---
Providers Date of Admission: 01/10/24 Date of Discharge: 01/14/24 Primary Care Physician: Dr. Erna Encarnacion MD Consultations 01/10/24 16:32 Consult: Tele-Neurology Routine Consulting Provider: [facility] Reason for Consult: CVA EMERGENT Consult: No Notified: Yes Date Notified: 01/10/24 Time Notified: 17:02 Method of Notification: Answering Service Nursing Unit Staff Notify [facility] of Tele-Neurology Consult: Yes 01/12/24 18:56 Consult: Urology Routine Consulting Provider: Jeanne Verduzco Reason for Consult: retention EMERGENT Consult: No MD Notified: Yes Date Notified: 01/12/24 Time Notified: 18:57 Method of Notification: phone 01/13/24 10:00 Consult: Nephrology Routine Consulting Provider: Brice Morfin Reason for Consult: REBECCA EMERGENT Consult: No MD Notified: Yes Date Notified: 01/13/24 Time Notified: 10:08 Method of Notification: Answering Service Reason For Visit: VERTIGO Diagnosis Discharge Diagnosis (1) Vertigo: Status: Acute Code(s): R42 - Dizziness and giddiness Plan Patient is a 78-year-old lady admitted with ataxia imaging studies demonstrated left cerebellar CVA. Hospital stay complicated by acute cystitis as well as acute kidney injury 1. Acute left cerebellar CVA ? Admitted to monitored bed managed guideline directed management including antiplatelet therapy PT OT with consult placed to neurology. Plan is for patient to be discharged to a [facility] facility when medically stable ? [facility]14[facility]2024; [facility] with a 30-day event monitor. Neurology also recommended discharging only on Plavix per patient's family request 2. Acute cystitis with Proteus mirabilis ? Patient started on ceftriaxone urine cultures sent ? 01/14/2024; urine cultures came back positive Proteus mirabilis. On appropriate antibiotic. Discharged on ciprofloxacin 500 mg p.o. twice daily for 5 3. Hypertension ? Blood pressure controlled, home medications continued with dose adjustment as needed 4. Acute kidney injury superimposed on CKD 3 ? Creatinine on admission was 1.53 patient creatinine as of today 3.05. Renal ultrasound right renal cysts and nonobstructive stone. Questionable posterior hyperechoic area in the bladder versus artifact. Patient started on IV fluids consultation placed to nephrology 5. Obstructive sleep apnea ? Consistent use of CPAP encouraged 6. Depression with anxiety ? Patient is on citalopram as well as clonazepam continue 7. DVT prophylaxis ? On enoxaparin Time spent in the patient's overall evaluation,decision-making process, review of diagnostic data, adjustment of management, discussion with other providers, nursing nursing and ancillary staff involved in patient's care documentation, 36 Minutes Medications at Discharge Home Medications cholecalciferol (vitamin D3) 25 mcg (1,000 unit) capsule 1,000 unit PO BID supplement 08/29/16 amlodipine 5 mg tablet 5 mg PO DAILY BP 06/16/21 clopidogrel 75 mg tablet (Plavix) 75 mg PO DAILY #30 tabs 06/17/21 clonazepam 0.5 mg tablet 1.5 mg PO QHS 11/12/21 citalopram 20 mg tablet 30 mg PO DAILY 01/09/24 colestipol 1 gram tablet 1 g PO BID 01/09/24 atorvastatin 80 mg tablet 80 mg PO QHS #0 tabs 01/14/24 ciprofloxacin HCl 500 mg tablet 500 mg PO BID #10 tabs 01/14/24 meclizine 12.5 mg tablet 12.5 mg PO TID PRN PRN Vertigo #0 tabs 01/14/24 melatonin 3 mg tablet 3 mg PO QHS PRN PRN Insomnia #0 tabs 01/14/24 sennosides 8.6 mg-docusate sodium 50 mg tablet (Stimulant Laxative Plus) 2 tab PO BID PRN PRN Constipation #0 tabs 01/14/24 Physical Exam Narrative GENERAL: cooperative HEENT: Atraumatic; normocephalic EYES; Anicteric, Normal Conjunctiva NECK; supple, normal thyroid, RESPIRATORY: Diminished to auscultation CARDIOVASCULAR: Regular S1 S2, GI: soft, normoactive bowel sounds, : No Renal angle tenderness; EXTREMITIES: No edema, no clubbing, MUSCULOSKELETAL: no muscle wasting NEURO: Awake; dysarthric SKIN: No Rash PSYCH; Flat affect Weight / BMI Weight Weight: 69.8 kg Body Mass Index (BMI) 23.3 ABG / Lab / Microbiology Data 01/14/24 04:59 01/14/24 04:59 Laboratory: Laboratory Results - last 24 hr 01/13/24 21:10: Ur Random Sodium 20, Urine Creatinine 117.00 01/14/24 04:59: WBC 15.1 H, RBC 3.60 L, Hgb 11.2 L, Hct 33.8 L, MCV 93.9, MCH 31.1, MCHC 33.1, RDW Std Deviation 43.4, RDW Coeff of Joy 12.6, Plt Count 154, MPV 12.7 H, Immature Gran % (Auto) 0.900, Neut % (Auto) 84.1 H, Lymph % (Auto) 6.5 L, [place] % (Auto) 7.5, Eos % (Auto) 0.7, Baso % (Auto) 0.3, Absolute Neuts (auto) 12.7 H, Absolute Lymphs (auto) 0.98, Nucleated RBC % 0, Sodium 143, Potassium 3.5, Chloride 119 H, Carbon Dioxide 18.0 L, Anion Gap 6, BUN 43 H, Creatinine 1.72 H, Estim Creat Clear Calc 27.19, Est GFR (MDRD) Af Amer 37 L, Est GFR (MDRD) Non-Af 30 L, BUN/Creatinine Ratio 25.0 H, Glucose 102, Calcium 8.6, Phosphorus 2.7, Magnesium 2.2 Microbiology: Microbiology 01/12/24 15:00 Urine Catheter - Jim Urine Culture - Final Proteus mirabilis D/C Instructions Discharge Diet: No restrictions Discharge Activity: Return to Normal Activity Call your doctor if you observe: Fever of 101 or Higher, Shortness of breath, Fainting spells and Chest pain Meaningful Use Info Meaningful Use Meaningful Use Diagnoses (Choose all that apply): Ischemic CVA CVA Therapy Assessed for PT,OT and/or ST?: Yes Ischemic Stroke Antithrombotic order at d/c?: Yes Dx of Atrial fib/flutter?: No Statin Dosing Therapy Reference: STATIN DOSE THERAPY REFERENCE: * Patients > 75 years receive moderate or high dose statin therapy. * Patients 75 years or YOUNGER should receive HIGH intensity statin dose unless contraindicated. You will be required to document reason for non-treatment if statin daily dose does not meet guidelines. HIGH DOSE STATIN THERAPY DAILY Atorvastatin > than or = to 40 mg Rosuvastatin > than or = to 20 mg Amlodipine + Atorvastatin > than or = to 2.5/40 mg Ezetimibe + Simvastatin 10/80 mg Simvastatin 80mg Statins at discharge?: Yes Primary Dx Acute Ischemic CVA?: Yes IV thrombolytic ordered during stay?: No Reason IV thrombolytic not ordered: Treatment not Indicated Discharge Plan Admission Admit Date/Time: 01/10/24 16:35 Attending Provider: Herrera Lindsay Primary Care Provider: Erna Encarnacion Consulting Providers: Shanta Wilburn; Jeanne Verduzco; Farooq Pagan; Brice Morfin Discharge Orders/Prescriptions Prescriptions: New atorvastatin 80 mg Tablet 80 mg PO QHS Qty: 0 0RF sennosides-docusate sodium [Stimulant Laxative Plus] 8.6-50 mg Tablet 2 tab PO BID PRN PRN (Reason: Constipation) Qty: 0 0RF meclizine 12.5 mg Tablet 12.5 mg PO TID PRN PRN (Reason: Vertigo) Qty: 0 0RF melatonin 3 mg Tablet 3 mg PO QHS PRN PRN (Reason: Insomnia) Qty: 0 0RF ciprofloxacin HCl 500 mg tablet 500 mg PO BID Qty: 10 0RF Continued cholecalciferol (vitamin D3) 1,000 UNIT capsule 1,000 unit PO BID amlodipine 5 mg tablet 5 mg PO DAILY Patient Comments: TAKE 1 TABLET BY MOUTH ONCE DAILY clopidogrel [Plavix] 75 mg tablet 75 mg PO DAILY Qty: 30 1RF clonazepam 0.5 mg tablet 1.5 mg PO QHS Patient Comments: TAKE 3 TABLETS BY MOUTH ONCE DAILY AT BEDTIME citalopram 20 mg tablet 30 mg PO DAILY colestipol 1 gram tablet 1 g PO BID Other Ambulatory Orders: 30 Day Event Recorder Preventi (Urgent) Timeframe: 1 Day Facility: [facility] - Location: Cardiovascular Services Ordered By: Dr. Herrera Lindsay 30 Day Event Recorder Preventi (Urgent) Timeframe: 1 Day Facility: [facility] - Location: Cardiovascular Services Ordered By: Dr. Herrera Lindsay Referrals / Follow Up: Erna Encarnacion MD [Primary Care Provider] - Disposition Disposition (needs filled in before D/C Order can be placed): Inpatient Rehab Unit/Facility Charges/Coding Visit Charges Inpatient E&M: 25998 Disch Hosp >30min
[2024-01-14 10:00] VITALS: BP 141/71; PULSE 82; RESP 18; TEMP 36.6; O2SAT 97
[2024-01-14] MEDS: Citalopram 10 MG Tablet 30 MG PO (10:19)
[2024-01-14] MEDS: amLODIPine 5 MG Tablet PO (10:19)
[2024-01-14] MEDS: Colestipol 1 GM TABLET PO (10:19)
[2024-01-14] MEDS: 0.9% Saline Lock 10 ML Syringe IV (11:00)
[2024-01-14] MEDS: Ceftriaxone 1 GM/50 ML BAG IV (11:02)
--- NOTE | 2024-01-14 11:40 | NURSING ---
1140 report called to Rehab-discharge to Rehab. Neil Dong RN
[2024-01-14 11:44] VITALS: BP 140/69; PULSE 80; RESP 18; TEMP 36.6; O2SAT 97
[2024-01-15 14:14] LABS: Pathologist Review Reviewed
== END 2024-01-14 12:44 | DRG 64 ==
LOC: ED 10:05 → PCU 15:19
PROVIDERS: Family Medicine; Internal Medicine Nephrology; Admitting Provider Internal Medicine; Emergency Provider Emergency Medicine; PCP Internal Medicine; Visit Provider Internal Medicine
DX: I63.542 Cerebral infarction due to unspecified occlusion or stenosis of left cerebellar artery (principal); A41.9 Sepsis, unspecified organism; R65.11 Systemic inflammatory response syndrome (SIRS) of non-infectious origin with acute organ dysfunction; G81.94 Hemiplegia, unspecified affecting left nondominant side; N17.9 Acute kidney failure, unspecified; N30.00 Acute cystitis without hematuria; N18.32 Chronic kidney disease, stage 3b; I12.9 Hypertensive chronic kidney disease with stage 1 through stage 4 chronic kidney disease, or unspecified chronic kidney disease; I69.322 Dysarthria following cerebral infarction; G47.33 Obstructive sleep apnea (adult) (pediatric); E78.5 Hyperlipidemia, unspecified; F41.8 Other specified anxiety disorders; Z79.02 Long term (current) use of antithrombotics/antiplatelets; B96.4 Proteus (mirabilis) (morganii) as the cause of diseases classified elsewhere
CPT/HCPCS: 36415; 70450; 70551; 71045; 73030; 76770; 80048; 80053; 80061; 81001; 82570; 83036; 83735; 84100; 84300; 84443; 85025; 87077; 87086; 87088; 87186; 93005; 93306; 97110; 97162; 97166; 97530; 97535; 99285; J7030; A4216; J2405

== ENCOUNTER 2024-01-14 12:56 | Inpatient (IN) | payer MEDICARE, OTHER, SELFPAY ==
[2024-01-14 13:37] VITALS: BP 153/62; PULSE 92; RESP 17; TEMP 36.3; O2SAT 97; BMI 22.8
--- NOTE | 2024-01-14 17:30 | NURSING ---
CREAM SEPARATOR OPERATOR found patient with santiago cath, balloon inflated on bed. Patient is pleasantly confused and could not tell the CREAM SEPARATOR OPERATOR what happened and not aware of it. Stat lock to thigh was also ripped off. This nurse attempted with a 16fr and 18fr kit and unable to advance in urethra at this time. Labia swelling and mild redness noted. This nurse will have night nurses attempt and Dr. Moss aware. Patient given multiple cues to also relax due to anxiety and at times uncooperative with positioning.
[2024-01-14] MEDS: Menthol/Lanolin/Calamine/Znox 113 GM Tube 1 APPLIC TOPICAL (17:35)
[2024-01-14] MEDS: Colestipol 1 GM TABLET PO (17:35)
[2024-01-14 18:00] VITALS: BP 126/62; PULSE 88; RESP 16; TEMP 37; O2SAT 97
[2024-01-14 19:16] VITALS: O2SAT 98
[2024-01-14] MEDS: clonazePAM 0.5 MG Tablet 1.5 MG PO (20:58)
[2024-01-14] MEDS: Senna/Docusate Sodium 1 Tablet 2 TABLET PO (20:59)
[2024-01-14] MEDS: Cholecalciferol (VIT D3) 25 MCG TABLET (1,000 UNITS) PO (20:59)
[2024-01-14] MEDS: Atorvastatin Calcium 80 MG Tablet PO (20:59)
[2024-01-14] MEDS: Acetaminophen 325 MG Tablet 650 MG PO (20:59)
[2024-01-15 05:14] VITALS: BP 139/69; PULSE 84; RESP 18; TEMP 36.6; O2SAT 96
[2024-01-15] MEDS: Menthol/Lanolin/Calamine/Znox 113 GM Tube 1 APPLIC TOPICAL ×3 (05:22→21:04)
[2024-01-15] MEDS: Colestipol 1 GM TABLET PO ×2 (05:22→16:46)
[2024-01-15 06:07] LABS: Hematocrit 35.4 % (37-47); Hemoglobin 11.8 g/dL (12.0-15.0); Mean Corp Hgb Conc 33.3 g/dL (32-36); Mean Corpuscular Hgb 30.9 pg (27.0-32.0); Mean Corpuscular Volume 92.7 fL (81-99); Mean Platelet Vol. 12.4 fl (6.2-12.0); Platelet Count 168 K/mm3 (150-450); RBC Distribution Width CV 12.3 % (11.6-14.6); RBC Distribution Width SD 41.9 fl (35.1-43.9); Red Blood Count 3.82 M/mm3 (4.2-5.4); White Blood Count 11.8 K/mm3 (4.4-11.0)
[2024-01-15] MEDS: Enoxaparin 40 MG/0.4 ML Syringe SC (06:48)
[2024-01-15 07:17] LABS: ALB/GLOB Ratio 0.8 RATIO (0.9-2.4); AST(SGOT) 56 U/L (15-37); Alanine Aminotransfer ALT/SGPT 51 U/L (13-56); Albumin, Serum 2.8 g/dL (3.2-5.0); Alkaline Phosphatase 96 U/L (45-117); Anion Gap 6 (5-15); BUN 32 mg/dL (7-18); BUN/Creat Ratio 23.7 RATIO (10-20); Calcium,Total 8.2 mg/dL (8.5-10.1); Chloride 117 mmol/L (98-107); Creatinine, Serum 1.35 mg/dL (0.55-1.02); EST Glomerular Filtration Rate 40 mL/min (>60); Est Glom Filt Rate - Afr Amer 49 mL/min (>60); Estimated Creatinine Clearance 34.65 ml/min; Globulin 3.3 g/dL (2.2-4.2); Glucose 106 mg/dL (74-106); Magnesium 2.3 mg/dL (1.6-2.6); Phosphorus 2.8 mg/dL (2.5-4.9); Potassium 3.4 mmol/L (3.5-5.1); Protein, Total 6.1 g/dL (6.4-8.2); Sodium Level 142 mmol/L (136-145)
[2024-01-15] MEDS: Citalopram 10 MG Tablet 30 MG PO (08:18)
[2024-01-15] MEDS: Senna/Docusate Sodium 1 Tablet 2 TABLET PO ×2 (08:18→21:02)
[2024-01-15] MEDS: Clopidogrel Bisulfate 75 MG Tablet PO (08:19)
[2024-01-15] MEDS: amLODIPine 5 MG Tablet PO (08:19)
[2024-01-15] MEDS: Ciprofloxacin 500 MG Tablet PO (08:19)
[2024-01-15] MEDS: Cholecalciferol (VIT D3) 25 MCG TABLET (1,000 UNITS) PO ×2 (08:19→21:01)
[2024-01-15 08:53] VITALS: O2SAT 97
--- NOTE | 2024-01-15 09:31 | HP.PCM_ITS ---
HPI - General General Date of Admission: 01/14/24 Date of Service: 01/15/24 Chief Complaint: Post stroke debility HPI Narrative Day #5 of appropriate antibiotics for treatment of urinary tract infection. TODD MADRID, is a 78-year-old F with a past medical history of CVA's in 2019 (had a loope recorder inserted at [facility]) and 2021 (R cerebellar) with residual L side weakness and mild dysarthria), nephrolithiasis, chronic kidney disease stage III b (CT scan in the past has showed bilateral atrophic kidneys with scarring), anxiety, parasomnia (he takes 1.5 mg of Klonopin at at bedtime), remote BPPV, allergic rhinitis, asthma, hypertension, hyperlipidemia, mild NPH (seen at [facility] main campus), nonsustained ventricular tachycardia, obstructive sleep apnea, osteopenia, current major depression (currently in remission) he, tubulovillous adenoma of the colon and vitamin D deficiency who presented to the ED at [facility] on 01/09/24 c/o dizziness/vertigo, nausea, mild ARMENDARIZ and vomiting of sudden onset. Stat NC CT brain showed no acute pathology and no hydrocephalus was reported. there was an old cerebellar infarct. CTA of the head and neck in 2021 showed a small right vertebral artery and atherosclerotic plaque calcification at the origin of both the right and left internal carotid arteries causing less than 50% stenosis. NIHSS was 1 for dysarthria which she has chronically. She could not ambulate and she was admitted to the hospitalist service for suspected peripheral vertigo. MRI of the brain was done on 01/08 and showed a focal acute ischemic change of the superomedial portion of the L cerebellum. A transthoracic echocardiogram showed normal left ventricular size with an ejection fraction of 55% and no regional wall motion abnormal both atria were of normal size. There was a pericardial effusion which was small and measured 1.4 cm in the largest dimension. There was no significant valvular heart disease. Bubble contrast study was not completed. She was continued on Plavix and Lipitor was ordered. Consult with neurology was ordered. Neurology recommended discontinuing Plavix and using aspirin 81 mg daily because Plavix is associated with increased bleeding in the elderly however the next neurologist that wrote a PN recommended changing back to Plavix from ASA because the family stated they had a lot of Plavix at home and did not want to change to ASA 81 mg daily. They also recommended 80 mg of Lipitor. A 30 day event monitor was recommended at [place] from the hospital. Complications during her stay in the hospital included urine retention (> 1200 cc) and acute on chronic renal failure. Creatinine increased from 1.53 at admission to the hospital to 3.05 on 01/13/2024). She was seen by Dr. Verduzco from urology and Dr. Bartlett from nephrology. Dr. Verduzco felt the urine retention was most likely related to the acute stroke and recommended maintaining Jim to continuous drainage. A UA on 01/12/2024 was positive for nitrite and showed 25-50 WBCs per high-power field with 2+ bacteria. Urine culture grew Proteus mirabilis, greater than 100,000 colonies, that was resistant to nitrofurantoin but sensitive to all other drugs tested. Dr. Bartlett felt the acute on CRF was related to pre-renal azotemia due to poor intake. She was started on IV fluids. The creatinine decreased appropriately with IV fluids and on 01/14/2024 was 1.72. 2824 it is 1.35. She has a mild metabolic acidosis with a stable serum bicarb at 19. She was transferred to the acute inpatient rehab unit at [facility] on 01/14/2024 for 3 hours of therapy daily to restore function/independence at or near her level prior to the most recent stroke. All lab drawn this morning was personally reviewed. White 8. Hemoglobin is also 11.8. MCV and MCH are both normal and the RDW was within normal limits. Platelets are within normal limits. Potassium is decreased to 3.4 today and the sodium is 142. Carbon is stable at 19 chloride is mildly increased at 117 which is stable. The BUN is 32 today with a creatinine of 1.35. Calcium corrected for hypoalbuminemia is within normal limits. Phosphorus and magnesium are normal. The Jim catheter became dislodged (I suspect she pulled the catheter out because nursing found it in the bed with the balloon up) but, was reinserted. Creat clearance prior to today was Less than 30 so the dose of Cipro was decreased to 500 mg once a day. Cipro was started on 01/14 24 and prior to that she had 3 doses of Rocephin IV. Afebrile Oral intake has been variable and has ranged from 25 to 74%. Blood pressure is ranged from 126/62 to 153/62 during her time on rehab. Heart rate is within normal limits Pulse ox is 96 to 98% on room air and she is not tachypneic. Nursing reports that she is confused and having cognitive dysfunction. Not able to follow instructions. When she had the stroke of the R cerebellum in 2021 her took her home 1 day after the stroke even though she was ataxic and said they would get OP therapy. At that time she was discharged on Lipitor 40 mg in 2021 but, she was only taking Colestipol at admission to the hospital recently. She was not on any Lipitor at presentation to the hospital in 2021 although she was discharged on Lipitor 40 from [facility] in 2019. I reviewed the note form 2022 about her sleep study.....she had memory loss at that time and she was only taking Klonopin 0.5 mg at HS and 20 mg of Citalopram. DX at that tome was primarily SABRINA with REM behavioral disorder and RLS. [facility] Medical History (Updated 01/16/24 @ 09:[address] Paula Moss, ) Anxiety and depression Urinary tract infection Urinary retention Fall Dysarthria CVA (cerebral vascular accident) NSVT (nonsustained ventricular tachycardia) Status post placement of implantable loop recorder (~09/18/19) Tubulovillous adenoma of colon Occult blood in stools Essential (primary) hypertension Parasomnia Allergic rhinitis CKD (chronic kidney disease) stage 3, GFR 30-59 ml/min Dysthymia Vitamin D deficiency Osteopenia Hyperlipidemia Asthma SABRINA (obstructive sleep apnea) Home Medications ?Medication ?Instructions ?Recorded ?Last Taken ?Type cholecalciferol (vitamin D3) 25 1,000 unit PO BID supplement 08/29/16 06/16/21 History mcg (1,000 unit) capsule amlodipine 5 mg tablet 5 mg PO DAILY BP 06/16/21 06/16/21 History clopidogrel 75 mg tablet (Plavix) 75 mg PO DAILY anti platelet #30 06/17/21 Unknown Rx tabs clonazepam 0.5 mg tablet 1.5 mg PO QHS anxiety 11/12/21 Unknown History citalopram 20 mg tablet 30 mg PO DAILY mental health 01/09/24 Unknown History colestipol 1 gram tablet 1 g PO BID cholesterol 01/09/24 Unknown History atorvastatin 80 mg tablet 80 mg PO QHS cholesterol #0 tabs 01/14/24 Unknown Rx ciprofloxacin HCl 500 mg tablet 500 mg PO BID atb #10 tabs 01/14/24 Unknown Rx meclizine 12.5 mg tablet 12.5 mg PO TID PRN PRN Vertigo #0 01/14/24 Unknown Rx tabs melatonin 3 mg tablet 3 mg PO QHS PRN PRN Insomnia #0 01/14/24 Unknown Rx tabs sennosides 8.6 mg-docusate sodium 2 tab PO BID Constipation 01/14/24 Unknown History 50 mg tablet (Stimulant Laxative Plus) Allergy/AdvReac Type Severity Reaction Status Date / Time No Known Allergies Allergy Verified 11/15/21 12:27 Family History Mother Emphysema lung Brother Cancer Kidney Stomach ulcer Father Cancer Bladder Aunt CVA (cerebral vascular accident) Surgical History History of cholecystectomy History of hysterectomy Social History household members: spouse housing: house Smoking Status: Never smoker second hand exposure: Yes alcohol intake: never substance use type: does not use caffeine: No what type of physical activity do you participate in: none ROS Review of Systems ROS Unobtainable: due to mental status and other Details: very limited due to confusion and hypersomnolence. She has vertigo if she suddenly turns her head. Constitutional Constitutional: Reports poor appetite and weakness; Denies chills or night sweats Eyes Eyes: Denies change in vision, eye pain or loss of vision ENT HEENT: Denies dysphagia or headache(s) Cardiovascular Cardiovascular: Denies chest pain Respiratory/Chest Respiratory/Chest: Denies cough or dyspnea Gastrointestinal Gastrointestinal: Denies abdominal pain or nausea Genitourinary Genitourinary: Reports other Details: She has urine retention and has a Jim catheter in. Integumentary Integumentary: Denies jaundice or rash Neurologic Neurologic: Reports confusion, disequilibrium, focal weakness, vertigo and other Details: She is aware that she is confused. She is also complaining of being extremely sleepy. She only admits to vertigo when she turns her head suddenly to look at someone. Psychiatric Psychiatric: Denies anxiety, depression or suicidal ideation Endocrine Endocrinology: Denies change in body appearance, polydipsia or polyuria Hematologic/Lymphatic Hematologic/Lymphatic: Denies easy bleeding, easy bruising or lymphadenopathy Allergic/Immunologic Allergic/Immunologic: Denies rhinitis, eczemia or asthma Vital Signs Vital Signs Vital Signs: 01/14/24 13:37 01/14/24 16:40 01/14/24 18:00 Temperature 97.4 F L 98.6 F Temperature Source Oral Temporal Pulse Rate 92 88 Pulse Strength Respiratory Rate 17 16 Respiratory Effort Normal Non-Labored Respiratory Depth Normal Respiratory Pattern Normal Blood Pressure 153/62 H 126/62 H Blood Pressure Mean 92 83 Blood Pressure Source Monitor Monitor Blood Pressure Position Semi-Fowlers Semi-Fowlers Blood Pressure Location Right Arm Right Arm Pulse Ox 97 97 Oxygen Delivery Method Room Air Room Air Room Air 01/14/24 19:16 01/14/24 21:20 01/15/24 05:14 Temperature 97.8 F Temperature Source Temporal Pulse Rate 84 Pulse Strength Normal (2+) Respiratory Rate 18 Respiratory Effort Respiratory Depth Respiratory Pattern Blood Pressure 139/69 H Blood Pressure Mean 92 Blood Pressure Source Monitor Blood Pressure Position Semi-Fowlers Blood Pressure Location Left Arm Pulse Ox 98 96 Oxygen Delivery Method Room Air Room Air 01/15/24 08:53 Temperature Temperature Source Pulse Rate Pulse Strength Respiratory Rate Respiratory Effort Respiratory Depth Respiratory Pattern Blood Pressure Blood Pressure Mean Blood Pressure Source Blood Pressure Position Blood Pressure Location Pulse Ox 97 Oxygen Delivery Method Room Air Weight Weight: 150 lb 5.684 oz Body Mass Index (BMI) 22.8 Indicators for Scoring Admitted with or Primary Diagnosis of CVA/Stroke: Yes Hx of CVA/Stroke: Yes Modified Colt Score MRS Score at time of Evaluation: 5-Severe disability NIHSS NIHSS 1a. Level of Consciousness: Not alert; Arousable by minor stimuli to obey, answer & respond 1b. LOC Questions: Answers BOTH questions correctly. 1c. LOC Commands: Performs both tasks correctly. 2. Best Gaze: Normal (no nystagmus) 3. Visual: No visual loss 4. Facial Palsy: Minor paralysis (flattened nasolabial fold, asymmetry on smiling) 5a. Left Arm: No drift; arm holds 90 (or 45) degrees for full 10 seconds 5b. Right Arm: No drift; arm holds 90 (or 45) degrees for full 10 seconds 6a. Left Leg: No drift; leg holds 30-degree position for full 5 seconds 6b. Right Leg: No drift; leg holds 30-degree position for full 5 seconds 7. Limb Ataxia: Present in 2 limbs (both UE's) 8. Sensory: Normal; no sensory loss 10. Dysarthria: [id number] dysarthria; 11. Extinction and Inattention: No abnormality Total: 5 Stroke Questions Stroke Team Activated: No Physical Exam Const Constitutional Narrative: She is very somnolent and keeps nodding off to sleep when working with myself and the therapists. Nursing reports that she slept well last night. She takes 30 mg of citalopram daily and also takes 1.5 mg of Klonopin at at bedtime for parasomnia. She recognizes that she is confused. Very slow to respond to questions and commands. Nutritional Appearance: thin HEENT normocephalic HEENT Narrative: Very dry mucous membranes. Neck supple, no JVD, No nodes and no carotid bruits General: trachea midline Chest Chest: symmetrical chest wall rise Resp normal respiratory effort, normal air movement and clear to auscultation bilaterally Resp Narrative: Not tachypneic. No conversational dyspnea. No accessory muscle use. Effort and Inspection: able to speak in complete sentences Cardio regular rate, regular rhythm, S1 normal heart sound, S2 normal heart sound, no murmurs, no rub and no gallops Cardio Narrative: No ectopy GI normal to inspection, nondistended, normoactive bowel sounds, soft to palpation and non-tender GI Narrative: No guarding with palpation. No masses appreciated. no CVA tenderness Extremity no clubbing, cyanosis or edema and no calf tenderness Skin no wounds, no jaundice and no mottling General Skin Exam: no breakdown Rashes: no rashes Neuro oriented x3 Neuro Narrative: Difficult to keep her awake. No aphasia. Mild -mod dysarthria. NO visual loss. No nystagmus. + ataxia with both UE's but, no ataxia in the LE's. Very difficult at times to understand what she is saying. Having a difficult time attending to what is being said. I have to keep repeating things. No sensory loss. No extinction. Holds the Le eye closed most of the time but, she is able to open the left eye when asked to. Denies vertigo. Psych Psych Narrative: Slow thought processing. Poor attention span. Memory difficulties. At times making appropriate witty remarks. Results Lab / Micro Data 01/15/24 05:13 01/15/24 05:13 Labs: Laboratory Results - last 24 hr 01/15/24 05:13: WBC 11.8 H, RBC 3.82 L, Hgb 11.8 L, Hct 35.4 L, MCV 92.7, MCH 30.9, MCHC 33.3, RDW Std Deviation 41.9, RDW Coeff of Joy 12.3, Plt Count 168, M PV 12.4 H, Sodium 142, Potassium 3.4 L, Chloride 117 H, Carbon Dioxide 19.0 L, Anion Gap 6, BUN 32 H, Creatinine 1.35 H, Estim Creat Clear Calc 34.65, Est GFR (MDRD) Af Amer 49 L, Est GFR (MDRD) Non-Af 40 L, BUN/Creatinine Ratio 23.7 H, Glucose 106, Calcium 8.2 L, Phosphorus 2.8, Magnesium 2.3, Total Bilirubin 0.70, AST 56 H, ALT 51, Alkaline Phosphatase 96, Total Protein 6.1 L, Albumin 2.8 L, Globulin 3.3, Albumin/Globulin Ratio 0.8 L 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): (4) Urinary retention: (5) Urinary tract infection: QUALIFIERS: Urinary tract infection type: acute cystitis H ematuria presence: with hematuria Qualified Code(s): N30.01 - Acute cystitis with hematuria (6) Vertigo: (7) Essential (primary) hypertension: (8) Parasomnia: QUALIFIERS: Parasomnia type: REM sleep behavior disorder Q ualified Code(s): G47.52 - REM sleep behavior disorder (9) CKD (chronic kidney disease) stage 3, GFR 30-59 ml/min: QUALIFIERS: Chronic kidney disease stage 3 subtype: stage 3b (GFR 30-44) Qualified Code(s): N18.32 - Chronic kidney disease, stage 3b (10) SABRINA (obstructive sleep apnea): PLAN: Unclear whether she is using CPAP.........no CPAP machine accompanied her at transfer to rehab. (11) Anxiety and depression: PLAN: On Citalopram and Klonopin. PLAN: Plan PLAN PT for gait stability OT for ADL's ST for evaluation Analgesics as needed Bowel protocol Fall precautions Assess for Anxiety/Depression GI prophylaxis -not necessary at this time. She denies nausea/vomiting/epigastric pain/heartburn. DVT prophylaxis with enoxaparin 30 mg subcu daily Follow up with Dr. Encarnacion this, neurology, sleep medicine following DC from [facility] Rehab AM lab including CMP, CBC, Mag and Phos Discontinue ciprofloxacin because it can lead to confusion in the elderly. Start Keflex 500 mg p.o. every 8 hours x 4 days. She slept well last night and she is very somnolent today. Will decrease the at bedtime Klonopin to 1 mg tonight Continue Plavix 75 mg/day per family request. Try and find out if colestipol was being used for hyperlipidemia ......if so could DC since she is now on Lipitor 80 mg daily. I suspect she may have been non-compliant with Atorvastatin (discharged on 40 mg after the stroke in 2019 and the stroke in 2021 and came to the hospital recently on only Lipitor. find out who she is seeing for parasomnia/SABRINA and get records. Get a med list from Dr. Encarnacion........1 year ago she was taking Citalopram 20 mg (now taking 30 mg which is above the highest recommended dose in the elderly and can contribute to somnolence and confusion. She was also only taking 0.5 mg of Klonopin and now is on 1.5 mg? I suspect she may be overmedicated. Get the results of the evaluation done at the [facility] for NPH. Why was she referred for eval? Charges/Coding Visit Charges Inpatient E&M: 29747 Init Hosp L3
--- NOTE | 2024-01-15 10:37 | PCM.RU.PYE ---
Admission Information Primary Diagnosis:: Post stroke debility Status Changes from Prescreening?: No changes Identified Actual Problem List:: Infection, UTI, Skin Intergrity, Cognitve Impr/Memory Loss, Bladder Incontinence (urine retention - has a Jim catheter), Alteration in Sleep, Mobility Impaired, Self Care Deficit, Ineffective Communication, Know.Dfct of Medicaitons, Fluid Change-Dehydration and Alteration-Leisure Activ. Potential Problem List:: DVT, Bleeding, Infection, UTI, Aspiration, Falls, Skin Integrity and Depression Risk of Complications DVT: LMWH and ABIGAIL Hose Bleeding: Monitor Lab Values, Nursing to Teach Precautions for anti-coagulation therapy., Wound, if applicable, to be assessed every shift. and Stroke patients assessed for lethargy or change in status. Infection: Clinical Staff to Monitor for S/S of infection: and S/S of infection include fever, redness, warmth, etc. Urinary Tract Infection: Monitor for frequency, burning, discomfort, or incontinence. and Nursing will obtain urine sample for urinalysis and C&S when ordered. Aspiration: Clinical staff will monitor for coughing, drooling, congestion., Speech will evaluate swallowing and dsyphasia. and Nursing will monitor patient swallowing during meals. Falls: Patient will be evaluated for Fall Precautions and Patient will be placed on Fall Precautions as indicated per protocol. Skin Breakdown: Nursing will assess skin daily using assessment tool. and Nursing will place on Skin Breakdown Precautions as indicated. Pain: Clinical staff will assess patient's pain level per protocol., Medications will be given, if needed, and the pain level reassessed. and Other methods: Massage, distraction, decrease stimulus, etc. used PRN. Plan of Care Patient requires physician specializing in physical medicine and rehab oversight to provide close medical supervision of rehab issues including: Pain Management, Sleep Problems, Bowel and Bladder, Medical and co-morbidity Management, DVT prophylaxis, Rehabilitation Leadership and Coordination of treatment team Patient needs Physical Therapy: For a minimum of 1 hour and At least 5 out of 7 days Patient needs Physical Therapy to improve:: Mobility, Strengthening, Transfers, Stretching, ROM, Endurance, Stairs, Gait and Balance Patient needs Occupational Therapy: For a minimum of 1 hour and At least 5 out of 7 days Patient needs Occupational Therapy to improve ADL's incl.: Eating, Grooming, Bathing, Dressing, Toileting, Toilet transfers, Community Reintegration, Higher functioning activities, Household tasks, Adaptive Equipment, Splinting and Other activities as determined Patient requires speech therapy: For a minimum of 1 hour and At least 5 out of 7 days Patient requires speech therapy for: Swallowing, Cognition, Language Skills and Compensatory Strategies Patient requires 24/ Rehabilitation Nursing for: Pain Issues, Identifying and preventing risk factors, Monitoring and reporting current medical conditions, Assisting with ambulation, transfer, and all ADL's, Teaching patients about disease process and medications, Family teaching, Providing safe environment, Bowel and Bladder Issues, Skin integrity and Medication Management Patient needs Aging Department Supervisor/ Case Management for: Discharge Planning, Arranging Home Equipment or Services and Family Interventions Patient needs Dietary and Nutrition Services for: Adequate Nutrition, Nutritional Supplements and Nutritional Education Goals Goals Patient will remain: free from falls Patient will perform eating at: MOD I level of assist. Patient will perform bed mobility at: MOD I level of assist. Patient will complete transfers from bed to chair at: Standby Assist. Patient will ambulate: - (165' with LRD At SBA on various surfaces) Patient will complete upper body dressing at: - (Min assist) Patient will complete lower body dressing at: - (Min assist with adaptive equipment as needed) Patient will complete toilet transfer at: - (Min assist) Patient will complete toileting at: - (Min assist) Patient will perform bathing at: - (Minimal assistance with use of DME as needed. ) Patient will perform Tub/Shower transfer at: - (Min assist using DME as needed) Patient will complete grooming at: - (Set up level while seated at the sink) Patient will complete home management skills at: - (Min assist) Patient will achieve: - (4-5 steps with LRD at CGA to allow entry to her home. ) Patient will have pain level of: of 3 or less Patient's skin will: remain intact Patient will receive: adequate nutrition. Discharge Planning Pt Prognosis for Sig. Practical Improv. w/in Reasonable Time: Good Estimated Length of stay (days): 28 Anticipated D/C Destination: TBD Was Preadmission Assessment Accurate?: Yes
[2024-01-15] MEDS: Ensure Plus High Protein 120 ML LIQUID PO ×2 (16:46→21:05)
[2024-01-15 18:00] VITALS: BP 148/68; PULSE 85; RESP 16; TEMP 36.6; O2SAT 97
[2024-01-15] MEDS: Cephalexin Suspension 250 MG/5 ML PO.SYRINGE 500 MG PO (18:06)
[2024-01-15 18:24] VITALS: BMI 22.8
[2024-01-15] MEDS: clonazePAM 0.5 MG Tablet 1 MG PO (21:01)
[2024-01-15] MEDS: Atorvastatin Calcium 80 MG Tablet PO (21:01)
[2024-01-15 23:50] VITALS: BMI 22.8
[2024-01-16] MEDS: Menthol/Lanolin/Calamine/Znox 113 GM Tube 1 APPLIC TOPICAL ×2 (05:31→21:13)
[2024-01-16] MEDS: Enoxaparin 30 MG/0.3 ML Syringe SC (05:31)
[2024-01-16 05:57] VITALS: BP 132/60; PULSE 72; RESP 17; TEMP 36.6; O2SAT 94
[2024-01-16 07:10] VITALS: O2SAT 94
[2024-01-16] MEDS: amLODIPine 5 MG Tablet PO (08:13)
[2024-01-16] MEDS: Citalopram 20 MG Tablet PO (08:13)
[2024-01-16] MEDS: Cholecalciferol (VIT D3) 25 MCG TABLET (1,000 UNITS) PO ×2 (08:13→21:06)
[2024-01-16] MEDS: Clopidogrel Bisulfate 75 MG Tablet PO (08:13)
[2024-01-16] MEDS: Senna/Docusate Sodium 1 Tablet 2 TABLET PO ×2 (08:13→21:06)
[2024-01-16] MEDS: Ensure Plus High Protein 120 ML LIQUID PO ×4 (08:14→21:06)
[2024-01-16] MEDS: Cephalexin Suspension 250 MG/5 ML PO.SYRINGE 500 MG PO ×2 (08:17→21:06)
[2024-01-16 09:41] VITALS: BMI 22.8
--- NOTE | 2024-01-16 09:58 | PN_ITS ---
Subjective Subjective Afebrile VSS -blood pressure over the past 24 hours has ranged from 132/68 to 148/68. Heart rate is within normal limits. Maintaining appropriate oxygen saturation on RA-pulse ox has ranged from 94 to 97% over the past 24 hours and she is not tachypneic. Oral intake - FOOD she ate 75 to 100% of her breakfast today. FLUIDS fluid intake yesterday was 1160 cc a fluid balance of +335. Last bowel movements recorded were on 01/12/2024 and she had 2. Discussed with nursing - agitated last evening. Thought her was cheating on her. She calmed down after talking with him on the phone for a short time but, then forgot she talked with him. After Klonopin she went to sleep and slept thorough the night. Was found pulling on the Jim again last evening. Reviewed the THERAPY notes Medication list reviewed. She was sleeping when I entered her room this AM but, she aroused easily and she was more alert than yesterday. She stayed awake for my entire exam today and we repeated the neuro exam. She denies CP, SOB, N/V/abd pain, calf pain, suprapubic pain, vertigo. She is keeping her left eye shut and tells me that the light coming in the window is very bright in the left eye. It is overcast today. Patients was called about her CPAP machine and he told the nurse that she is not wearing CPAP and he has no idea where the machine is. I spoke with the sleep lab and got the results of the last sleep study. She has not been on PAP therapy since 2019 due to non-compliance. She has had a few sleep studies since then BUT, she is not sleeping during the study.......she slept only 11 minutes during the last test. Neurology started her on B12 for B12 deficiency. She last saw Dr. Silvestre from sleep medicine in September of 2023. The pt and her told Dr. Silvestre at that time that they wanted no more W/U for sleep disturbances. She may be seeing another neurologist for memory care. Has been diagnosed with NPH. They had a tele visit to discuss the results of the work up at [facility] and they refused a [employer]OTH[employer] DRIER ASSEM[employer]ER shunt. Objective Data Objective Data Vital Signs: Vital Signs Temp Pulse Resp BP Pulse Ox O2 Del Method 97.9 F 72 17 132/60 H 94 Room Air 01/16/24 05:57 01/16/24 05:57 01/16/24 05:57 01/16/24 05:57 01/16/24 07:10 01/16/24 07:10 Oxygen Delivery Method Room Air Weight: 150 lb 5.684 oz Body Mass Index (BMI) 22.8 Intake & Output: Intake and Output for Last 24 Hours 01/14/24 01/15/24 01/16/24 23:59 23:59 23:59 Intake Total 790 / 790 1160 / 1160 460 / 460 Output Total 800 / 800 825 / 825 700 / 700 Balance -10 / -10 335 / 335 -240 / -240 Lab / Micro Data 01/15/24 05:13 01/15/24 05:13 Physical Exam Const Constitutional Narrative: More alert today with me. I was able to complete a repeat neuro exam with her today and she did not fall asleep however, when ST tried to work with her a few hours later she was very somnolent and speech was so slurred she could not be understood. She woke up with the therapist got her out of bed. General Appearance: cooperative HEENT Mouth: dry mucous membranes Eyes PERRL and EOMs intact bilaterally Neck supple Resp clear to auscultation bilaterally Resp Narrative: No conversational dyspnea. Effort and Inspection: Negative for tachypneic or labored Cardio regular rate, regular rhythm, no murmurs and no gallops Cardio Narrative: No ectopy GI normal to inspection, nondistended, normoactive bowel sounds, soft to palpation and non-tender GI Narrative: Last bowel movement was 01/12/2024 Extremity no calf tenderness General Extremity: Negative for cyanosis or edema Skin General Skin Exam: no breakdown Rashes: no rashes Psych cooperative Psych Narrative: Never refuses therapy however she is very somnolent at times and it is difficult to arouse her. She does not appear anxious. She does seem to become more confused in the evening and last night told the nurses that her was cheating on her and this morning she thinks that she is on a trip. Even though she thinks she is on a trip she can tell me she is at [facility] and she can tell me her age, the month, the year and is able to follow commands appropriately. She is slow to follow commands. 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): (4) Urinary retention: (5) Urinary tract infection: QUALIFIERS: Hematuria presence: with hematuria Urinary tract infection type: acute cystitis Qualified Code(s): N30.01 - Acute cystitis with hematuria (6) Vertigo: (7) Essential (primary) hypertension: (8) Parasomnia: QUALIFIERS: Parasomnia type: REM sleep behavior disorder Q ualified Code(s): G47.52 - REM sleep behavior disorder (9) CKD (chronic kidney disease) stage 3, GFR 30-59 ml/min: QUALIFIERS: Chronic kidney disease stage 3 subtype: stage 3b (GFR 30-44) Qualified Code(s): N18.32 - Chronic kidney disease, stage 3b (10) SABRINA (obstructive sleep apnea): PLAN: Unclear whether she is using CPAP.........no CPAP machine accompanied her at transfer to rehab. (11) Anxiety and depression: PLAN: On Citalopram and Klonopin. (12) Metabolic acidosis: PLAN: Plan 1. Continue therapy. She is cooperative with therapy but, she is so sleep deprived and overmedicated that this limits her performance and endurance. We are going to need to get the sleep apnea appropriately treated and adjust medications in order to get her sufficiently alert to do effective therapy. D/W SW. Will have her bring in all the medications she has been taking. Why have they been refusing treatment......lack of education/failure to see improvement with interventions/cognitive deficits in pt and ?/ non- compliance with medications. 2. Decrease the Klonopin to 0.5 mg at HS. Hold the Citalopram for 2 days and then restart at a lower dose of 10 mg.......I am unable to determine if the Citalopram is helping with depression or not in a pt who is so somnolent and debilitated AND SSRI's can cause RBD (REM behavioral disturbance). 3. Apparently she was on Colestipol for diarrhea so will restart IF she has diarrhea.......Currently she is constipated. 4. Restart Melatonin for RBD.....5 mg Q HS. 5. Order Autopap tonight at 5-20 cm. Elevate the HOB to at least 30 degrees while sleeping and have her lie on her side. 6. Maintain Jim catheter-voiding trial in 1 week. 7. Continue Keflex for Proteus mirabilis urinary tract infection 8. CTB without contrast since ST is worried about the increased slurring.......I suspect this is due to overmedication and sleep deprivation. This is a very complicated patient who is requiring much more than therapy for stroke. 90 minutes was spent caring for this patient today, gathering information from other doctors and sleep lab, reviewing records and the EMR from [facility], examining the patient. Charges/Coding Visit Charges Inpatient E&M: 55668 Subs Hosp L3
[2024-01-16 09:59] VITALS: BP 119/56; BP 134/72; BP 144/82; PULSE 89; PULSE 91; PULSE 96
--- NOTE | 2024-01-16 10:46 | CT_ITS ---
INDICATION: change in mental status, recent CVA EXAMINATION: CT BRAIN - CT Head or Brain W/O Contrast Injection TECHNIQUE: Multiple axial images were obtained of the head without intravenous contrast. The protocol utilizes one or more of the following dose reduction techniques: automated exposure control, adjustment of mA and/or kV according to patient size,and/or use of iterative reconstruction technique. IV Contrast dosage and agent: None. RADIATION DOSAGE (If Supplied By Facility): CTDIvol = ( 44.99 ) mGy, DLP = ( 829.85 ) mGycm COMPARISON: January 09, 2024 FINDINGS: BRAIN PARENCHYMA: No intra- or extra-axial hemorrhage. There is a stable low-attenuation focus within the right occipital lobe consistent with an old infarct. There is a focus of low attenuation within the superomedial left cerebellum. . There is preservation of the lamb/white matter interface. CSF SPACES: Appropriate for age. No hydrocephalus. Basal cisterns are patent. CALVARIUM, SKULL BASE, PARANASAL SINUSES AND MASTOID AIR CELLS: Clear. No discrete lytic or blastic abnormalities. ORBITS: Both globes, extraocular muscles, optic nerves and retrobulbar fat appear unremarkable. ASPECTS Score for Acute Strokes: 10 CT/Brain/Head without Contrast IMPRESSION: Low-attenuation focus within the left cerebellum consistent with acute infarct identified on recent MRI. Stable old right occipital infarct. Electronically Signed: Heather Nieves MD at 11:28 EDT ,
[2024-01-16] MEDS: 0.9% Saline Lock 10 ML Syringe IV (16:28)
[2024-01-16 18:00] VITALS: BP 130/62; PULSE 85; RESP 18; TEMP 37.2; O2SAT 97
[2024-01-16 20:05] VITALS: PULSE 78; RESP 24; O2SAT 96
[2024-01-16] MEDS: clonazePAM 0.5 MG Tablet PO (21:06)
[2024-01-16] MEDS: Atorvastatin Calcium 80 MG Tablet PO (21:07)
[2024-01-17 01:20] VITALS: BMI 22.8
--- NOTE | 2024-01-17 02:04 | NURSING ---
HOB elevated per order. Patient was restless in the beginning of the shift and several times CPAP attempted and patient would take off face and tear apart mask due to fidgety. As of 130am patient has been resting soundly with CPAP mask on and in place. Will continue to monitor.
[2024-01-17 02:32] VITALS: PULSE 77; RESP 20; O2SAT 96
[2024-01-17] MEDS: Enoxaparin 30 MG/0.3 ML Syringe SC (04:44)
[2024-01-17] MEDS: Menthol/Lanolin/Calamine/Znox 113 GM Tube 1 APPLIC TOPICAL ×2 (04:45→20:11)
--- NOTE | 2024-01-17 05:35 | NURSING ---
At this time, patient wore mask from the time charted before until now but further refused to wear it or any oxygen. Will monitor.
[2024-01-17 05:48] VITALS: BP 154/75; PULSE 89; RESP 17; TEMP 37.2; O2SAT 97
[2024-01-17 05:52] VITALS: BMI 23.1
[2024-01-17] MEDS: Senna/Docusate Sodium 1 Tablet 2 TABLET PO ×2 (08:03→20:13)
[2024-01-17] MEDS: Cholecalciferol (VIT D3) 25 MCG TABLET (1,000 UNITS) PO ×2 (08:03→20:13)
[2024-01-17] MEDS: Clopidogrel Bisulfate 75 MG Tablet PO (08:03)
[2024-01-17] MEDS: amLODIPine 5 MG Tablet PO (08:03)
[2024-01-17] MEDS: Cephalexin Suspension 250 MG/5 ML PO.SYRINGE 500 MG PO ×2 (08:03→20:12)
[2024-01-17] MEDS: Ensure Plus High Protein 120 ML LIQUID PO ×3 (08:14→20:11)
--- NOTE | 2024-01-17 15:50 | CHAPLAIN ---
Type of Pastoral Visit ___ Initial Visit ___ Follow-up Visit ___ On-call Visit ___ General Patient Visit ___ Spiritual Assessment ___ Family Conference ___ Bereavement ___ Rapid Response ___ Code Blue ___ Other (describe below) Pastoral Care Referral From ___ Patient ___ Family ___ Nurse ___ Physician ___ Steel Unloader ___ Equipment Hire Manager ___ Other (describe below) Sacrament/Intervention ___ Active listening ___ Anointing ___ Muslim ___ Bereavement ___ Communion ___ Lucía exploration ___ ___ Life review ___ Prayer ___ Reconciliation ___ Sacrament of Sick ___ Supportive presence ___ Wedding ___ Other (describe below) Pastoral Comments patient was sleeping and was not disturbed
[2024-01-17 16:28] VITALS: BMI 23.1
[2024-01-17 18:00] VITALS: BP 147/69; PULSE 88; RESP 16; TEMP 36.6; O2SAT 96
[2024-01-17] MEDS: clonazePAM 0.5 MG Tablet PO (20:04)
[2024-01-17] MEDS: Atorvastatin Calcium 80 MG Tablet PO (20:13)
[2024-01-17 21:00] VITALS: BMI 23.1
[2024-01-17 22:00] VITALS: RESP 15; O2SAT 95
[2024-01-18] MEDS: Menthol/Lanolin/Calamine/Znox 113 GM Tube 1 APPLIC TOPICAL ×2 (05:28→20:22)
[2024-01-18] MEDS: Enoxaparin 30 MG/0.3 ML Syringe SC (05:28)
[2024-01-18 06:00] VITALS: BP 154/72; PULSE 97; RESP 16; TEMP 36.6; O2SAT 94
[2024-01-18 06:02] VITALS: BMI 22.8
[2024-01-18 06:52] VITALS: PULSE 78; RESP 20; O2SAT 96
[2024-01-18 07:28] LABS: Bedside Glucose 126 mg/dL (74-106)
--- NOTE | 2024-01-18 08:13 | PN_ITS ---
Subjective Subjective Afebrile VSS - Maintaining appropriate oxygen saturation on RA Oral intake - FOOD highly variable frequently poor FLUIDS good, had 1960 p.m. yesterday. Discussed with nursing - no problems that need addressed Reviewed the THERAPY notes Medication list reviewed. brought in home medications. I reviewed. She removes the CPAP mask at night and nursing is frequently having to put it back on. Very somnolent during the day.......not able to do 3 hours of therapy. No complaints today. She is perseverating on going home. She was talking to someone when I entered her room today and there was no one else in the room. Her speech is very slurred and I can not understand a lot of what she is saying. She does not appear to be in any distress. Not coughing. No tachypnea. ST told me that she is coughing with swallowing and she is going to have to down grade the diet to pureed. She is making motions like she is going to put something in her mouth to eat however, she has nothing in her hand and she is ataxic with both UE's so she can not even get her hand to her mouth. Objective Data Objective Data Vital Signs: Vital Signs Temp Pulse Resp BP Pulse Ox O2 Del Method 97.9 F 97 16 154/72 H 94 Room Air 01/18/24 06:00 01/18/24 06:00 01/18/24 06:00 01/18/24 06:00 01/18/24 06:00 01/18/24 06:00 Oxygen Delivery Method Room Air Weight: 149 lb 14.629 oz Body Mass Index (BMI) 22.8 Intake & Output: Intake and Output for Last 24 Hours 01/16/24 01/17/24 01/18/24 23:59 23:59 23:59 Intake Total 1380 / 1380 1950 / 1950 200 / 200 Output Total 1250 / 1250 1400 / 1400 500 / 500 Balance 130 / 130 550 / 550 -300 / -300 Lab / Micro Data 01/15/24 05:13 01/15/24 05:13 Labs: Laboratory Results - last 24 hr 01/18/24 05:49: POC Glucose 126 H Physical Exam Const Constitutional Narrative: Very drowsy with markedly slurred speech. Hard to keep her awake. Not able to do 3 hours of therapy. She is up in the chair today. Has not been trying to pull the Jim out. HEENT HEENT Narrative: MM are more moist. No thrush. Neck supple Resp Resp Narrative: Unable to take a deep breath on command.......diminished in the bases. No cough, no wheezing. Not tachypneic. Breathing is not labored. Cardio regular rate, regular rhythm and no gallops GI normal to inspection, nondistended, normoactive bowel sounds, soft to palpation and non-tender GI Narrative: No guarding with palpation. Extremity no calf tenderness General Extremity: Negative for edema Skin General Skin Exam: dry skin Rashes: no rashes Neuro Neuro Narrative: No improvement. 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): (4) Urinary retention: (5) Urinary tract infection: QUALIFIERS: Hematuria presence: with hematuria Urinary tract infection type: acute cystitis Qualified Code(s): N30.01 - Acute cystitis with hematuria (6) Vertigo: (7) Essential (primary) hypertension: (8) Parasomnia: QUALIFIERS: Parasomnia type: REM sleep behavior disorder Q ualified Code(s): G47.52 - REM sleep behavior disorder (9) CKD (chronic kidney disease) stage 3, GFR 30-59 ml/min: QUALIFIERS: Chronic kidney disease stage 3 subtype: stage 3b (GFR 30-44) Qualified Code(s): N18.32 - Chronic kidney disease, stage 3b (10) SABRINA (obstructive sleep apnea): (11) Anxiety and depression: (12) Metabolic acidosis: (13) Visual hallucinations: PLAN: Plan Met with Chetan after TEAM rounds. ST tells me that she is aspirating/coughing with even liquids on a tsp and with all textures. She continues to decline. Chetan and Abby have discussed what to do if there is no hope for recovery and both have agreed in the past that they would not want to be kept alive IF there is no hope for recovery or any quality of life. Chetan realizes that is taking 2-3 trained professionals to even transfer her at this point and knows that he would not be able to care for her at home. He is agreeable to a hospice consult. I explained to him about the confusion and hallucinations and told me that if we are going to continue to try and treat her she would need a FT or PEG. He is against this. Will allow her to eat and drink if she wants. DC Autopap.....she has always fought having to wear CPAP and they have not been using the CPAP/Autopap since 2019. Will continue the benzo because I do not want her to go into withdrawal. Since she is not swallowing I will need to use Ativan Intensol. Will discuss appropriate dosing to prevent Benzo withdrawal with the pharmacist. SW will make the referral. I spoke with Dr Mercer who feels she is appropriate for the inpt hospice unit. I spoke with the SW and she is waiting for hospice to come to the hospital and have the sign the paperwork. Will DC all meds. Pharmacist tells me that the dose on Ativan to replace Klonopin 0.5 mg is 1 mg of Ativan. D/W Dr. Mercer - she prefers 0.5 mg A6H PRN for now. Will DC the [place] at [place]. Charges/Coding Visit Charges Inpatient E&M: 12645 Subs Hosp L2
[2024-01-18] MEDS: Senna/Docusate Sodium 1 Tablet 2 TABLET PO ×2 (08:20→20:21)
[2024-01-18] MEDS: Clopidogrel Bisulfate 75 MG Tablet PO (08:20)
[2024-01-18] MEDS: amLODIPine 5 MG Tablet PO (08:20)
[2024-01-18] MEDS: Cholecalciferol (VIT D3) 25 MCG TABLET (1,000 UNITS) PO (08:20)
[2024-01-18] MEDS: Cephalexin Suspension 250 MG/5 ML PO.SYRINGE 500 MG PO ×2 (08:23→20:22)
[2024-01-18] MEDS: Ensure Plus High Protein 120 ML LIQUID PO (08:23)
[2024-01-18] MEDS: Magnesium Hydroxide 30 ML UDC PO (08:23)
[2024-01-18 13:28] VITALS: BMI 22.8
--- NOTE | 2024-01-18 14:19 | CASEMGMT ---
Social Work Team meeting held with pt's spouse Chetan present. PT/OT/ST/SN discussed pt's participation with therapy. SW and physician met with Chetan. Physician explained medical issues with pt's and recommendations that pt may be appropriate for hospice at this time. SW and physician provided emotional support. After discussion, Chetan is agreeable to referral to [facility]. [facility] vs nursing facility discussed and Chetan is hopeful pt will be accepted to the [facility]. Phone call to [facility] and referral made, clinicals faxed. [facility] to reach out to Chetan and set an appointment. Nursing updated. TEMO Whitley
--- NOTE | 2024-01-18 15:13 | CHAPLAIN ---
Type of Pastoral Visit ___ Initial Visit ___ Follow-up Visit ___ On-call Visit ___ General Patient Visit ___ Spiritual Assessment ___ Family Conference ___ Bereavement ___ Rapid Response ___ Code Blue ___ Other (describe below) Pastoral Care Referral From ___ Patient ___ Family ___ Nurse ___ Physician ___ Developmental Behavioral Physician ___ Physical Therapy Technician ___ Other (describe below) Sacrament/Intervention ___ Active listening ___ Anointing ___ Protestant ___ Bereavement ___ Communion ___ Lucía exploration ___ ___ Life review ___ Prayer ___ Reconciliation ___ Sacrament of Sick ___ Supportive presence ___ Wedding ___ Other (describe below) Pastoral Comments attempted visit yesterday and patient was sound asleep; attempted visit today and patient was having therapy
--- NOTE | 2024-01-18 16:33 | CASEMGMT ---
Social Work Return call from [facility]. Meeting is set for tomorrow 01/18 at 5pm. SW asked for sooner appointment, however hospice states this is their first available. If something should open up, they will move this pt's appointment up. Nursing updated. TEMO Ariza
[2024-01-18 18:00] VITALS: BP 144/69; PULSE 79; RESP 16; TEMP 36.3; O2SAT 98
[2024-01-18 20:03] VITALS: BMI 22.8
[2024-01-18 22:00] VITALS: RESP 15; O2SAT 94
--- NOTE | 2024-01-19 05:14 | NURSING ---
KENT d/c'd intact and pt tolerated well.
[2024-01-19 06:00] VITALS: BMI 22.3
[2024-01-19 06:22] LABS: Hematocrit 37.6 % (37-47); Hemoglobin 12.1 g/dL (12.0-15.0); Mean Corp Hgb Conc 32.2 g/dL (32-36); Mean Corpuscular Hgb 29.7 pg (27.0-32.0); Mean Corpuscular Volume 92.2 fL (81-99); Mean Platelet Vol. 11.9 fl (6.2-12.0); POSITIVE COUNT YES; POSITIVE MORPHOLOGY YES; Platelet Count 288 K/mm3 (150-450); RBC Distribution Width CV 12.5 % (11.6-14.6); RBC Distribution Width SD 42.2 fl (35.1-43.9); Red Blood Count 4.08 M/mm3 (4.2-5.4); White Blood Count 12.5 K/mm3 (4.4-11.0)
[2024-01-19 06:26] LABS: Differential Indicated MANUAL DIFF
[2024-01-19 06:28] LABS: Anion Gap 6 (5-15); BUN 23 mg/dL (7-18); BUN/Creat Ratio 21.1 RATIO (10-20); Calcium,Total 8.7 mg/dL (8.5-10.1); Chloride 117 mmol/L (98-107); Creatinine, Serum 1.09 mg/dL (0.55-1.02); EST Glomerular Filtration Rate 52 mL/min (>60); Est Glom Filt Rate - Afr Amer 62 mL/min (>60); Estimated Creatinine Clearance 42.91 ml/min; Glucose 125 mg/dL (74-106); Magnesium 2.5 mg/dL (1.6-2.6); Phosphorus 3.2 mg/dL (2.5-4.9); Potassium 3.6 mmol/L (3.5-5.1); Sodium Level 145 mmol/L (136-145)
[2024-01-19 06:44] VITALS: BP 142/66; PULSE 78; RESP 15; TEMP 36.4; O2SAT 95
[2024-01-19] MEDS: Menthol/Lanolin/Calamine/Znox 113 GM Tube 1 APPLIC TOPICAL (06:54)
--- NOTE | 2024-01-19 08:11 | CASEMGMT ---
Social Work VM received from [facility]. Meeting time has changed from 5pm today to 1130 today. Nursing updated. S TEMO Gee
[2024-01-19] MEDS: Cephalexin Suspension 250 MG/5 ML PO.SYRINGE 500 MG PO (08:27)
[2024-01-19] MEDS: Senna/Docusate Sodium 1 Tablet 2 TABLET PO (08:27)
[2024-01-19 09:21] LABS: Eosinophil 1 % (0-5); Lymphocyte 6 % (19-41); Metamyelocyte 1 % (0-1); Monocyte 9 % (0-10); Myelocyte 1 % (0-0); Neutrophil-Segmented 82 % (47-70); Total Cells Counted 100 (MANUAL DIFF)
[2024-01-19 09:22] LABS: Absolute Lymphocyte Count 0.75 X10^3/uL (0.83-4.51); Absolute Neutrophil Count 10.3 X10^3/uL (2.0-7.7)
[2024-01-19 09:23] LABS: Platelet Estimate ADEQUATE (ADEQ); Red Cell Morphology NORM C+C NORMAL (NORM C&C)
[2024-01-19 10:35] VITALS: BMI 22.3
--- NOTE | 2024-01-19 10:49 | DS.PCM_ITS ---
Providers Date of Admission: 01/14/24 Date of Discharge: 01/19/24 Primary Care Physician: Dr. Erna Encarnacion MD [facility] Reason For Visit: STROKE Diagnosis Discharge Diagnosis (1) Debility: Status: Acute Code(s): R53.81 - Other malaise Plan: Due to cerebellar stroke. This is her third cerebellar stroke. The first was in 2019, the second in 2021. Not able to do therapy. Severe oropharyngeal dysphagia. Ataxia. Vertigo has resolved. (2) Cerebellar stroke: Status: Acute Code(s): I63.9 - Cerebral infarction, unspecified (3) Cognitive dysfunction due to acute cerebrovascular accident (CVA): Status: Acute Code(s): I63.9 - Cerebral infarction, unspecified; R41.89 - Other symptoms and signs involving cognitive functions and awareness (4) Urinary retention: Status: Acute Code(s): R33.9 - Retention of urine, unspecified Plan: Jim was removed on the night of the 31rst. Has not urinated since removal of the Jim. Bladder scan prior to DC is 140-180. No intervention indicated. (5) Urinary tract infection: Status: Resolved Code(s): N39.0 - Urinary tract infection, site not specified Qualifiers: Urinary tract infection type: acute cystitis Hematuria presence: with hematuria Qualified Code(s): N30.01 - Acute cystitis with hematuria Plan: Due to Proteus Mirabilis. Had 3 doses of Rocephin followed by 2 days of Cipro and then 4 days of Keflex. Has been adequately treated. (6) Vertigo: Status: Resolved Code(s): R42 - Dizziness and giddiness Plan: Has a hx of BPPV but, had not had vertigo for years prior the most recent stroke. (7) Essential (primary) hypertension: Status: Chronic Code(s): I10 - Essential (primary) hypertension (8) Parasomnia: Status: Chronic Code(s): G47.50 - Parasomnia, unspecified Qualifiers: Parasomnia type: REM sleep behavior disorder Qualified Code(s): G47.52 - REM sleep behavior disorder Plan: She has severe SABRINA, unable to tolerate CPAP. Not a candidate for INSPIRE due to the high pressures required to keep the airway open. She also has REM behavioral disorder and was taking 0.5 mg of Klonopin at HS. Failed Melatonin. She has RLS and on her last adequate sleep study she had over 120 limb movements per hour. REM behavioral disorder can evolve into Lewy body dementia and Multisystem atrophy. She is having visual hallucinations and is intermittently very confused. (9) CKD (chronic kidney disease) stage 3, GFR 30-59 ml/min: Status: Chronic Code(s): N18.3 - Chronic kidney disease, stage 3 (moderate) Qualifiers: Chronic kidney disease stage 3 subtype: stage 3b (GFR 30-44) Qualified Code(s): N18.32 - Chronic kidney disease, stage 3b Plan: She had acute on CRF while on the acute side of the hospital likely due to pre- renal azotemia.......rapidly improved with hydration. (10) SABRINA (obstructive sleep apnea): Status: Chronic Code(s): G47.33 - Obstructive sleep apnea (adult) (pediatric) Plan: severe. Was to be on Autopap 5-20 but, she can not tolerate and she has not been doing PAP therapy since 2019. The most recent sleep study showed she only slept a total of 11 minutes despite Klonopin. (11) Anxiety and depression: Status: Chronic Code(s): F41.9 - Anxiety disorder, unspecified; F32.A - Depression, unspecified Plan: Was on citalopram 30 mg at admission to the hospital and Klonopin 0.5 mg. (12) Metabolic acidosis: Status: Acute Code(s): E87.20 - Acidosis, unspecified Plan: More likely than not due to CRF. (13) Visual hallucinations: Status: Acute Code(s): R44.1 - Visual hallucinations (14) Oropharyngeal dysphagia: Status: Acute Code(s): R13.12 - Dysphagia, oropharyngeal phase Plan Met with Chetan after TEAM rounds. ST tells me that she is aspirating/coughing with even liquids on a tsp and with all textures. She continues to decline. Chetan and Abby have discussed what to do if there is no hope for recovery and both have agreed in the past that they would not want to be kept alive IF there is no hope for recovery or any quality of life. Chetan realizes that is taking 2-3 trained professionals to even transfer her at this point and knows that he would not be able to care for her at home. He is agreeable to a hospice consult. I explained to him about the confusion and hallucinations and told me that if we are going to continue to try and treat her she would need a FT or PEG. He is against this. Will allow her to eat and drink if she wants. DC Autopap.....she has always fought having to wear CPAP and they have not been using the CPAP/Autopap since 2019. Will continue the benzo because I do not want her to go into withdrawal. Since she is not swallowing I will need to use Ativan Intensol. Will discuss appropriate dosing to prevent Benzo withdrawal with the pharmacist. REINA will make the referral. I spoke with Dr Beltran who feels she is appropriate for the in hospice unit. I spoke with the SW and she is waiting for hospice to come to the hospital and have the sign the paperwork. Will DC all meds. Pharmacist tells me that the dose on Ativan to replace Klonopin 0.5 mg is 1 mg of Ativan. D/W Dr. Beltran - she prefers 0.5 mg A6H PRN for now. Will DC the Jim at [facility]. DC to the [facility]. Medications at Discharge Home Medications acetaminophen 325 mg tablet 650 mg (2 x 325 mg) PO Q6H PRN PRN Pain Score 1-10 #1 TAB 01/19/24 atropine 1 % eye drops 2 drp PO Q3H PRN PRN Congestion/drooling #1 mL 01/19/24 bisacodyl 10 mg rectal suppository 10 mg SD X1 PRN Constipation #1 ea 01/19/24 lorazepam 2 mg/mL oral concentrate 0.5 mg (0.25 mL) sublingual Q4H PRN PRN terminal restlessness/seizure #1 mL 01/19/24 menthol 0.44 %-zinc oxide 20.6 % topical ointment (Calmoseptine) 1 applic topical 0600,2200 #1 g 01/19/24 morphine concentrate 10 mg/0.5 mL oral syringe (FOR ORAL USE ONLY) 2.5 mg (0.125 mL) sublingual Q4H PRN PRN pain/severe agitation 1 day #1 ea 01/19/24 Hospital Course Operations None Summary of Care Provided Minutes Spent on Discharge: 35 Hospital Course: Abby Ferrara is a 78 YOF with a PMH of cerebellar CVA in 2019, cerebellar CVA in 2021 and recent focal acute ischemic CVA in the superomedial portion of the left cerebellum on 01/09/2024. She presented with vertigo, ataxia and dysphagia. Her hx is also + for severe SABRINA and REM behavioral disorder with RLS. She is not able to tolerate CPAP and is not a candidate for INSPIRE due to the high pressures required to keep the airway open. She has been taking Klonopin 0.5 mg at bedtime to help control the punching/kicking/frequent limb movements at night. Prior to this most recent stroke she was living independently with her Chetan in their house. Vertigo has resolved but, she has severe oropharyngeal dysphagia and severe Ataxia with both UE's. She is unresponsive most of the day and night. We tried applying Autopap at HS but, she can not tolerate and removes it immediately. She has been having visual hallucinations. Sometimes she is appropriate when able to arouse enough to speak. she has severe dysarthria and it is difficult to understand her. We met with Abby's Chetan on 01/18/24 and explained that she is declining and there is really nothing else we can do at this point to turn things around. He and Abby had talked about what they would want done if one of them ever reached this point and they both decided that if there was no hope for recovery or any significant quality of life they would not want to be kept alive. Abby has had very little fluid intake starting 01/17 and very little food since coming to rehab. Her MM are very dry and she has decreasing urine OP. Chetan requested a hospice consult and Abby is going to be admitted to the [facility] at Hospice on 01/19/24. All medications other than what is needed to keep her comfortable have been discontinued. She is ordered Roxanol, Ativan intensol and Atropine drops PRN but, prior to DC she has not required any of these medications. Physical Exam Const Constitutional Narrative: Very somnolent and unresponsive most of the day and night. Periodically wakes up and takes a small amount of fluid and a few bites of soft/pur?ed foods. she has not been restless unless we are attempting to apply O2 or CPAP. She was previously pulling at the Jim and was able to get it out with the balloon up at admission to rehab. HEENT HEENT Narrative: Very dry mucous membranes. She likes to hold the Left eye shut but, is able to open on command. Resp Resp Narrative: Shallow. No respiratory distress, no accessory muscle use. Not tachypneic. No wheezing and no crackles. BS's are diminished, manuel in the bases. Cardio regular rate and regular rhythm GI GI Narrative: ND, No guarding with palpation, BS's present but, low frequency. Bladder is not distended. Extremity no pedal edema Skin General Skin Exam: no breakdown Rashes: no rashes Weight / BMI Weight Weight: 147 lb 4.301 oz Body Mass Index (BMI) 22.3 ABG / Lab / Microbiology Data 01/19/24 05:23 01/19/24 05:23 Laboratory: Laboratory Results - last 24 hr 01/19/24 05:23: WBC 12.5 H, RBC 4.08 L, Hgb 12.1, Hct 37.6, MCV 92.2, MCH 29.7, MCHC 32.2, RDW Std Deviation 42.2, RDW Coeff of Joy 12.5, Plt Count 288, MPV 11.9, Neut % (Auto) Not Reportable, Absolute Neuts (auto) 10.3 H, Absolute Lymphs (auto) 0.75 L, Total Counted 100, Neutrophils % (Manual) 82 H, L ymphocytes % (Manual) 6 L, Monocytes % (Manual) 9, Eosinophils % (Manual) 1, Metamyelocytes % 1, Myelocytes % 1 H, Diff Path Review May foll, Platelet Estimate ADEQUATE, RBC Morphology NORM C+C, Sodium 145, Potassium 3.6, Chloride 117 H, Carbon Dioxide 23.0, Anion Gap 6, BUN 23 H, Creatinine 1.09 H, Estim Creat Clear Calc 42.91, Est GFR (MDRD) Af Amer 62, Est GFR (MDRD) Non-Af 52 L, B UN/Creatinine Ratio 21.1 H, Glucose 125 H, Calcium 8.7, Phosphorus 3.2, Magnesium 2.5 Meaningful Use Info Meaningful Use Meaningful Use Diagnoses (Choose all that apply): Ischemic CVA CVA Therapy Assessed for PT,OT and/or ST?: Yes Ischemic Stroke Antithrombotic order at d/c?: No Reason antithrombotic not ordered: Hospice Dx of Atrial fib/flutter?: No Anticoagulant at discharge?: No Reason anticoagulant not ordered: Treatment not Indicated Statin Dosing Therapy Reference: STATIN DOSE THERAPY REFERENCE: * Patients > 75 years receive moderate or high dose statin therapy. * Patients 75 years or YOUNGER should receive HIGH intensity statin dose unless contraindicated. You will be required to document reason for non-treatment if statin daily dose does not meet guidelines. HIGH DOSE STATIN THERAPY DAILY Atorvastatin > than or = to 40 mg Rosuvastatin > than or = to 20 mg Amlodipine + Atorvastatin > than or = to 2.5/40 mg Ezetimibe + Simvastatin 10/80 mg Simvastatin 80mg Statins at discharge?: No Reason Statin not ordered: Hospice Primary Dx Acute Ischemic CVA?: Yes IV thrombolytic ordered during stay?: No Reason IV thrombolytic not ordered: Procedure not Indicated Discharge Plan Admission Admit Date/Time: 01/14/24 12:56 Primary Reason for Your Visit: stroke Attending Provider: Paula Moss Primary Care Provider: Erna Encarnacion Consulting Providers: Hospice [facility] Instructions Additional Instructions / Restrictions: 1. She had urine retention post stroke and had a Jim. It was discontinued the night prior to DC. Bladder scan prior to DC was 140-180. Jim not replaced. Had a UTI but this has been treated and the urine prior to DC of Jim was clears and yellow with no hematuria. 2. Barely eating and drinking. Has dysphagia. Sleeping most of the time. Having hallucinations. Sometimes she is able to answer questions appropriately. Appears to be comfortable. Discharge Orders/Prescriptions Prescriptions: New acetaminophen 325 mg Tablet 650 mg PO Q6H PRN PRN (Reason: Pain Score 1-10) Qty: 1 0RF bisacodyl 10 mg Suppository 10 mg SD X1 PRN (Reason: Constipation) Qty: 1 0RF atropine 1 % Drops 2 drp PO Q3H PRN PRN (Reason: Congestion/drooling) Qty: 1 0RF lorazepam 2 mg/mL Concentrate 0.5 mg sublingual Q4H PRN PRN (Reason: terminal restlessness/seizure) Qty: 1 0RF menthol-zinc oxide [Calmoseptine] 0.44-20.6 % Ointment 1 applic topical 0600,2200 Qty: 1 0RF Protocol: *Topical Application Instructions APPLICATION INSTRUCTIONS: buttocks morphine concentrate 10 mg/0.5 mL Syringe 2.5 mg sublingual Q4H PRN PRN (Reason: pain/severe agitation) 1 Days Qty: 1 0RF Discontinued cholecalciferol (vitamin D3) 1,000 UNIT capsule 1,000 unit PO BID amlodipine 5 mg tablet 5 mg PO DAILY Patient Comments: TAKE 1 TABLET BY MOUTH ONCE DAILY clopidogrel [Plavix] 75 mg tablet 75 mg PO DAILY Qty: 30 1RF clonazepam 0.5 mg tablet 1.5 mg PO QHS Patient Comments: TAKE 3 TABLETS BY MOUTH ONCE DAILY AT BEDTIME citalopram 20 mg tablet 30 mg PO DAILY colestipol 1 gram tablet 1 g PO BID atorvastatin 80 mg Tablet 80 mg PO QHS Qty: 0 0RF meclizine 12.5 mg Tablet 12.5 mg PO TID PRN PRN (Reason: Vertigo) Qty: 0 0RF melatonin 3 mg Tablet 3 mg PO QHS PRN PRN (Reason: Insomnia) Qty: 0 0RF ciprofloxacin HCl 500 mg tablet 500 mg PO BID Qty: 10 0RF sennosides-docusate sodium [Stimulant Laxative Plus] 8.6-50 mg Tablet 2 tab PO BID Referrals / Follow Up: Erna Encarnacion MD [Primary Care Provider] - Disposition Disposition (needs filled in before D/C Order can be placed): Hospice in Medical Facility Charges/Coding Visit Charges Inpatient E&M: 19270 Disch Hosp >30min
--- NOTE | 2024-01-19 13:40 | CASEMGMT ---
Addendum entered by Chloe Gee 01/19/24 13:47: Social Work SW met with pt's spouse and updated that IPU has accepted and pt would be transferred today. Pt's spouse is agreeable. Emotional support provided to pt's spouse. TEMO Ariza Original Note: Social Work Pt has been accepted at the [facility] and pt will be transferred today. Hospice nurse stating they will provide transportation. TEMO Whitley
--- NOTE | 2024-01-19 14:28 | CHAPLAIN ---
Type of Pastoral Visit ___ Initial Visit _x__ Follow-up Visit ___ On-call Visit ___ General Patient Visit ___ Spiritual Assessment ___ Family Conference ___ Bereavement ___ Rapid Response ___ Code Blue ___ Other (describe below) Pastoral Care Referral From ___ Patient _x__ Family ___ Nurse ___ Physician ___ Mattress Packer ___ Senior Court Office Assistant ___ Other (describe below) Sacrament/Intervention _x__ Active listening ___ Anointing ___ Judaism ___ Bereavement ___ Communion ___ Lucía exploration ___ _x__ Life review _x__ Prayer ___ Reconciliation ___ Sacrament of Sick _x__ Supportive presence ___ Wedding ___ Other (describe below) Pastoral Comments patient was previously seen in PCU after her stroke; spouse is in the room with her; pt is able to speak and appears to understand the questions due to appropriate responses that she makes; pt states that she is having a better day; spouse agrees that this is about as good as she has been; asked permission of pt to speak with her spouse for a few minutes and she agreed; stepped outside of room at request of the spouse who discloses that hospice has been consulted and will be picking up patient sometime yet today; spouse is acknowledging that medical team recognizes that pt is not going to get better; spouse wants pt to be comfortable as her condition deteriorates; offer of support and presence to spouse; spouse indicates that they do not have other family support with exception of a son who has promised to come here from out of state; pt welcomes prayer; prayer and reminders of the scriptures are given; pt acknowledges with several 'amens';
--- NOTE | 2024-01-19 16:11 | NURSING ---
Report called to hospice nurse.
[2024-01-19 17:56] VITALS: BP 145/73; PULSE 81; RESP 16; TEMP 36.2; O2SAT 97
--- NOTE | 2024-01-19 18:00 | NURSING ---
Discharged at this time via ambulance transport and family here at this time. Patient dc to hospice home.
[2024-01-22 14:20] LABS: Pathologist Review Reviewed
== END 2024-01-19 18:05 | disposition hospice, inpatient (51) | DRG 57 ==
PROVIDERS: Admitting Provider Internal Medicine; PCP Internal Medicine; Visit Provider Internal Medicine
DX: I69.393 Ataxia following cerebral infarction (principal); E87.20 Acidosis, unspecified; I69.354 Hemiplegia and hemiparesis following cerebral infarction affecting left non-dominant side; N30.01 Acute cystitis with hematuria; F02.80 Dementia in other diseases classified elsewhere, unspecified severity, without behavioral disturbance, psychotic disturbance, mood disturbance, and anxiety; N18.32 Chronic kidney disease, stage 3b; G20.A1 Parkinson's disease without dyskinesia, without mention of fluctuations; I12.9 Hypertensive chronic kidney disease with stage 1 through stage 4 chronic kidney disease, or unspecified chronic kidney disease; F32.A Depression, unspecified; I69.322 Dysarthria following cerebral infarction; E53.8 Deficiency of other specified B group vitamins; G47.33 Obstructive sleep apnea (adult) (pediatric); E78.5 Hyperlipidemia, unspecified; F41.9 Anxiety disorder, unspecified; I69.391 Dysphagia following cerebral infarction; I69.318 Other symptoms and signs involving cognitive functions following cerebral infarction; G31.83 Neurocognitive disorder with Lewy bodies; G47.52 REM sleep behavior disorder; Z79.02 Long term (current) use of antithrombotics/antiplatelets; B96.4 Proteus (mirabilis) (morganii) as the cause of diseases classified elsewhere; R33.9 Retention of urine, unspecified; R13.12 Dysphagia, oropharyngeal phase; Z79.899 Other long term (current) drug therapy
CPT/HCPCS: 36415; 70450; 80048; 80053; 82962; 83735; 84100; 85025; 85027; 92507; 92523; 92526; 92610; 94003; 94660; 94668; 97110; 97112; 97116; 97162; 97166; 97530; 97535; 97542; 97802; A4216